=== PATIENT | male | born 1975 | race African-American/Black ===

== ENCOUNTER 2016-09-04 10:36 | Emergency (ER) | payer SELFPAY ==
[~2016-09-04] VITALS: Ht 182.9 cm; Wt 84.0 kg
[2016-09-04 10:42] VITALS: Ht 182.9 cm; Wt 84.0 kg
[2016-09-04] MEDS ORDERED: IBUPROFEN 800 MG TAB PO ONE (11:00)
--- NOTE | 2016-09-04 11:11 | RADRPT ---
PROCEDURE: XR Chest AP portable CLINICAL INDICATION: Chest pain TECHNIQUE: An AP portable radiograph of the chest was submitted. COMPARISON: None. FINDINGS: Support Hardware: None Cardiovascular: The cardiovascular silhouette appears unremarkable. Lung Carranza: The lung carranza appear clear with no nodule, alveolar infiltrate, or interstitial promi nence evident. Pleural Spaces: No pneumothorax or pleural effusion is identified. Osseous Structures: The osseous structures appear intact. Soft Tissues: The soft tissues appear unremarkable. IMPRESSION: Unremarkable portable chest. Physician Keith Date Time Electronically viewed and signed by Alvarez Fernandez Physician on 09/04/2016 11:11 /
[2016-09-04] MEDS ORDERED: IBUP-1542 PO (11:23)
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
[2016-09-04 12:23] VITALS: BP 126/86; PULSE 80; RESP 18
== END 2016-09-04 12:30 | disposition home or self-care (01) ==
LOC: E/R 10:36
DX: R07.9 Chest pain, unspecified (principal); F17.210 Nicotine dependence, cigarettes, uncomplicated
CPT/HCPCS: 71010; 93005

== ENCOUNTER 2016-10-04 10:58 | Inpatient (IN) | payer MEDICAID ==
[~2016-10-04] VITALS: Ht 182.9 cm; Wt 88.5 kg
[~2016-10-04 10:58] MED LIST: IBUP-1542 PO
[2016-10-04] MEDS ORDERED: morphine 4 MG/ML VIAL IV STA ×3 (12:22→18:42)
[2016-10-04] MEDS ORDERED: ONDANSETRON 4 MG INJ IV STA (12:22)
[2016-10-04 13:01] LABS: ADD SCAN DIFF NO
[2016-10-04 13:05] LABS: BASOPHILS % 0.2 % (0.0-2.0); EOSINOPHILS # 0.3 10^3/ul (0.0-0.5); EOSINOPHILS % 4.5 % (0.0-7.0); HEMOGLOBIN 13.6 g/dl (14.0-18.0); LYMPHOCYTES # 1.2 10^3/ul (0.8-2.9); LYMPHOCYTES % 18.5 % (15.0-51.0); MEAN CORPUSCULAR HEMOGLOBIN 27.9 pg (29.0-33.0); MEAN CORPUSCULAR VOLUME 82.1 fl (82.0-101.0); MEAN PLATELET VOLUME 9.8 fl (7.4-10.4); MONOCYTE # 0.6 10^3/ul (0.3-0.9); MONOCYTES % 9.5 % (0.0-11.0); NEUTROPHIL # 4.1 10^3/ul (1.6-7.5); NEUTROPHILS % 66.8 % (39.0-77.0); PLATELET COUNT 196 10^3/UL (140-415); RED BLOOD COUNT 4.87 10^6/ul (4.70-6.10); RED CELL DISTRIBUTION WIDTH 12.9 % (11.5-14.5); WHITE BLOOD COUNT 6.2 10^3/ul (4.8-10.8)
--- NOTE | 2016-10-04 13:12 | RADRPT ---
PROCEDURE: Chest Radiograph. CLINICAL INDICATION: Chest pain. Back pain. TECHNIQUE: Single frontal chest radiograph. COMPARISON: Chest radiograph 09/04/2016 FINDINGS: The cardiomediastinal silhouette is within normal limits. No infiltrate or effusion is seen. Th e bones are intact. IMPRESSION: 1. Unremarkable chest radiograph. RPTAT: KK .Maulik Joseph MD, MD Date Time Electronically viewed and signed by .Maulik Joseph MD, on 10/04/2016 13:12 .B/
[2016-10-04 13:20] LABS: CHLORIDE 101 mmol/L (97-110)
[2016-10-04 13:21] LABS: POTASSIUM 3.7 mmol/L (3.5-5.1); SODIUM 137 mmol/L (135-144)
[2016-10-04 13:22] LABS: INR 0.94; PROTIME 12.6 Sec (12.2-14.2)
[2016-10-04 13:23] LABS: CREATININE 0.91 mg/dl (0.61-1.24); PARTIAL THROMBOPLASTIN TIME 21.6 Sec (25.0-35.0)
[2016-10-04 13:24] LABS: ANION GAP 11 (8-16); BLOOD UREA NITROGEN 11 mg/dl (7-20); CALCIUM 8.5 mg/dl (8.4-10.2); CARBON DIOXIDE 29 mmol/L (21-31); GLUCOSE 107 mg/dl (70-220)
[2016-10-04 13:25] LABS: D-DIMER 3778.32 ng/ml (<460)
[2016-10-04 13:36] LABS: TROPONIN-I < 0.012 ng/ml (0.00-0.12)
[2016-10-04] MEDS ORDERED: SOD CHLORIDE 0.9% 100 ML ONE (13:57)
[2016-10-04] MEDS ORDERED: IOHEXOL 100 ML ONE (13:57)
--- NOTE | 2016-10-04 14:00 | RADRPT ---
PROCEDURE: US DVT. CLINICAL INDICATION: Left calf pain. History of deep venous thrombosis TECHNIQUE: Multiple longitudinal and transverse images of the left lower extremity veins were obta ined with anderson scale and color Doppler imaging. 2D grayscale measurements with compression, color D oppler flow, and augmentation was performed. The calf veins were interrogated as well. COMPARISON: No prior studies are available for comparison. FINDINGS: The left common femoral, superficial femoral and popliteal veins are normally compressible throughou t. Color flow demonstrates normal filling of the vessel. Normal waveforms are visualized and there is normal response to augmentation. However the posterior tibial and peroneal veins demonstrate some echogenic material and are not comp ressible. IMPRESSION: 1. Thrombus seen in the left posterior tibial and peroneal veins. The common femoral, femoral vein and popliteal veins are unremarkable however. Note: A call report was made to Irina Myrick on 10/04/2016 1:58:07 PM. RPTAT: [facility] Physician Gretel Date Time Electronically viewed and signed by Physician Gretel on 10/04/2016 13:59 /
--- NOTE | 2016-10-04 14:41 | RADRPT ---
PROCEDURE: CT ANGIOGRAPHY CHEST CLINICAL INDICATION: Shortness of breath TECHNIQUE: Volumetrically acquired images of the thorax obtained with intravenous contrast were re formatted in the axial, coronal, and sagittal planes. CTDI = 13.3 mGy; DLP = 524 mGy-cm. 100 cc of Omnipaque 350 was administered. 3D MIP multiplanar reconstructions were performed and evaluated on the workstation. One or more of the following dose reduction technique were used: Automatic exposure control, adjustment of the mA and/or kV according to patient size, and use of iterative reconstruct ion technique. COMPARISON: 10/04/2016. FINDINGS: LOWER NECK AND CHEST WALL: Normal. AIRWAYS: The trachea and large airways are normal. Minimal bronchial wall thickening is seen. LUNGS: Clear. No suspicious nodules, masses, or consolidation. PLEURA: Unremarkable. No pleural thickening or effusions. LYMPH NODES: No significant axillary, hilar, or mediastinal lymphadenopathy by CT size criteria. CARDIAC: The heart size is normal. No pericardial effusion. VASCULAR: There is segmental filling defects seen in the right lower lobe pulmonary arteries as well as the left lobe are and segmental pulmonary arteries. The aorta and main pulmonary artery are nor mal in caliber. Aortic and coronary atherosclerotic calcifications are present. OSSEOUS: No suspicious osseous lesions. Scattered degenerative changes of the thoracic spine is vis ualized. Limited evaluation of the upper abdomen is unremarkable. IMPRESSION: 1. Acute pulmonary emboli seen in the left lower lobar and segmental arteries as well as the right lower lobe segmental arteries. These findings were discussed with Dr. Carcamo at 10/04/2016 2:40:22 PM . 2. Minimal bronchial wall thickening may be sequela of bronchitis, asthma, or other nonspecific air way inflammation. RPTAT:PP .Donavan Garcia MD, MD Date Time Electronically viewed and signed by .Donavan Garcia MD, MD on 10/04/2016 14:40 .V/
[2016-10-04] MEDS ORDERED: NACL 0.9% 3 ML SYG IV SCH (16:00)
[2016-10-04] MEDS ORDERED: morphine 2 MG INJ IV PRN (16:00)
--- NOTE | 2016-10-04 16:07 | ERA ---
ER Documentation Chief Complaint Date/Time DATE: 10/04/16 TIME: 15:47 Chief Complaint lt side lower back pain after plasma donation yesterday , left calf pain HPI 41-year-old male complaining of left mid back pain since yesterday. The pain is sharp and constant, onset gradually last night. Patient stated that he had pulmonary embolism 3 years ago, this pain feels exactly like the previous PE. He currently has shortness of breath. He gave plasma donation yesterday. Patient also complaining of left calf pain since yesterday. He reports subjective fever last night, but did not check his temperature. Patient stated that he was on anticoagulant for 6 month after his previous PE. Denies smoking cigarettes, smoke marijuana and drink alcohol on occasion. Denies illicit drug use. Denies any other medical history. ROS All systems reviewed and are negative except as per history of present illness. Medications Home Meds Active Scripts Ibuprofen* (Motrin*) 600 Mg Tab, 600 MG PO Q6H Y for PAIN AND OR ELEVATED TEMP, #30 TAB Prov:JOHN CAUSEY MD 09/04/16 Allergies Allergies: Coded Allergies: No Known Allergy (Unverified , 10/04/16) PMhx/Soc Medical and Surgical Hx: pt denies Surgical Hx History of Surgery: No Anesthesia Reaction: No Hx Neurological Disorder: No Hx Respiratory Disorders: No Hx Cardiac Disorders: No Hx Psychiatric Problems: No Hx Miscellaneous Medical Probl: Yes (blood clots ( lung)) Hx Alcohol Use: Yes Hx Substance Use: Yes (marijuana) Hx Tobacco Use: Yes Smoking Status: Current every day smoker Physical Exam Vitals Vital Signs Date Time Temp Pulse Resp B/P Pulse Ox O2 Delivery O2 Flow Rate FiO2 10/04/16 15:22 102 20 118/68 100 Nasal Cannula 2.0 10/04/16 11:00 99.2 92 18 134/82 100 Physical Exam General: Well-developed, well-nourished, conscious and coherent, appears to be pain Skin: Warm and dry without rash, good texture and turgor Head: Normocephalic without evidence of trauma Eyes: Sclera and conjunctivae normal; pupils equal, round, and reactive to light; extraocular movements are intact Neck: Supple without meningismus or adenopathy. Carotids are equal. Trachea midline. No bruits or JVD Chest: Normal AP diameter, good expansion without retractions. Nontender. Lungs are clear to auscultate bilaterally with good tidal volume Heart: Regular rate and rhythm. No murmur, rub, or gallop heard Abdomen: Soft and nontender without masses, guarding, or rebound. Bowel sounds are active. No hepatosplenomegaly Back: Without spinal or CVA tenderness. No tenderness to palpation in the posterior chest wall. Extremities: Full range of motion. Good strength bilaterally. No clubbing, cyanosis, or edema. Peripheral pulses are intact. Sensation intact. No erythema, warmness, or swelling noted in the left calf, mildly tender Neuro: Alert and oriented. Mental status normal, speech clear. Cranial nerves grossly intact Result Diagram: 10/04/16 1250 10/04/16 1250 Results 24 hrs Laboratory Tests Test 10/04/16 12:50 White Blood Count 6.210^3/ul Red Blood Count 4.8710^6/ul Hemoglobin 13.6g/dl Hematocrit 40.0% Mean Corpuscular Volume 82.1fl Mean Corpuscular Hemoglobin 27.9pg Mean Corpuscular Hemoglobin Concent 34.0g/dl Red Cell Distribution Width 12.9% Platelet Count 89519^3/UL Mean Platelet Volume 9.8fl Neutrophils % 66.8% Lymphocytes % 18.5% Monocytes % 9.5% Eosinophils % 4.5% Basophils % 0.2% Nucleated Red Blood Cells % 0.0/100WBC Neutrophils # 4.110^3/ul Lymphocytes # 1.210^3/ul Monocytes # 0.610^3/ul Eosinophils # 0.310^3/ul Basophils # 0.010^3/ul Nucleated Red Blood Cells # 0.010^3/ul Prothrombin Time 12.6Sec Prothrombin Time Ratio 1.0 INR International Normalized Ratio 0.94 Activated Partial Thromboplast Time 21.6Sec D-Dimer 3778.32ng/ml D-Dimer Comment Sodium Level 137mmol/L Potassium Level 3.7mmol/L Chloride Level 101mmol/L Carbon Dioxide Level 29mmol/L Anion Gap 11 Blood Urea Nitrogen 11mg/dl Creatinine 0.91mg/dl Glucose Level 107mg/dl Calcium Level 8.5mg/dl Troponin I < 0.012ng/ml Current Medications Medications (Trade) Dose Ordered Sig/Eleazar Route PRN Reason Start Time Stop Time Status Last Admin Dose Admin Morphine Sulfate (morphine) 4 mg ONCE STAT IV 10/04/16 12:22 10/04/16 12:26 DC 10/04/16 12:58 Ondansetron HCl (Zofran Inj) 4 mg ONCE STAT IV 10/04/16 12:22 10/04/16 12:26 DC 10/04/16 12:58 IV Flush 10 ml 10 ml STK-MED ONCE .ROUTE 10/04/16 13:57 10/04/16 13:58 DC Sodium Chloride 100 ml @ ud STK-MED ONCE .ROUTE 10/04/16 13:57 10/04/16 13:58 DC 10/04/16 14:14 Iohexol (Omnipaque) 100 ml @ ud STK-MED ONCE .ROUTE 10/04/16 13:57 10/04/16 13:58 DC 10/04/16 14:15 Morphine Sulfate (morphine) 4 mg ONCE STAT IV 10/04/16 15:24 10/04/16 15:27 DC 10/04/16 15:31 Enoxaparin Sodium (Lovenox) 85 mg Q12 SC 10/04/16 17:30 PROCEDURE: Chest Radiograph. CLINICAL INDICATION: Chest pain. Back pain. TECHNIQUE: Single frontal chest radiograph. COMPARISON: Chest radiograph 09/04/2016 FINDINGS: The cardiomediastinal silhouette is within normal limits. No infiltrate or effusion is seen. The bones are intact. IMPRESSION: 1. Unremarkable chest radiograph. RPTAT: KK .Maulik Joseph MD, Date Time Electronically viewed and signed by .Maulik Joseph MD, MD on 2016 13:12 .B/ CC: MARIO ALBERTO RUIZ NP PROCEDURE: US DVT. CLINICAL INDICATION: Left calf pain. History of deep venous thrombosis TECHNIQUE: Multiple longitudinal and transverse images of the left lower extremity veins were obtained with anderson scale and color Doppler imaging. 2D grayscale measurements with compression, color Doppler flow, and augmentation was performed. The calf veins were interrogated as well. COMPARISON: No prior studies are available for comparison. FINDINGS: The left common femoral, superficial femoral and popliteal veins are normally compressible throughout. Color flow demonstrates normal filling of the vessel. Normal waveforms are visualized and there is normal response to augmentation. However the posterior tibial and peroneal veins demonstrate some echogenic material and are not compressible. IMPRESSION: 1. Thrombus seen in the left posterior tibial and peroneal veins. The common femoral, femoral vein and popliteal veins are unremarkable however. Note: A call report was made to [facility]. Mario Alberto Ruiz on 10/04/2016 1:58:07 PM. RPTAT: [facility] Physician Gretel Date Time Electronically viewed and signed by Physician Gretel on 10/04/2016 13: 59 JH/ CC: MARIO ALBERTO RUIZ NP PROCEDURE: CT ANGIOGRAPHY CHEST CLINICAL INDICATION: Shortness of breath TECHNIQUE: Volumetrically acquired images of the thorax obtained with intravenous contrast were reformatted in the axial, coronal, and sagittal planes. CTDI = 13.3 mGy; DLP = 524 mGy-cm. 100 cc of Omnipaque 350 was administered. 3D MIP multiplanar reconstructions were performed and evaluated on the workstation. One or more of the following dose reduction technique were used: Automatic exposure control, adjustment of the mA and/or kV according to patient size, and use of iterative reconstruction technique. COMPARISON: 10/04/2016. FINDINGS: LOWER NECK AND CHEST WALL: Normal. AIRWAYS: The trachea and large airways are normal. Minimal bronchial wall thickening is seen. LUNGS: Clear. No suspicious nodules, masses, or consolidation. PLEURA: Unremarkable. No pleural thickening or effusions. LYMPH NODES: No significant axillary, hilar, or mediastinal lymphadenopathy by CT size criteria. CARDIAC: The heart size is normal. No pericardial effusion. VASCULAR: There is segmental filling defects seen in the right lower lobe pulmonary arteries as well as the left lobe are and segmental pulmonary arteries. The aorta and main pulmonary artery are normal in caliber. Aortic and coronary atherosclerotic calcifications are present. OSSEOUS: No suspicious osseous lesions. Scattered degenerative changes of the thoracic spine is visualized. Limited evaluation of the upper abdomen is unremarkable. IMPRESSION: 1. Acute pulmonary emboli seen in the left lower lobar and segmental arteries as well as the right lower lobe segmental arteries. These findings were discussed with Dr. Carcamo at 10/04/2016 2:40:22 PM. 2. Minimal bronchial wall thickening may be sequela of bronchitis, asthma, or other nonspecific airway inflammation. RPTAT:PP .Donavan Garcia MD, MD Date Time Electronically viewed and signed by .Donavan Garcia MD, on 10/04/2016 14:40 .V/ CC: MARIO ALBERTO RUIZ. [facility] Procedures/MDM Well-appearing 41-year-old male with history of PE presented to ED with left mid back pain, left calf pain, and shortness of breath. EKG: Normal sinus rhythm rate 96 bpm, normal axis. No ST segment elevation or depression. No ectopic beats. No QT prolongation. No other EKG abnormalities. EKG read by Dr. Singer. Checks x-ray is negative for acute cardiopulmonary processes. CBC, CMP, PT/PTT are all unremarkable. Troponin is negative. D-dimer is 3778. CT angiography of the chest is obtained, acute pulmonary emboli were seen in the left lower lobar and segmental arteries as well as the right lower lobe segmental arteries. Patient is oxygen saturation remains at 100% throughout the ED course, hemodynamically stable. Morphine 4 mg was given to the patient initially for pain. Patient appeared to be comfortable after morphine, but still complaining of pain. Additional 4 mg morphine given to the patient. I spoke to the hospitalist, Dr. Beard. Dr. Hirsch agrees to admit the patient to [facility] floor. The case was reviewed and discussed with Dr. Jordan, who agrees with the plan of care including labs, treatment, and advanced imaging as appropriate. Departure Diagnosis: Primary Impression: Pulmonary embolism Qualified Code: I26.99 - Other acute pulmonary embolism without acute cor pulmonale Additional Impression: DVT (deep venous thrombosis) Qualified Code: I82.432 - Deep vein thrombosis (DVT) of popliteal vein of left lower extremity, unspecified chronicity Condition: Stable MARIO ALBERTO RUIZ NP October 04, 2016 15:57
--- NOTE | 2016-10-04 16:50 | HP ---
DATE OF ADMISSION: 10/04/2016 REASON FOR ADMISSION: Left calf pain and left-sided chest wall pain. Procurement Representative: 1. Keturah Sue MD, Hematology. HISTORY OF PRESENT ILLNESS: This is a 41-year-old -Serbian male with past medical history of pulmonary embolism approximately 3 years ago that was treated with 6 months of Coumadin, who came to the emergency room with chief complaint of sudden onset of left calf pain followed by left-sided chest pain that started on 10/03/2016. He frequently gives donation of his plasma. He had his plasma donated on 10/03/2016, during which he felt left calf pain that became progressively worse towards the evening and late night. This was also associated with left chest wall pain that was worsened with deep inspiration. The patient denied any diaphoresis, nausea, or vomiting. The patient denied any headache. He denied any shortness of breath. He denied any fevers or chills. In the emergency room, the patient was noticed to have an elevated D-dimer. The patient underwent a CT angiogram of the chest that showed acute pulmonary emboli seen in the left lower lobar and segmental arteries as well as right lower lobe segmental arteries. The patient also underwent a bilateral lower extremity venous Doppler study that showed thrombosis in the left posterior tibial and peroneal veins. PAST MEDICAL HISTORY: Pulmonary embolism. PAST SURGICAL HISTORY: Denies. HOME MEDICATIONS: None. ALLERGIES: NO KNOWN DRUG ALLERGIES. 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 Occasional alcohol drinker and occasional tobacco smoker. Also smokes marijuana in between. FAMILY HISTORY: Negative for any hypercoagulability. REVIEW OF SYSTEMS: A 12-point review of systems was made and the review of systems is negative other that what is mentioned in the history of present illness. PHYSICAL EXAMINATION: VITAL SIGNS: Temperature 99.2, pulse rate 102, respiratory rate 20, blood pressure 118/62, oxygen saturation 100% on low-flow O2. GENERAL: This is well-built, well-nourished -Serbian male lying in bed in no apparent distress. HEENT: Head normocephalic and atraumatic. Eyes: Anicteric sclerae. Conjunctivae clear. ENT: Nasal septum is midline. Oral mucosa is moist. NECK: Supple. No JVD noticed. RESPIRATORY: Bilaterally diminished breath sounds. No adventitious breath sounds heard. No use of accessory muscles of respiration. CARDIAC: Regular rate and rhythm. Sinus tachycardia. ABDOMEN: Soft, nontender and nondistended. Bowel sounds positive in all 4 quadrants. GENITOURINARY: Deferred. EXTREMITIES: No cyanosis, no clubbing, no edema. Calf tenderness of the left leg. Peripheral pulses palpable. NEUROLOGIC: The patient is awake, alert and oriented. Cranial nerves are grossly intact. LABORATORY AND DIAGNOSTIC DATA: 1. WBC 6.3, hemoglobin 13.6, hematocrit 40.0, platelet count 196. Sodium 137, potassium 3.7, chloride 101, carbon dioxide 29, anion gap 11, BUN 11, creatinine 0.91, glucose 107, calcium 8.5. Troponin I less than 0.012. PT 12.6 , INR 0.94. D-dimer 3778. 2. Chest x-ray. Unremarkable chest radiograph. 3. Left lower extremity venous Doppler study. Thrombus seen in the left posterior tibial and peroneal veins. 4. CT angiogram of the chest. Acute pulmonary embolus in the left lower lobar and segmental arteries as well as right lower lobe segmental arteries. Minimal bronchial wall thickening, may be saccular bronchitis, asthma or other nonspecific airway inflammation. IMPRESSION: This is a 41-year-old -Serbian male with prior history of pulmonary embolism, who came to the emergency room with chief complaint of left calf pain as well as chest pain, who was found to have evidence of left lower extremity deep venous thrombosis as well as bilateral pulmonary emboli, who will be admitted here for further treatment and evaluation. ASSESSMENT AND PLAN: 1. Bilateral pulmonary emboli. The patient will be started on therapeutic Lovenox. The patient denied any risks factors including any long flight, prolonged immobility or family history. The patient will be worked up for hypercoagulable disorder including protein C, protein S, antithrombin III, factor V Leiden mutation, prothrombin gene mutation and lupus anticoagulant. A hematology consult will be obtained. 2. Left lower extremity deep venous thrombosis. Plan of care as per #1. Plan. The patient will be admitted to inpatient setting. The patient will be started on a regular diet. The patient will be started on gastrointestinal prophylaxis. The patient will be started on therapeutic anticoagulation for his underlying DVT and PE. Activities will be bed rest until the morning. The patient will remain a FULL CODE. The rest of the patient's management will be based on the clinical course, the results of diagnostic studies, and inputs from consultants. Based on the patient's clinical presentation, he most probably requires at least 1 midnight's stay for further management and evaluation of his clinical presentation. The case and management of this patient was fully discussed with Dr. Bustillo. NING BUSTILLO MD, AM/PEDRO Conf#: [id number] DID#: [id number] MTDD
[2016-10-04] MEDS: ENOXAPARIN 80 MG/0.8 ML SYG SC SCH (16:51)
[2016-10-04 17:40] LABS: BARBITURATES NEGATIVE (NEGATIVE); BENZODIAZEPINES NEGATIVE (NEGATIVE); CANNABINOIDS NEGATIVE (NEGATIVE); COCAINE NEGATIVE (NEGATIVE); OPIATES POSITIVE (NEGATIVE)
[2016-10-04 17:46] LABS: INR 0.95; PARTIAL THROMBOPLASTIN TIME 24.6 Sec (25.0-35.0); PROTIME 12.7 Sec (12.2-14.2)
[2016-10-04 18:24] VITALS: TEMP 99.4
[2016-10-04] MEDS ORDERED: ONDANSETRON 4 MG INJ IV PRN (18:30)
[2016-10-04] MEDS ORDERED: ACETAMINOPHEN 325 MG TAB PO PRN (18:30)
[2016-10-04] MEDS: HYDROmorphONE 1 MG/ML SYG IV PRN (20:43)
[2016-10-04] MEDS: FAMOTIDINE 20 MG TAB PO SCH (21:54)
[2016-10-04 22:21] VITALS: Ht 182.9 cm; Wt 88.5 kg
[2016-10-04 22:29] VITALS: BP 128/60; PULSE 95; RESP 18
[2016-10-05] MEDS: ACETAMINOPHEN 325 MG TAB PO PRN (00:46)
[2016-10-05 05:40] LABS: ADD SCAN DIFF NO
[2016-10-05 05:45] LABS: BASOPHILS % 0.4 % (0.0-2.0); EOSINOPHILS # 0.2 10^3/ul (0.0-0.5); EOSINOPHILS % 4.1 % (0.0-7.0); HEMATOCRIT 35.2 % (42.0-52.0); HEMOGLOBIN 11.9 g/dl (14.0-18.0); LYMPHOCYTES # 1.2 10^3/ul (0.8-2.9); LYMPHOCYTES % 20.8 % (15.0-51.0); MEAN CORPUSCULAR HEMOGLOBIN 27.9 pg (29.0-33.0); MEAN CORPUSCULAR HGB CONC 33.8 g/dl (32.0-37.0); MEAN CORPUSCULAR VOLUME 82.4 fl (82.0-101.0); MEAN PLATELET VOLUME 10.1 fl (7.4-10.4); MONOCYTE # 0.8 10^3/ul (0.3-0.9); MONOCYTES % 14.9 % (0.0-11.0); NEUTROPHIL # 3.3 10^3/ul (1.6-7.5); NEUTROPHILS % 59.6 % (39.0-77.0); PLATELET COUNT 155 10^3/UL (140-415); RED BLOOD COUNT 4.27 10^6/ul (4.70-6.10); RED CELL DISTRIBUTION WIDTH 12.6 % (11.5-14.5); WHITE BLOOD COUNT 5.6 10^3/ul (4.8-10.8)
[2016-10-05 06:05] LABS: ALBUMIN 2.8 g/dl (3.3-4.9)
[2016-10-05 06:06] LABS: POTASSIUM 3.6 mmol/L (3.5-5.1)
[2016-10-05 06:08] LABS: ALBUMIN/GLOBULIN RATIO 1.03; BILIRUBIN,INDIRECT 0.8 mg/dl (0-1.1); BILIRUBIN,TOTAL 0.8 mg/dl (0.2-1.3); CREATININE 0.89 mg/dl (0.61-1.24); TOTAL PROTEIN 5.5 g/dl (6.1-8.1)
[2016-10-05 06:09] LABS: CALCIUM 7.9 mg/dl (8.4-10.2)
[2016-10-05 07:47] LABS: CHOL/HDL RATIO 3.4 RATIO; MAGNESIUM 1.8 mg/dl (1.7-2.5); PHOSPHORUS 3.8 mg/dl (2.5-4.9)
[2016-10-05 08:14] LABS: THYROID STIMULATING HORMONE 0.481 MIU/L (0.465-4.680)
[2016-10-05 08:32] VITALS: BP 111/59; RESP 18
[2016-10-05] MEDS: HYDROmorphONE 1 MG/ML SYG IV PRN ×4 (09:24→20:01)
[2016-10-05] MEDS: FAMOTIDINE 20 MG TAB PO SCH ×2 (09:24→21:12)
[2016-10-05] MEDS: ENOXAPARIN 80 MG/0.8 ML SYG SC SCH ×2 (09:34→21:10)
--- NOTE | 2016-10-05 15:56 | CONS ---
Date/Time of Note Date/Time of Note DATE: 10/05/16 TIME: 15:48 Assessment/Plan Assessment/Plan Chief Complaint/Hosp Course The patient is a 41 year old male with: 1. Bilateral pulmonary emboli. The patient will be started on therapeutic Lovenox. Given recurrent PE, he may warrant lifelong anticoagulation. The patient denied other risks factors including any long flight, prolonged immobility or family history. The patient will be worked up for hypercoagulable disorder including protein C, protein S, antithrombin III, factor V Leiden mutation, prothrombin gene mutation and lupus anticoagulant; will also add beta2 glycoprotein IgM and IgG and anticardiolipin IgM and IGG. 2. Left lower extremity deep venous thrombosis. Plan of care as per #1. - Patient on therapeutic lovenox and started on coumadin. Will need to overlap coumadin and lovenox at least 5 days and until INR > 2 for 2 days. If patient found to be negative for antiphospholipid antibody syndrome, could switch to one of the new oral anticoaulgants such as eliquis or xarelto. - Smoking cessation discussed as contributes to hypercoagulable state - patient states that he will stop entirely - Continue to monitor for worsening of hemoptysis while on anticoagulation - so far stable. Patient on 2 L NC. - Patient should follow up with me or Dr. Braxton upon discharge Problems: Consultation Date/Type/Reason Admit Date/Time October 04, 2016 at 18:31 Date of Consultation: October 05, 2016 Type of Consultation: Hematology Reason for Consultation Recurrent PE Hx of Present Illness This is a 41-year-old -Italian male with past medical history of idiopathic pulmonary embolism approximately 3 years ago that was treated with 6 months of Coumadin, who came to the emergency room with chief complaint of sudden onset of left calf pain followed by left-sided chest pain that started on 10/03/2016. He frequently gives donation of his plasma. He had his plasma donated on , during which he felt the left calf pain that became progressively worse towards the evening and late night. This was also associated with left chest wall pain that was worsened with deep inspiration. The patient currently complains of bilateral pleuritic chest pain with SOB and mild left leg pain. He also complains of dime-sized hemoptysis. He denies any recent surgery, trauma, immobility, long plane or car rides. He has 1-2 cigarettes a couple of times per month, last a couple of weeks ago. In the emergency room, the patient was noticed to have an elevated D-dimer at 3778. The patient underwent a CT angiogram of the chest that showed acute pulmonary emboli seen in the left lower lobar and segmental arteries as well as right lower lobe segmental arteries. The patient also underwent a bilateral lower extremity venous Doppler study that showed thrombosis in the left posterior tibial and peroneal veins. Past Medical History Pulmonary embolism 3 years ago without precipitating factors, treated with coumadin for 6 months. HTN. 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 Occasional alcohol drinker and occasional tobacco smoker (1-2 cigarettes a couple of times per month). Also smokes marijuana in between. Smoking Status: Current every day smoker Exam/Review of Systems Vital Signs Vitals Vital Signs Date Time Temp Pulse Resp B/P Pulse Ox O2 Delivery O2 Flow Rate FiO2 10/05/16 10:00 Nasal Cannula 2.0 10/05/16 08:32 98.2 84 18 111/59 99 Intake and Output 10/04/16 10/04/16 10/05/16 15:00 23:00 07:00 Intake Total 200 ml 320 ml Output Total 900 ml Balance 200 ml -580 ml Exam Constitutional: alert, distress (mild respiratory distress. on 2L NC), oriented Head: normocephalic Eyes: nl conjunctiva Neck: supple Respiratory: clear to auscultation Cardiovascular: regular rate and rhythm Gastrointestinal: non-tender, soft Musculoskeletal: nl extremities to inspection (left calf TTP, no edema) Neurological: NEUROCRITICAL CARE PHYSICIAN II-XII intact Results Result Diagram: 10/05/16 0502 10/05/16 0502 Results 24 hrs Laboratory Tests Test 10/04/16 17:03 10/04/16 17:20 10/05/16 05:02 Urine Opiates Screen POSITIVE Urine Barbiturates NEGATIVE Urine Amphetamines Screen NEGATIVE Urine Benzodiazepines Screen NEGATIVE Urine Cocaine Screen NEGATIVE Urine Cannabinoids NEGATIVE Prothrombin Time 12.7 Prothrombin Time Ratio 1.0 INR International Normalized Ratio 0.95 Activated Partial Thromboplast Time 24.6 L White Blood Count 5.6 Red Blood Count 4.27 L Hemoglobin 11.9 L Hematocrit 35.2 L Mean Corpuscular Volume 82.4 Mean Corpuscular Hemoglobin 27.9 L Mean Corpuscular Hemoglobin Concent 33.8 Red Cell Distribution Width 12.6 Platelet Count 155 # Mean Platelet Volume 10.1 Neutrophils % 59.6 Lymphocytes % 20.8 Monocytes % 14.9 H Eosinophils % 4.1 Basophils % 0.4 Nucleated Red Blood Cells % 0.0 Neutrophils # 3.3 Lymphocytes # 1.2 Monocytes # 0.8 Eosinophils # 0.2 Basophils # 0.0 Nucleated Red Blood Cells # 0.0 Sodium Level 137 Potassium Level 3.6 Chloride Level 98 Carbon Dioxide Level 30 Anion Gap 13 Blood Urea Nitrogen 7 Creatinine 0.89 Glucose Level 107 Hemoglobin A1c 4.9 Calcium Level 7.9 L Phosphorus Level 3.8 Magnesium Level 1.8 Total Bilirubin 0.8 Direct Bilirubin 0.00 Indirect Bilirubin 0.8 Aspartate Amino Transf (AST/SGOT) 37 Alanine Aminotransferase (ALT/SGPT) 59 Alkaline Phosphatase 37 L Total Protein 5.5 L Albumin 2.8 L Globulin 2.70 Albumin/Globulin Ratio 1.03 Triglycerides Level 70 Cholesterol Level 122 LDL Cholesterol, Calculated 73 HDL Cholesterol 35 Cholesterol/HDL Ratio 3.4 Thyroid Stimulating Hormone (TSH) 0.481 Free Thyroxine 0.74 Medications Medications Current Medications Enoxaparin Sodium (Lovenox) 80 mg Q12 SC Last administered on 10/05/16 09:34; Admin Dose 80 MG; Start 10/04/16 at 16:35 Ondansetron HCl (Zofran Inj) 4 mg Q6H PRN IV NAUSEA AND/OR VOMITING; Start 10/04 at 16:00 Morphine Sulfate (morphine) 4 mg Q4H PRN IV SEVERE PAIN LEVEL 7-10; Start at 16:00 Magnesium Hydroxide (Milk Of Mag) 30 ml DAILY PRN PO CONSTIPATION; Start at 16:00 Famotidine (Pepcid) 20 mg Q12 PO Last administered on 10/05/16 09:24; Admin Dose 20 MG; Start 10/04/16 at 21:00 Acetaminophen (Tylenol Tab) 650 mg Q6H PRN PO PAIN AND OR ELEVATED TEMP Last administered on 10/05/16 00:46; Admin Dose 650 MG; Start 10/05/16 at 00:30 Warfarin Sodium (Coumadin) 5 mg DAILY@17 PO ; Start 10/05/16 at 17:00 Hydromorphone HCl (Dilaudid) 1 mg Q4H PRN IV PAIN; Start 10/05/16 at 13:30 CARRIE BALLARD MD October 05, 2016 15:56
[2016-10-05] MEDS: WARFARIN 5 MG TAB PO SCH (16:31)
[2016-10-05] MEDS: ONDANSETRON 4 MG INJ IV PRN (16:31)
[2016-10-05] MEDS: MAGNESIUM HYDROXIDE 30ML CUP PO PRN (17:10)
--- NOTE | 2016-10-05 17:50 | PN ---
Date/Time of Note Date/Time of Note DATE: 10/05/16 TIME: 17:49 Assessment/Plan VTE Prophylaxis VTE Prophylaxis Intervention: LMWH Lines/Catheters IV [facility]from [facility] Urinary Cath still in place: No Assessment/Plan Assessment/Plan 1. Bilateral pulmonary emboli. The patient will be started on therapeutic Lovenox. the etiology of the patient's some hypercoagulable state. The patient denied other risks factors including any long flight, prolonged immobility or family history. The patient will be worked up for hypercoagulable disorder including protein C, protein S, antithrombin III, factor V Leiden mutation, prothrombin gene mutation and lupus anticoagulant. A hematology consult will be obtained. 2. Left lower extremity deep venous thrombosis. Plan of care as per #1. Subjective 24 Hr Interval Summary Free Text/Dictation c/o leg pain, Bp stable Exam/Review of Systems Vital Signs Vitals Vital Signs Date Time Temp Pulse Resp B/P Pulse Ox O2 Delivery O2 Flow Rate FiO2 10/05/16 10:00 Nasal Cannula 2.0 10/05/16 08:32 98.2 84 18 111/59 99 Intake and Output 10/04/16 10/04/16 10/05/16 15:00 23:00 07:00 Intake Total 200 ml 320 ml Output Total 900 ml Balance 200 ml -580 ml Exam GENERAL: This is well-built, well-nourished -Ind[place]ian male lying in bed in no apparent distress. HEENT: Head normocephalic and atraumatic. Eyes: Anicteric sclerae. Conjunctivae clear. ENT: Nasal septum is midline. Oral mucosa is moist. NECK: Supple. No JVD noticed. RESPIRATORY: Bilaterally diminished breath sounds. No adventitious breath sounds heard. No use of accessory muscles of respiration. CARDIAC: Regular rate and rhythm. Sinus tachycardia. ABDOMEN: Soft, nontender and nondistended. Bowel sounds positive in all 4 quadrants. GENITOURINARY: Deferred. EXTREMITIES: No cyanosis, no clubbing, no edema. Calf tenderness of the left leg. Peripheral pulses palpable. NEUROLOGIC: The patient is awake, alert and oriented. Cranial nerves are grossly intact. Results Result Diagram: 10/05/16 0502 10/05/16 0502 Results 24 hrs Laboratory Tests Test 10/05/16 05:02 White Blood Count 5.6 Red Blood Count 4.27 L Hemoglobin 11.9 L Hematocrit 35.2 L Mean Corpuscular Volume 82.4 Mean Corpuscular Hemoglobin 27.9 L Mean Corpuscular Hemoglobin Concent 33.8 Red Cell Distribution Width 12.6 Platelet Count 155 # Mean Platelet Volume 10.1 Neutrophils % 59.6 Lymphocytes % 20.8 Monocytes % 14.9 H Eosinophils % 4.1 Basophils % 0.4 Nucleated Red Blood Cells % 0.0 Neutrophils # 3.3 Lymphocytes # 1.2 Monocytes # 0.8 Eosinophils # 0.2 Basophils # 0.0 Nucleated Red Blood Cells # 0.0 Sodium Level 137 Potassium Level 3.6 Chloride Level 98 Carbon Dioxide Level 30 Anion Gap 13 Blood Urea Nitrogen 7 Creatinine 0.89 Glucose Level 107 Hemoglobin A1c 4.9 Calcium Level 7.9 L Phosphorus Level 3.8 Magnesium Level 1.8 Total Bilirubin 0.8 Direct Bilirubin 0.00 Indirect Bilirubin 0.8 Aspartate Amino Transf (AST/SGOT) 37 Alanine Aminotransferase (ALT/SGPT) 59 Alkaline Phosphatase 37 L Total Protein 5.5 L Albumin 2.8 L Globulin 2.70 Albumin/Globulin Ratio 1.03 Triglycerides Level 70 Cholesterol Level 122 LDL Cholesterol, Calculated 73 HDL Cholesterol 35 Cholesterol/HDL Ratio 3.4 Thyroid Stimulating Hormone (TSH) 0.481 Free Thyroxine 0.74 Medications Medications Current Medications Enoxaparin Sodium (Lovenox) 80 mg Q12 SC Last administered on 10/05/16 09:34; Admin Dose 80 MG; Start 10/04/16 at 16:35 Ondansetron HCl (Zofran Inj) 4 mg Q6H PRN IV NAUSEA AND/OR VOMITING Last administered on 10/05/16 16:31; Admin Dose 4 MG; Start 10/04/16 at 16:00 Morphine Sulfate (morphine) 4 mg Q4H PRN IV SEVERE PAIN LEVEL 7-10; Start at 16:00 Magnesium Hydroxide (Milk Of Mag) 30 ml DAILY PRN PO CONSTIPATION Last administered on 10/05/16 17:10; Admin Dose 30 ML; Start 10/04/16 at 16:00 Famotidine (Pepcid) 20 mg Q12 PO Last administered on 10/05/16 09:24; Admin Dose 20 MG; Start 10/04/16 at 21:00 Acetaminophen (Tylenol Tab) 650 mg Q6H PRN PO PAIN AND OR ELEVATED TEMP Last administered on 10/05/16 00:46; Admin Dose 650 MG; Start 10/05/16 at 00:30 Warfarin Sodium (Coumadin) 5 mg DAILY@17 PO Last administered on 10/05/16 16:31 ; Admin Dose 5 MG; Start 10/05/16 at 17:00 Hydromorphone HCl (Dilaudid) 1 mg Q4H PRN IV PAIN Last administered on 15:54; Admin Dose 1 MG; Start 10/05/16 at 13:30 CHYNA SOOD MD October 05, 2016 17:50
[2016-10-05 19:25] VITALS: BP 121/60; RESP 18
[2016-10-06] MEDS: ACETAMINOPHEN 325 MG TAB PO PRN ×3 (01:00→20:28)
[2016-10-06 05:38] LABS: ADD SCAN DIFF NO
[2016-10-06 05:56] LABS: BASOPHILS % 0.3 % (0.0-2.0); EOSINOPHILS # 0.1 10^3/ul (0.0-0.5); EOSINOPHILS % 1.8 % (0.0-7.0); HEMATOCRIT 35.1 % (42.0-52.0); HEMOGLOBIN 12.1 g/dl (14.0-18.0); LYMPHOCYTES # 0.9 10^3/ul (0.8-2.9); LYMPHOCYTES % 12.5 % (15.0-51.0); MEAN CORPUSCULAR HEMOGLOBIN 27.9 pg (29.0-33.0); MEAN CORPUSCULAR HGB CONC 34.5 g/dl (32.0-37.0); MEAN CORPUSCULAR VOLUME 81.1 fl (82.0-101.0); MEAN PLATELET VOLUME 10.3 fl (7.4-10.4); MONOCYTE # 1.3 10^3/ul (0.3-0.9); MONOCYTES % 17.8 % (0.0-11.0); NEUTROPHIL # 4.8 10^3/ul (1.6-7.5); NEUTROPHILS % 67.3 % (39.0-77.0); PLATELET COUNT 163 10^3/UL (140-415); RED BLOOD COUNT 4.33 10^6/ul (4.70-6.10); RED CELL DISTRIBUTION WIDTH 11.9 % (11.5-14.5); WHITE BLOOD COUNT 7.1 10^3/ul (4.8-10.8)
[2016-10-06 06:06] LABS: INR 1.02; PROTIME 13.4 Sec (12.2-14.2)
[2016-10-06 06:07] LABS: PARTIAL THROMBOPLASTIN TIME 33.2 Sec (25.0-35.0)
[2016-10-06 06:09] LABS: CALCIUM 8.4 mg/dl (8.4-10.2); CREATININE 0.8 mg/dl (0.61-1.24); POTASSIUM 3.9 mmol/L (3.5-5.1)
[2016-10-06] MEDS: HYDROmorphONE 1 MG/ML SYG IV PRN ×3 (06:20→10:06)
[2016-10-06 08:11] VITALS: BP 114/62; RESP 18
[2016-10-06] MEDS: FAMOTIDINE 20 MG TAB PO SCH ×2 (10:06→21:17)
[2016-10-06] MEDS: ENOXAPARIN 80 MG/0.8 ML SYG SC SCH ×2 (10:12→21:19)
[2016-10-06] MEDS: HYDROmorphONE 2 MG/ML SYG IV PRN ×2 (14:15→19:14)
[2016-10-06 14:20] VITALS: BP 115/58; PULSE 66; RESP 20
[2016-10-06] MEDS: ONDANSETRON 4 MG INJ IV PRN ×2 (15:14)
[2016-10-06] MEDS: WARFARIN 5 MG TAB PO SCH (16:40)
--- NOTE | 2016-10-06 17:19 | PN ---
Date/Time of Note Date/Time of Note DATE: 10/06/16 TIME: 17:16 Assessment/Plan VTE Prophylaxis VTE Prophylaxis Intervention: LMWH, other (coumadin ) Lines/Catheters IV Catheter Type (from Nrs): [facility] Urinary Cath still in place: No Assessment/Plan Assessment/Plan 1. Bilateral pulmonary emboli. Recurrent, S/p CT chest angiogram, on Lovenox bridge with coumadin, 2. Left lower extremity deep venous thrombosis. on lovenox + coumadin 3. acute on chronic pain Plan: Continue coumadin and lovenox bridge once INR therapeutic pain- then will plan for d/c pt has no insurance, [place] [facility] follow up on discharge Increase dialudid to 2 mg IV Q 4 hr prn severe pain Subjective 24 Hr Interval Summary Free Text/Dictation c/o pain in left upper chest, Dialudid 1 mg not working, Bp stable, Exam/Review of Systems Vital Signs Vitals Vital Signs Date Time Temp Pulse Resp B/P Pulse Ox O2 Delivery O2 Flow Rate FiO2 10/06/16 14:20 99.2 66 20 115/58 100 Room Air 10/06/16 09:00 2.0 Intake and Output 10/05/16 10/05/16 10/06/16 15:00 23:00 07:00 Intake Total 1440 ml 660 ml Output Total 850 ml 1050 ml Balance 590 ml -390 ml Exam Constitutional: alert, oriented, well developed Psych: no complaints Head: normocephalic Eyes: nl conjunctiva ENMT: nl external ears & nose Respiratory: clear to auscultation Cardiovascular: nl pulses, regular rate and rhythm Gastrointestinal: bowel sounds, non-tender, soft Extremities: normal pulses Results Result Diagram: 10/06/16 0430 10/06/16 0430 Results 24 hrs Laboratory Tests Test 10/06/16 04:30 White Blood Count 7.1 # Red Blood Count 4.33 L Hemoglobin 12.1 L Hematocrit 35.1 L Mean Corpuscular Volume 81.1 L Mean Corpuscular Hemoglobin 27.9 L Mean Corpuscular Hemoglobin Concent 34.5 Red Cell Distribution Width 11.9 Platelet Count 163 Mean Platelet Volume 10.3 Neutrophils % 67.3 Lymphocytes % 12.5 L Monocytes % 17.8 H Eosinophils % 1.8 Basophils % 0.3 Nucleated Red Blood Cells % 0.0 Neutrophils # 4.8 Lymphocytes # 0.9 Monocytes # 1.3 H Eosinophils # 0.1 Basophils # 0.0 Nucleated Red Blood Cells # 0.0 Prothrombin Time 13.4 Prothrombin Time Ratio 1.0 INR International Normalized Ratio 1.02 Activated Partial Thromboplast Time 33.2 Sodium Level 132 L Potassium Level 3.9 Chloride Level 96 L Carbon Dioxide Level 32 H Anion Gap 8 Blood Urea Nitrogen 8 Creatinine 0.80 Glucose Level 111 Calcium Level 8.4 Medications Medications Current Medications Enoxaparin Sodium (Lovenox) 80 mg Q12 SC Last administered on 10/06/16 10:12; Admin Dose 80 MG; Start 10/04/16 at 16:35 Ondansetron HCl (Zofran Inj) 4 mg Q6H PRN IV NAUSEA AND/OR VOMITING Last administered on 10/06/16 15:14; Admin Dose 4 MG; Start 10/04/16 at 16:00 Morphine Sulfate (morphine) 4 mg Q4H PRN IV SEVERE PAIN LEVEL 7-10 Last administered on 10/06/16 02:27; Admin Dose 4 MG; Start 10/04/16 at 16:00 Magnesium Hydroxide (Milk Of Mag) 30 ml DAILY PRN PO CONSTIPATION Last administered on 10/05/16 17:10; Admin Dose 30 ML; Start 10/04/16 at 16:00 Famotidine (Pepcid) 20 mg Q12 PO Last administered on 10/06/16 10:06; Admin Dose 20 MG; Start 10/04/16 at 21:00 Acetaminophen (Tylenol Tab) 650 mg Q6H PRN PO PAIN AND OR ELEVATED TEMP Last administered on 10/06/16 11:07; Admin Dose 650 MG; Start 10/05/16 at 00:30 Warfarin Sodium (Coumadin) 5 mg DAILY@17 PO Last administered on 10/06/16 16:40 ; Admin Dose 5 MG; Start 10/05/16 at 17:00 Hydromorphone HCl (Dilaudid) 2 mg Q4H PRN IV PAIN Last administered on 14:15; Admin Dose 2 MG; Start 10/06/16 at 12:00 CHYNA SOOD MD October 06, 2016 17:19
--- NOTE | 2016-10-06 18:01 | CONS ---
Date/Time of Note Date/Time of Note DATE: 10/06/16 TIME: 17:59 Assessment/Plan Assessment/Plan Chief Complaint/Hosp Course pt has no insurance, [facility] follow up on dischargeThe patient is a 41 year old male with: 1. Bilateral pulmonary emboli. The patient will be started on therapeutic Lovenox. Given recurrent PE, he may warrant lifelong anticoagulation. The patient denied other risks factors including any long flight, prolonged immobility or family history. The patient will be worked up for hypercoagulable disorder including protein C, protein S, antithrombin III, factor V Leiden mutation, prothrombin gene mutation and lupus anticoagulant; will also add beta2 glycoprotein IgM and IgG and anticardiolipin IgM and IGG. 2. Left lower extremity deep venous thrombosis. Plan of care as per #1. - Patient on therapeutic lovenox and started on coumadin. Will need to overlap coumadin and lovenox at least 5 days and until INR > 2 for 2 days. INR currently 1.02. If patient found to be negative for antiphospholipid antibody syndrome, could switch to one of the new oral anticoaulgants such as eliquis or xarelto. - Smoking cessation discussed as contributes to hypercoagulable state - patient states that he will stop entirely - Continue to monitor for worsening of hemoptysis while on anticoagulation - so far stable to improved. Patient on 2 L NC. - per primary team, pt has no insurance, so will need to go to [facility] for follow up on discharge Problems: Consultation Date/Type/Reason Admit Date/Time October 04, 2016 at 18:31 Initial Consult Date 10/05/16 Type of Consultation: Hematology 24 HR Interval Summary Free Text/Dictation Patient states that he had a fever overnight but overall pain improved so he can sleep. Hemoptysis not worse, slightly better. Exam/Review of Systems Vital Signs Vitals Vital Signs Date Time Temp Pulse Resp B/P Pulse Ox O2 Delivery O2 Flow Rate FiO2 10/06/16 14:20 99.2 66 20 115/58 100 Room Air 10/06/16 09:00 2.0 Intake and Output 10/05/16 10/05/16 10/06/16 15:00 23:00 07:00 Intake Total 1440 ml 660 ml Output Total 850 ml 1050 ml Balance 590 ml -390 ml Exam Constitutional: alert, distress (mild respiratory distress. on 2L NC), oriented Head: normocephalic Eyes: nl conjunctiva Neck: supple Respiratory: clear to auscultation Cardiovascular: regular rate and rhythm Gastrointestinal: non-tender, soft Musculoskeletal: nl extremities to inspection (left calf TTP, no edema) Neurological: [employer] II-XII intact Results Result Diagram: 10/06/16 0430 10/06/16 0430 Results 24 hrs Laboratory Tests Test 10/06/16 04:30 White Blood Count 7.1 # Red Blood Count 4.33 L Hemoglobin 12.1 L Hematocrit 35.1 L Mean Corpuscular Volume 81.1 L Mean Corpuscular Hemoglobin 27.9 L Mean Corpuscular Hemoglobin Concent 34.5 Red Cell Distribution Width 11.9 Platelet Count 163 Mean Platelet Volume 10.3 Neutrophils % 67.3 Lymphocytes % 12.5 L Monocytes % 17.8 H Eosinophils % 1.8 Basophils % 0.3 Nucleated Red Blood Cells % 0.0 Neutrophils # 4.8 Lymphocytes # 0.9 Monocytes # 1.3 H Eosinophils # 0.1 Basophils # 0.0 Nucleated Red Blood Cells # 0.0 Prothrombin Time 13.4 Prothrombin Time Ratio 1.0 INR International Normalized Ratio 1.02 Activated Partial Thromboplast Time 33.2 Sodium Level 132 L Potassium Level 3.9 Chloride Level 96 L Carbon Dioxide Level 32 H Anion Gap 8 Blood Urea Nitrogen 8 Creatinine 0.80 Glucose Level 111 Calcium Level 8.4 Medications Medications Current Medications Enoxaparin Sodium (Lovenox) 80 mg Q12 SC Last administered on 10/06/16 10:12; Admin Dose 80 MG; Start 10/04/16 at 16:35 Ondansetron HCl (Zofran Inj) 4 mg Q6H PRN IV NAUSEA AND/OR VOMITING Last administered on 10/06/16 15:14; Admin Dose 4 MG; Start 10/04/16 at 16:00 Morphine Sulfate (morphine) 4 mg Q4H PRN IV SEVERE PAIN LEVEL 7-10 Last administered on 10/06/16 02:27; Admin Dose 4 MG; Start 10/04/16 at 16:00 Magnesium Hydroxide (Milk Of Mag) 30 ml DAILY PRN PO CONSTIPATION Last administered on 10/05/16 17:10; Admin Dose 30 ML; Start 10/04/16 at 16:00 Famotidine (Pepcid) 20 mg Q12 PO Last administered on 10/06/16 10:06; Admin Dose 20 MG; Start 10/04/16 at 21:00 Acetaminophen (Tylenol Tab) 650 mg Q6H PRN PO PAIN AND OR ELEVATED TEMP Last administered on 10/06/16 11:07; Admin Dose 650 MG; Start 10/05/16 at 00:30 Warfarin Sodium (Coumadin) 5 mg DAILY@17 PO Last administered on 10/06/16 16:40 ; Admin Dose 5 MG; Start 10/05/16 at 17:00 Hydromorphone HCl (Dilaudid) 2 mg Q4H PRN IV PAIN Last administered on 14:15; Admin Dose 2 MG; Start 10/06/16 at 12:00 TOCARRIE MD October 06, 2016 18:01
[2016-10-06 19:00] VITALS: BP 118/59; RESP 18
[2016-10-06] MEDS ORDERED: METOCLOPRAMIDE 10 MG INJ IV PRN (19:30)
[2016-10-06 20:32] VITALS: BP 129/62; PULSE 104; RESP 20
[2016-10-06 20:54] LABS: ADD UMIC NO; URINE BILIRUBIN (Dip) NEGATIVE (NEGATIVE); URINE BLOOD (Dip) NEGATIVE (NEGATIVE); URINE COLOR LT. YELLOW (YELLOW); URINE GLUCOSE (Dip) NEGATIVE (NEGATIVE); URINE KETONES (Dip) NEGATIVE (NEGATIVE); URINE LEUKOCYTE ESTERASE (Dip) NEGATIVE (NEGATIVE); URINE NITRITE (Dip) NEGATIVE (NEGATIVE); URINE TOTAL PROTEIN (Dip) NEGATIVE (NEGATIVE); URINE UROBILINOGEN (Dip) 4.0 E.U./dL (0.1-1.0)
[2016-10-07 00:03] VITALS: BP 116/58; PULSE 93; RESP 18
[2016-10-07] MEDS: HYDROmorphONE 2 MG/ML SYG IV PRN ×6 (00:49→22:10)
[2016-10-07 04:45] VITALS: BP 117/62; PULSE 97; RESP 18
[2016-10-07] MEDS: ACETAMINOPHEN 325 MG TAB PO PRN ×3 (04:51→20:12)
[2016-10-07 05:35] LABS: INR 1.06; PROTIME 13.8 Sec (12.2-14.2); PT RATIO 1.1
[2016-10-07 08:01] VITALS: BP 124/71; PULSE 92; RESP 22
[2016-10-07] MEDS: FAMOTIDINE 20 MG TAB PO SCH ×2 (09:14→20:12)
[2016-10-07] MEDS: ENOXAPARIN 80 MG/0.8 ML SYG SC SCH ×2 (09:16→20:16)
--- NOTE | 2016-10-07 11:50 | RADRPT ---
PROCEDURE: XR Chest. CLINICAL INDICATION: Fever and shortness of breath. Pulmonary embolism. TECHNIQUE: Two views. Frontal and lateral. COMPARISON: Chest x-ray dated 10/04/2016. CT pulmonary angiogram dated 10/04/2016 which demonstrat ed bilateral pulmonary emboli in the lower lobes with left worse than right. FINDINGS: There is mild air space disease at both lung bases with left worse than right. The lungs are otherw ise clear. The heart size is normal. There is no pleural effusion. There is no pneumothorax. IMPRESSION: 1. Mild air space disease at the lung bases with left worse than right. 2. Otherwise normal chest radiograph. RPTAT: QQ .Ravin Rodriguez MD, MD Date Time Electronically viewed and signed by .Ravin Rodriguez MD, on 10/07/2016 11:49 .R/
[2016-10-07] MEDS: LEVOFLOXACIN 500 MG TAB PO SCH (12:50)
--- NOTE | 2016-10-07 13:29 | HKNOTE ---
DATE OF SERVICE: 10/07/2016 SUBJECTIVE: Mr. Tyler, who is 41, has bilateral pulmonary embolisms and DVT. The patient is on Lo venox and Coumadin. His pro time INR is still 1.0. We need to continue it. The patient has some c ough. PHYSICAL EXAMINATION: GENERAL: Shows a moderately built male in mild respiratory distress. ENT: Normal. LUNGS: Normal except for a few rhonchi in the lungs. HEART: Normal. ABDOMEN: There is no hepatosplenomegaly or lymphadenopathy. LABORATORY DATA: His CBC and CMP are okay except for hemoglobin 12.1 with MCV 81. IMPRESSION: 1. Bilateral pulmonary embolisms, patient on anticoagulation. 2. Cough. Rule out bronchitis or pneumonia, but could be secondary to pulmonary embolism. PLAN: We will monitor him. We should continue his anticoagulation. The patient had a fever and th e chest x-ray shows questionable pneumonia. We may have to consider giving him antibiotics. Dictated By: EMMANUEL OLVERA/PEDRO Conf#: [id number] DID#: [id number]
[2016-10-07] MEDS ORDERED: PROMETHAZINE/CODEINE 5ML CUP PO ONE (13:30)
--- NOTE | 2016-10-07 13:30 | PN ---
Date/Time of Note Date/Time of Note DATE: 10/07/16 TIME: 13:27 Assessment/Plan VTE Prophylaxis VTE Prophylaxis Intervention: LMWH (coumadin ), other Lines/Catheters IV Catheter Type (from Nrs): Saline Lock Urinary Cath still in place: No Assessment/Plan Assessment/Plan 1. Bilateral pulmonary emboli. Recurrent, S/p CT chest angiogram, on Lovenox bridge with coumadin, 2. Left lower extremity deep venous thrombosis. on lovenox + coumadin 3. acute on chronic pain Plan: Continue coumadin and lovenox bridge- pt will need coumadin on discharge, he is Uninsured and follow up at [facility] once INR therapeutic pain- then will plan for d/c pt has no insurance, [facility] follow up on discharge decreased dialudid to 1.5 mg IV Q 4 hr prn severe pain promethazine/codeine cough syrup prn cough Subjective 24 Hr Interval Summary Free Text/Dictation c/o cough, Pain controlled, Dilaudid changed to 1.5 mg Exam/Review of Systems Vital Signs Vitals Vital Signs Date Time Temp Pulse Resp B/P Pulse Ox O2 Delivery O2 Flow Rate FiO2 10/07/16 12:30 100.8 10/07/16 08:01 92 22 124/71 98 Room Air 10/07/16 04:45 2.0 Intake and Output 10/06/16 10/06/16 10/07/16 15:00 23:00 07:00 Intake Total 1200 ml 1300 ml Output Total 600 ml 1800 ml Balance 600 ml -500 ml Exam Constitutional: alert, oriented, well developed Psych: no complaints Head: normocephalic Eyes: nl conjunctiva ENMT: nl external ears & nose Respiratory: clear to auscultation Cardiovascular: nl pulses, regular rate and rhythm Gastrointestinal: bowel sounds, non-tender, soft Extremities: normal pulses Results Result Diagram: 10/06/16 0430 10/06/16 0430 Results 24 hrs Laboratory Tests Test 10/06/16 20:30 10/07/16 04:31 Urine Color LT. YELLOW Urine Clarity CLEAR Urine pH 8.0 Urine Specific [place] 1.010 Urine Ketones NEGATIVE Urine Nitrite NEGATIVE Urine Bilirubin NEGATIVE Urine Urobilinogen 4.0 E.U./dL H Urine Leukocyte Esterase NEGATIVE Urine Hemoglobin NEGATIVE Urine Glucose NEGATIVE Urine Total Protein NEGATIVE Prothrombin Time 13.8 Prothrombin Time Ratio 1.1 INR International Normalized Ratio 1.06 CHYNA SOOD MD October 07, 2016 13:30
[2016-10-07] MEDS: MAGNESIUM HYDROXIDE 30ML CUP PO PRN (14:32)
[2016-10-07] MEDS: WARFARIN 5 MG TAB PO SCH (16:39)
[2016-10-07 20:19] VITALS: BP 133/69; RESP 19
[2016-10-07] MEDS: PROMETHAZINE/CODEINE 5ML CUP PO PRN (20:21)
[2016-10-08] MEDS: ACETAMINOPHEN 325 MG TAB PO PRN ×3 (02:40→18:21)
[2016-10-08] MEDS: HYDROmorphONE 2 MG/ML SYG IV PRN ×5 (02:40→22:21)
[2016-10-08 03:12] VITALS: BP 10/60; RESP 19
[2016-10-08 05:13] LABS: INR 1.11; PARTIAL THROMBOPLASTIN TIME 32.4 Sec (25.0-35.0); PROTIME 14.3 Sec (12.2-14.2); PT RATIO 1.1
[2016-10-08] MEDS: LEVOFLOXACIN 500 MG TAB PO SCH (06:12)
[2016-10-08 08:32] VITALS: BP 120/69; RESP 18
[2016-10-08] MEDS: PROMETHAZINE/CODEINE 5ML CUP PO PRN ×2 (09:43→22:28)
[2016-10-08] MEDS: ENOXAPARIN 80 MG/0.8 ML SYG SC SCH ×2 (09:43→20:28)
[2016-10-08] MEDS: FAMOTIDINE 20 MG TAB PO SCH ×2 (09:43→20:25)
[2016-10-08 11:00] VITALS: PULSE 100
--- NOTE | 2016-10-08 13:24 | PN ---
Date/Time of Note Date/Time of Note DATE: 10/08/16 TIME: 13:21 Assessment/Plan VTE Prophylaxis VTE Prophylaxis Intervention: LMWH, other (lovenox + coumadin ) Lines/Catheters IV C[facility]ter Type (from [facility]): [facility] Urinary Cath still in place: No Assessment/Plan Assessment/Plan 1. Bilateral pulmonary emboli. Recurrent, S/p CT chest angiogram, on Lovenox bridge with coumadin, 2. Left lower extremity deep venous thrombosis. on lovenox + coumadin 3. acute on chronic pain 4. Concerned about basilar atelectasis/early PNA- started on PO levaquin Plan: Continue coumadin and lovenox bridge- pt will need coumadin on discharge, he is Uninsured and follow up at [facility] once INR therapeutic pain- then will plan for d/c pt has no insurance, [facility] follow up on discharge decreased dialudid to 1.5 mg IV Q 4 hr prn severe pain promethazine/codeine cough syrup prn cough on PO levaquin Subjective 24 Hr Interval Summary Free Text/Dictation INR still 1.1, Pain controlled with dialudid IV Exam/Review of Systems Vital Signs Vitals Vital Signs Date Time Temp Pulse Resp B/P Pulse Ox O2 Delivery O2 Flow Rate FiO2 10/08/16 08:32 100.6 95 18 120/69 98 10/07/16 20:00 Nasal Cannula 2.0 Intake and Output 10/07/16 10/07/16 10/08/16 15:00 23:00 07:00 Intake Total 2330 ml 2500 ml Output Total 1100 ml 4000 ml Balance 1230 ml -1500 ml Exam Constitutional: alert, oriented, well developed Psych: no complaints Head: normocephalic Eyes: nl conjunctiva ENMT: nl external ears & nose Respiratory: clear to auscultation Cardiovascular: nl pulses, regular rate and rhythm Gastrointestinal: bowel sounds, non-tender, soft Extremities: normal pulses Results Result Diagram: 10/06/1642910/06/16 043 Results 24 hrs Laboratory Tests Test 10/08/16 04:40 Prothrombin Time 14.3 H Prothrombin Time Ratio 1.1 INR International Normalized Ratio 1.11 Activated Partial Thromboplast Time 32.4 Medications Medications Current Medications Enoxaparin Sodium (Lovenox) 80 mg Q12 SC Last administered on 10/08/16t 09:43; Admin Dose 80 MG; Start 10/04/16 at 16:35 Ondansetron HCl (Zofran Inj) 4 mg Q6H PRN IV NAUSEA AND/OR VOMITING Last administered on 10/06/16 15:14; Admin Dose 4 MG; Start 10/04/16 at 16:00 Morphine Sulfate (morphine) 4 mg Q4H PRN IV SEVERE PAIN LEVEL 7-10 Last administered on 10/06/16 02:27; Admin Dose 4 MG; Start 10/04/16 at 16:00 Magnesium Hydroxide (Milk Of Mag) 30 ml DAILY PRN PO CONSTIPATION Last administered on 10/07/16 14:32; Admin Dose 30 ML; Start 10/04/16 at 16:00 Famotidine (Pepcid) 20 mg Q12 PO Last administered on 10/08/16 09:43; Admin Dose 20 MG; Start 10/04/16 at 21:00 Acetaminophen (Tylenol Tab) 650 mg Q6H PRN PO PAIN AND OR ELEVATED TEMP Last administered on 10/08/16 09:43; Admin Dose 650 MG; Start 10/05/16 at 00:30 Warfarin Sodium (Coumadin) 5 mg DAILY@17 PO Last administered on 10/07/16 16:39 ; Admin Dose 5 MG; Start 10/05/16 at 17:00 Metoclopramide HCl (Reglan) 10 mg Q6H PRN IV Nausea Last administered on 19:39; Admin Dose 10 MG; Start 10/06/16 at 19:30 Hydromorphone HCl (Dilaudid) 1.5 mg Q4H PRN IV PAIN Last administered on 07:41; Admin Dose 1.5 MG; Start 10/07/16 at 05:00 Levofloxacin (Levaquin) 500 mg DAILY@06 PO Last administered on 10/08/16 06:12 ; Admin Dose 500 MG; Start 10/07/16 at 13:00 Promethazine HCl/ Codeine (Phenergan/ Codeine) 5 ml Q4H PRN PO COUGH Last administered on 10/08/16 09:43; Admin Dose 5 ML; Start 10/07/16 at 13:30 CHYNA SOOD MD October 08, 2016 13:24
[2016-10-08 18:20] VITALS: PULSE 98
[2016-10-08] MEDS: WARFARIN 7.5 MG TAB PO SCH (18:21)
[2016-10-08 19:10] VITALS: BP 127/69; RESP 16
[2016-10-09] MEDS: ACETAMINOPHEN 325 MG TAB PO PRN ×4 (01:54→23:42)
[2016-10-09] MEDS: HYDROmorphONE 2 MG/ML SYG IV PRN ×5 (02:30→22:06)
[2016-10-09 05:17] LABS: ADD SCAN DIFF NO
[2016-10-09 05:38] LABS: INR 1.11; PROTIME 14.3 Sec (12.2-14.2); PT RATIO 1.1
[2016-10-09 05:39] LABS: PARTIAL THROMBOPLASTIN TIME 36.7 Sec (25.0-35.0)
[2016-10-09 05:42] LABS: BASOPHILS % 0.1 % (0.0-2.0); EOSINOPHILS # 0.2 10^3/ul (0.0-0.5); EOSINOPHILS % 2.4 % (0.0-7.0); HEMATOCRIT 32.7 % (42.0-52.0); HEMOGLOBIN 10.8 g/dl (14.0-18.0); LYMPHOCYTES % 13.3 % (15.0-51.0); MEAN CORPUSCULAR HEMOGLOBIN 26.7 pg (29.0-33.0); MEAN CORPUSCULAR VOLUME 80.7 fl (82.0-101.0); MEAN PLATELET VOLUME 10.1 fl (7.4-10.4); MONOCYTE # 1.5 10^3/ul (0.3-0.9); MONOCYTES % 19.9 % (0.0-11.0); NEUTROPHIL # 4.8 10^3/ul (1.6-7.5); NEUTROPHILS % 63.9 % (39.0-77.0); PLATELET COUNT 256 10^3/UL (140-415); RED BLOOD COUNT 4.05 10^6/ul (4.70-6.10); RED CELL DISTRIBUTION WIDTH 12.7 % (11.5-14.5); WHITE BLOOD COUNT 7.5 10^3/ul (4.8-10.8)
[2016-10-09 05:45] LABS: ALBUMIN 3.1 g/dl (3.3-4.9); ALBUMIN/GLOBULIN RATIO 0.93; BILIRUBIN,INDIRECT 0.4 mg/dl (0-1.1); BILIRUBIN,TOTAL 0.4 mg/dl (0.2-1.3); CALCIUM 8.4 mg/dl (8.4-10.2); CREATININE 0.83 mg/dl (0.61-1.24); TOTAL PROTEIN 6.4 g/dl (6.1-8.1)
[2016-10-09] MEDS: LEVOFLOXACIN 500 MG TAB PO SCH (06:24)
[2016-10-09 07:54] VITALS: BP 125/69; RESP 18
[2016-10-09] MEDS: ENOXAPARIN 80 MG/0.8 ML SYG SC SCH ×2 (09:01→21:24)
[2016-10-09] MEDS: FAMOTIDINE 20 MG TAB PO SCH ×2 (09:02→21:18)
[2016-10-09 09:45] VITALS: BP 124/58; PULSE 93; RESP 20
[2016-10-09] MEDS ORDERED: IOHEXOL 350MG/ML 50 ML BTL ONE (09:50)
[2016-10-09] MEDS ORDERED: IOHEXOL 100 ML ONE (09:50)
[2016-10-09] MEDS ORDERED: SOD CHLORIDE 0.9% 100 ML ONE (09:50)
--- NOTE | 2016-10-09 10:28 | RADRPT ---
PROCEDURE: CTA Chest and pulmonary angiogram. CLINICAL INDICATION: Hemoptysis. Follow-up on and pulmonary emboli. TECHNIQUE: CT scan of the chest and CT pulmonary angiogram was performed on a multidetector high-r esolution CT scanner. High-resolution thin slice coronal and sagittal imaging was obtained from the axial source images. 3-D volumetric rendered post processing was performed as well. The patient w as examined following the uncomplicated intravenous administration of 115 cc of Omnipaque-350. The i mages were reviewed on a PACS workstation. The total exam CTDI equals 28.17, and 15.35 and the total exam DLP equals 613.96 mGy-cm. One or more of the following dose reduction techniques were used: Automated exposure control. Adjustment of the mA and/or kV according to patient size. Use of iterative reconstruction technique. COMPARISON: CT pulmonary angio 10/04/2016 FINDINGS: CT chest: There is large area of consolidation in the left lower lobe which could represent pulmonary infarct given the extent of the pulmonary emboli in the left lower lobe pulmonary artery branches. There is new small left pleural effusion. There is mild right basilar atelectasis. The mediastinum is unremarkable without evidence for mass or lymphadenopathy. The vascular structur es of the mediastinum are normal in course and caliber. The heart size is normal without pericardia l thickening or effusion. The axillary, subpectoral, and supraclavicular regions are unremarkable. Imaging obtained through the upper abdomen is equally unremarkable. The adrenal glands are symmetri yeimi normal. The surrounding chest wall is unremarkable. The osseous structures are remarkable fo r degenerative spondylosis of the spine. CT pulmonary angiogram: There has been significant interval improvement of pulmonary emboli in the right lower lobe segmenta l branches. There has been minimal improvement of left lower lobe pulmonary emboli are evident in t he medial and posterior basal segmental branches. There remains significant clot in the lower lobe pulmonary artery. There is no evidence of right heart strain. There is no evidence for pulmonary a rterial hypertension. IMPRESSION: 1. Significant interval improvement of clot burden in the right lower lobe segmental branches. 2. Minimal improvement of the clot burden in the medial and posterior basal segmental branches of t he left lower lobe. 3. Remaining significant clot in the left lower lobe pulmonary artery. 4. New large area of consolidation with surrounding ground-glass density involving the majority of the left lower lobe which could represent evolving pulmonary infarct given the extent of the pulmona ry emboli. Superimposed infection cannot be excluded. 5. New small left pleural effusion. RPTAT: BB .Avel Sheehan MD, MD Date Time Electronically viewed and signed by .Avel Sheehan MD, on 10/09/2016 10:28 .O/
[2016-10-09] MEDS: PROMETHAZINE/CODEINE 5ML CUP PO PRN ×2 (10:52→23:42)
--- NOTE | 2016-10-09 14:04 | PN ---
Date/Time of Note Date/Time of Note DATE: 10/09/16 TIME: 13:59 Assessment/Plan VTE Prophylaxis VTE Prophylaxis Intervention: LMWH Lines/Catheters IV [facility]from [facility] Urinary Cath still in place: No Assessment/Plan Chief Complaint/Hosp Course 1. Bilateral pulmonary emboli. Recurrent, S/p CT chest angiogram, on Lovenox bridge with coumadin -Continue coumadin and lovenox bridge- pt will need coumadin on discharge, he is Uninsured and follow up at [facility] -once INR therapeutic pain- then will plan for d/c -Repeat CT shows improvement of clot burden with possible evolving pulmonary infarct -We will consult pulmonology -Oncology following 2. Left lower extremity deep venous thrombosis. on lovenox + coumadin 3. acute on chronic pain 4. SIRS likely secondary to underlying pulmonary emboli with pulmonary infarct versus pneumonia -Continue Levaquin, pulmonology consult Prophylaxis: Lovenox Problems: Subjective 24 Hr Interval Summary Cardiovascular: chest pain Exam/Review of Systems Vital Signs Vitals Vital Signs Date Time Temp Pulse Resp B/P Pulse Ox O2 Delivery O2 Flow Rate FiO2 10/09/16 09:45 99.7 93 20 124/58 3 Nasal Cannula 10/09/16 07:30 3.0 Intake and Output 10/08/16 10/08/16 10/09/16 15:00 23:00 07:00 Intake Total 700 ml 3320 ml Output Total 1200 ml 3100 ml Balance -500 ml 220 ml Exam Constitutional: alert Respiratory: clear to auscultation Gastrointestinal: soft, No distended Musculoskeletal: nl extremities to inspection Results Result Diagram: 10/09/16 0433 10/09/16 0433 Results 24 hrs Laboratory Tests Test 10/09/16 04:33 White Blood Count 7.5 Red Blood Count 4.05 L Hemoglobin 10.8 L Hematocrit 32.7 L Mean Corpuscular Volume 80.7 L Mean Corpuscular Hemoglobin 26.7 L Mean Corpuscular Hemoglobin Concent 33.0 Red Cell Distribution Width 12.7 Platelet Count 256 # Mean Platelet Volume 10.1 Neutrophils % 63.9 Lymphocytes % 13.3 L Monocytes % 19.9 H Eosinophils % 2.4 Basophils % 0.1 Nucleated Red Blood Cells % 0.0 Neutrophils # 4.8 Lymphocytes # 1.0 Monocytes # 1.5 H Eosinophils # 0.2 Basophils # 0.0 Nucleated Red Blood Cells # 0.0 Prothrombin Time 14.3 H Prothrombin Time Ratio 1.1 INR International Normalized Ratio 1.11 Activated Partial Thromboplast Time 36.7 H Sodium Level 131 L Potassium Level 4.0 Chloride Level 95 L Carbon Dioxide Level 31 Anion Gap 9 Blood Urea Nitrogen 8 Creatinine 0.83 Glucose Level 113 Calcium Level 8.4 Total Bilirubin 0.4 Direct Bilirubin 0.00 Indirect Bilirubin 0.4 Aspartate Amino Transf (AST/SGOT) 47 H Alanine Aminotransferase (ALT/SGPT) 90 H Alkaline Phosphatase 170 H Total Protein 6.4 Albumin 3.1 L Globulin 3.30 H Albumin/Globulin Ratio 0.93 Medications Medications Current Medications Enoxaparin Sodium (Lovenox) 80 mg Q12 SC Last administered on 10/09/16 09:01; Admin Dose 80 MG; Start 10/04/16 at 16:35 Ondansetron HCl (Zofran Inj) 4 mg Q6H PRN IV NAUSEA AND/OR VOMITING Last administered on 10/06/16 15:14; Admin Dose 4 MG; Start 10/04/16 at 16:00 Morphine Sulfate (morphine) 4 mg Q4H PRN IV SEVERE PAIN LEVEL 7-10 Last administered on 10/06/16 02:27; Admin Dose 4 MG; Start 10/04/16 at 16:00 Magnesium Hydroxide (Milk Of Mag) 30 ml DAILY PRN PO CONSTIPATION Last administered on 10/07/16 14:32; Admin Dose 30 ML; Start 10/04/16 at 16:00 Famotidine (Pepcid) 20 mg Q12 PO Last administered on 10/09/16 09:02; Admin Dose 20 MG; Start 10/04/16 at 21:00 Acetaminophen (Tylenol Tab) 650 mg Q6H PRN PO PAIN AND OR ELEVATED TEMP Last administered on 10/09/16 09:06; Admin Dose 650 MG; Start 10/05/16 at 00:30 Metoclopramide HCl (Reglan) 10 mg Q6H PRN IV Nausea Last administered on 19:39; Admin Dose 10 MG; Start 10/06/16 at 19:30 Hydromorphone HCl (Dilaudid) 1.5 mg Q4H PRN IV PAIN Last administered on 10:52; Admin Dose 1.5 MG; Start 10/07/16 at 05:00 Levofloxacin (Levaquin) 500 mg DAILY@06 PO Last administered on 10/09/16 06:24 ; Admin Dose 500 MG; Start 10/07/16 at 13:00 Promethazine HCl/ Codeine (Phenergan/ Codeine) 5 ml Q4H PRN PO COUGH Last administered on 10/09/16 10:52; Admin Dose 5 ML; Start 10/07/16 at 13:30 Warfarin Sodium (Coumadin) 7.5 mg DAILY@17 PO Last administered on 10/08/16 18: 21; Admin Dose 7.5 MG; Start 10/08/16 at 17:00 LISA CHEUNG October 09, 2016 14:04
--- NOTE | 2016-10-09 15:18 | CONS ---
Date/Time of Note Date/Time of Note DATE: 10/09/16 TIME: 15:15 Assessment/Plan Assessment/Plan Additional Assessment/Plan CT of the chest was reviewed from start of this month which is showing bilateral lower lobe pulmonary emboli, CT chest also was reviewed from 6 of this month showing improvement in the clot burden. However left lower lobe consolidation is present likely indicating infarcted lung. Next Assessment recommendations; 1. Patient admitted with bilateral pulmonary embolism with left lower extremity DVT currently on full dose Lovenox. 2. Left lower lobe lung infarct, likely causing pleuritic chest pain as well as hemoptysis. Continue current treatment. Patient is a good candidate for either Xarelto or apixaban to be administered lifelong. Consultation Date/Type/Reason Admit Date/Time October 04, 2016 at 18:31 Date of Consultation: October 09, 2016 Type of Consultation: Pulmonary Hx of Present Illness Pulmonary consultations requested for evaluation of bilateral pulmonary embolism. Next History presenting any; patient is a very pleasant 41-year-old F Filipino male who came to the hospital on the third of this month with complaints of having shortness of breath as well as left-sided chest pain. Upon evaluation a CT of the chest was done which is showing bilateral lower lobe pulmonary emboli as well as left lower extremity DVT patient has been put on Lovenox with improvement in symptoms patient still complains of left-sided chest pain with deep breathing also complains of hemoptysis off and on but nothing like pain also complains of low-grade fever off and on. According to the patient he was fine until 2 days ago when the symptoms started. Past medical history; 1. Patient with history of PE in the past, 3 years ago, treated with 6 months of Coumadin. 2. Most of any DVT. 3. No other comorbidities. Medications; reviewed. Allergies; none. Social history; patient drinks socially. Most of any other drug abuse or any rectal abuse. Next Family history; patient is single, nausea of any clotting disorders in the family. 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 Review of systems; denies any headache, seizures. Any visual changes. Any dysphagia, odynophagia. Complains of sharp left-sided chest pain increased with deep breathing. Complains of cough with occasional hemoptysis. Denies any abdominal pain, nausea vomiting. Denies any lower extremity pain. Any edema. Any weight loss. Shortness of breath is improved significantly. Denies any syncopal episodes. General exam; young male, awake alert currently in no distress. Cardiovascular: chest pain Psychological: no complaints Past Surgical History Past Surgical Hx: no surgical history Social History Smoking Status: Current every day smoker Exam/Review of Systems Vital Signs Vitals Vital Signs Date Time Temp Pulse Resp B/P Pulse Ox O2 Delivery O2 Flow Rate FiO2 10/09/16 09:45 99.7 93 20 124/58 3 Nasal Cannula 10/09/16 07:30 3.0 Intake and Output 10/08/16 10/08/16 10/09/16 14:59 22:59 06:59 Intake Total 700 ml 3320 ml Output Total 1200 ml 3100 ml Balance -500 ml 220 ml Results Result Diagram: 10/09/16 0433 10/09/16 0433 Results 24 hrs Laboratory Tests Test 10/09/16 04:33 White Blood Count 7.5 Red Blood Count 4.05 L Hemoglobin 10.8 L Hematocrit 32.7 L Mean Corpuscular Volume 80.7 L Mean Corpuscular Hemoglobin 26.7 L Mean Corpuscular Hemoglobin Concent 33.0 Red Cell Distribution Width 12.7 Platelet Count 256 # Mean Platelet Volume 10.1 Neutrophils % 63.9 Lymphocytes % 13.3 L Monocytes % 19.9 H Eosinophils % 2.4 Basophils % 0.1 Nucleated Red Blood Cells % 0.0 Neutrophils # 4.8 Lymphocytes # 1.0 Monocytes # 1.5 H Eosinophils # 0.2 Basophils # 0.0 Nucleated Red Blood Cells # 0.0 Prothrombin Time 14.3 H Prothrombin Time Ratio 1.1 INR International Normalized Ratio 1.11 Activated Partial Thromboplast Time 36.7 H Sodium Level 131 L Potassium Level 4.0 Chloride Level 95 L Carbon Dioxide Level 31 Anion Gap 9 Blood Urea Nitrogen 8 Creatinine 0.83 Glucose Level 113 Calcium Level 8.4 Total Bilirubin 0.4 Direct Bilirubin 0.00 Indirect Bilirubin 0.4 Aspartate Amino Transf (AST/SGOT) 47 H Alanine Aminotransferase (ALT/SGPT) 90 H Alkaline Phosphatase 170 H Total Protein 6.4 Albumin 3.1 L Globulin 3.30 H Albumin/Globulin Ratio 0.93 Medications Medications Current Medications Enoxaparin Sodium (Lovenox) 80 mg Q12 SC Last administered on 10/09/16t 09:01; Admin Dose 80 MG; Start 10/04/16 at 16:35 Ondansetron HCl (Zofran Inj) 4 mg Q6H PRN IV NAUSEA AND/OR VOMITING Last administered on 10/06/16 15:14; Admin Dose 4 MG; Start 10/04/16 at 16:00 Morphine Sulfate (morphine) 4 mg Q4H PRN IV SEVERE PAIN LEVEL 7-10 Last administered on 10/06/16 02:27; Admin Dose 4 MG; Start 10/04/16 at 16:00 Magnesium Hydroxide (Milk Of Mag) 30 ml DAILY PRN PO CONSTIPATION Last administered on 10/07/16 14:32; Admin Dose 30 ML; Start 10/04/16 at 16:00 Famotidine (Pepcid) 20 mg Q12 PO Last administered on 10/09/16 09:02; Admin Dose 20 MG; Start 10/04/16 at 21:00 Acetaminophen (Tylenol Tab) 650 mg Q6H PRN PO PAIN AND OR ELEVATED TEMP Last administered on 10/09/16 09:06; Admin Dose 650 MG; Start 10/05/16 at 00:30 Metoclopramide HCl (Reglan) 10 mg Q6H PRN IV Nausea Last administered on 19:39; Admin Dose 10 MG; Start 10/06/16 at 19:30 Hydromorphone HCl (Dilaudid) 1.5 mg Q4H PRN IV PAIN Last administered on 10:52; Admin Dose 1.5 MG; Start 10/07/16 at 05:00 Levofloxacin (Levaquin) 500 mg DAILY@06 PO Last administered on 10/09/16 06:24 ; Admin Dose 500 MG; Start 10/07/16 at 13:00 Promethazine HCl/ Codeine (Phenergan/ Codeine) 5 ml Q4H PRN PO COUGH Last administered on 10/09/16 10:52; Admin Dose 5 ML; Start 10/07/16 at 13:30 Warfarin Sodium (Coumadin) 7.5 mg DAILY@17 PO Last administered on 10/08/16 18: 21; Admin Dose 7.5 MG; Start 10/08/16 at 17:00 MINDY FRAZIER October 09, 2016 15:18
--- NOTE | 2016-10-09 15:35 | CONS ---
Date/Time of Note Date/Time of Note DATE: 10/09/16 TIME: 15:32 Assessment/Plan Assessment/Plan Chief Complaint/Hosp Course The patient is a 41 year old male with: 1. Bilateral pulmonary emboli. The patient will be started on therapeutic Lovenox. Given recurrent PE, he may warrant lifelong anticoagulation. The patient denied other risks factors including any long flight, prolonged immobility or family history. The patient will be worked up for hypercoagulable disorder including protein C, protein S, antithrombin III, factor V Leiden mutation, prothrombin gene mutation and lupus anticoagulant; will also add beta2 glycoprotein IgM and IgG and anticardiolipin IgM and IGG. ATIII normal at 26, otherwise workup pending. 2. Left lower extremity deep venous thrombosis. Plan of care as per #1. - Patient on therapeutic lovenox and started on coumadin. Will need to overlap coumadin and lovenox at least 5 days and until INR > 2 for 2 days. INR currently 1.11, dose of coumadin was increased to 7.5 mg per primary team. If patient found to be negative for antiphospholipid antibody syndrome, could switch to one of the new oral anticoaulgants such as eliquis or xarelto. - Smoking cessation discussed as contributes to hypercoagulable state - patient states that he will stop entirely - Continue to monitor for worsening of hemoptysis while on anticoagulation - so far stable to improved. Monitor H/H. - Patient with ongoing fevers, likely related to clot burden, with CT 10/09/16 showing decreased clot burden but new large area of consolidation with ground glass density in LLL, ?pulm infarct vs. superimposed infection. Pt on oral levaquin as of 10/07/16. BCx, UCx negative. Appreciate pulm recs, likely infarcted lng, continue current treatment. - per primary team, pt has no insurance, so will need to go to [facility] for follow up on discharge Problems: Consultation Date/Type/Reason Admit Date/Time October 04, 2016 at 18:31 Initial Consult Date 10/05/16 Type of Consultation: Hematology 24 HR Interval Summary Free Text/Dictation The patient states that his breathing is better. He still has left sided chest pain. No change in hemoptysis. Exam/Review of Systems Vital Signs Vitals Vital Signs Date Time Temp Pulse Resp B/P Pulse Ox O2 Delivery O2 Flow Rate FiO2 10/09/16 09:45 99.7 93 20 124/58 3 Nasal Cannula 10/09/16 07:30 3.0 Intake and Output 10/08/16 10/08/16 10/09/16 15:00 23:00 07:00 Intake Total 700 ml 3320 ml Output Total 1200 ml 3100 ml Balance -500 ml 220 ml Exam Constitutional: alert, distress (mild respiratory distress on 3 L NC), oriented Head: normocephalic Eyes: nl conjunctiva Neck: supple Respiratory: clear to auscultation Cardiovascular: regular rate and rhythm Gastrointestinal: non-tender, soft Musculoskeletal: nl extremities to inspection (left calf TTP, no edema) 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 Results Result Diagram: 10/09/1643210/09/16432 Results 24 hrs Laboratory Tests Test 10/09/16 04:33 White Blood Count 7.5 Red Blood Count 4.05 L Hemoglobin 10.8 L Hematocrit 32.7 L Mean Corpuscular Volume 80.7 L Mean Corpuscular Hemoglobin 26.7 L Mean Corpuscular Hemoglobin Concent 33.0 Red Cell Distribution Width 12.7 Platelet Count 256 # Mean Platelet Volume 10.1 Neutrophils % 63.9 Lymphocytes % 13.3 L Monocytes % 19.9 H Eosinophils % 2.4 Basophils % 0.1 Nucleated Red Blood Cells % 0.0 Neutrophils # 4.8 Lymphocytes # 1.0 Monocytes # 1.5 H Eosinophils # 0.2 Basophils # 0.0 Nucleated Red Blood Cells # 0.0 Prothrombin Time 14.3 H Prothrombin Time Ratio 1.1 INR International Normalized Ratio 1.11 Activated Partial Thromboplast Time 36.7 H Sodium Level 131 L Potassium Level 4.0 Chloride Level 95 L Carbon Dioxide Level 31 Anion Gap 9 Blood Urea Nitrogen 8 Creatinine 0.83 Glucose Level 113 Calcium Level 8.4 Total Bilirubin 0.4 Direct Bilirubin 0.00 Indirect Bilirubin 0.4 Aspartate Amino Transf (AST/SGOT) 47 H Alanine Aminotransferase (ALT/SGPT) 90 H Alkaline Phosphatase 170 H Total Protein 6.4 Albumin 3.1 L Globulin 3.30 H Albumin/Globulin Ratio 0.93 Medications Medications Current Medications Enoxaparin Sodium (Lovenox) 80 mg Q12 SC Last administered on 10/09/16t 09:01; Admin Dose 80 MG; Start 10/04/16 at 16:35 Ondansetron HCl (Zofran Inj) 4 mg Q6H PRN IV NAUSEA AND/OR VOMITING Last administered on 10/06/16 15:14; Admin Dose 4 MG; Start 10/04/16 at 16:00 Morphine Sulfate (morphine) 4 mg Q4H PRN IV SEVERE PAIN LEVEL 7-10 Last administered on 10/06/16 02:27; Admin Dose 4 MG; Start 10/04/16 at 16:00 Magnesium Hydroxide (Milk Of Mag) 30 ml DAILY PRN PO CONSTIPATION Last administered on 10/07/16 14:32; Admin Dose 30 ML; Start 10/04/16 at 16:00 Famotidine (Pepcid) 20 mg Q12 PO Last administered on 10/09/16 09:02; Admin Dose 20 MG; Start 10/04/16 at 21:00 Acetaminophen (Tylenol Tab) 650 mg Q6H PRN PO PAIN AND OR ELEVATED TEMP Last administered on 10/09/16 09:06; Admin Dose 650 MG; Start 10/05/16 at 00:30 Metoclopramide HCl (Reglan) 10 mg Q6H PRN IV Nausea Last administered on 19:39; Admin Dose 10 MG; Start 10/06/16 at 19:30 Hydromorphone HCl (Dilaudid) 1.5 mg Q4H PRN IV PAIN Last administered on 10:52; Admin Dose 1.5 MG; Start 10/07/16 at 05:00 Levofloxacin (Levaquin) 500 mg DAILY@06 PO Last administered on 10/09/16 06:24 ; Admin Dose 500 MG; Start 10/07/16 at 13:00 Promethazine HCl/ Codeine (Phenergan/ Codeine) 5 ml Q4H PRN PO COUGH Last administered on 10/09/16 10:52; Admin Dose 5 ML; Start 10/07/16 at 13:30 Warfarin Sodium (Coumadin) 7.5 mg DAILY@17 PO Last administered on 10/08/16 18: 21; Admin Dose 7.5 MG; Start 10/08/16 at 17:00 CARRIE BALLARD MD October 09, 2016 15:35
[2016-10-09 17:45] VITALS: PULSE 105
[2016-10-09] MEDS: WARFARIN 7.5 MG TAB PO SCH (17:51)
[2016-10-10 05:23] LABS: ADD SCAN DIFF NO
[2016-10-10 05:31] LABS: BASOPHILS % 0.1 % (0.0-2.0); EOSINOPHILS # 0.2 10^3/ul (0.0-0.5); EOSINOPHILS % 2.6 % (0.0-7.0); HEMATOCRIT 33.5 % (42.0-52.0); HEMOGLOBIN 11.4 g/dl (14.0-18.0); LYMPHOCYTES # 1.2 10^3/ul (0.8-2.9); MEAN CORPUSCULAR HEMOGLOBIN 27.3 pg (29.0-33.0); MEAN CORPUSCULAR VOLUME 80.3 fl (82.0-101.0); MEAN PLATELET VOLUME 9.4 fl (7.4-10.4); MONOCYTE # 1.4 10^3/ul (0.3-0.9); MONOCYTES % 19.4 % (0.0-11.0); NEUTROPHIL # 4.4 10^3/ul (1.6-7.5); NEUTROPHILS % 61.3 % (39.0-77.0); PLATELET COUNT 331 10^3/UL (140-415); RED BLOOD COUNT 4.17 10^6/ul (4.70-6.10); WHITE BLOOD COUNT 7.2 10^3/ul (4.8-10.8)
[2016-10-10] MEDS: LEVOFLOXACIN 500 MG TAB PO SCH (05:52)
[2016-10-10] MEDS: ACETAMINOPHEN 325 MG TAB PO PRN ×3 (05:52→20:52)
[2016-10-10] MEDS: HYDROmorphONE 2 MG/ML SYG IV PRN ×4 (05:58→19:31)
[2016-10-10 06:10] LABS: CALCIUM 8.7 mg/dl (8.4-10.2); CREATININE 0.85 mg/dl (0.61-1.24); POTASSIUM 4.5 mmol/L (3.5-5.1)
[2016-10-10 06:18] LABS: INR 1.3; PROTIME 16.3 Sec (12.2-14.2); PT RATIO 1.3
[2016-10-10 07:47] VITALS: BP 126/76; RESP 20
[2016-10-10] MEDS: FAMOTIDINE 20 MG TAB PO SCH ×2 (09:15→20:10)
[2016-10-10] MEDS: ENOXAPARIN 80 MG/0.8 ML SYG SC SCH ×2 (09:32→20:12)
--- NOTE | 2016-10-10 11:33 | CONS ---
Date/Time of Note Date/Time of Note DATE: 10/10/16 TIME: 11:30 Assessment/Plan Assessment/Plan Chief Complaint/Hosp Course The patient is a 41 year old male with: 1. Bilateral pulmonary emboli. The patient will be started on therapeutic Lovenox. Given recurrent PE, he may warrant lifelong anticoagulation. The patient denied other risks factors including any long flight, prolonged immobility or family history. The patient will be worked up for hypercoagulable disorder including protein C, protein S, antithrombin III, factor V Leiden mutation, prothrombin gene mutation and lupus anticoagulant; will also add beta2 glycoprotein IgM and IgG and anticardiolipin IgM and IGG. ATIII normal at 26, protein C WNL, protein S low at 65 though may be due to recent thrombosis, PT gene mutation, FV Leiden gene mutations and lupus anticoagulation not detected. Pending beta2 glycoprotein and anticardiolipin.. 2. Left lower extremity deep venous thrombosis. Plan of care as per #1. - Patient on therapeutic lovenox and started on coumadin. Will need to overlap coumadin and lovenox at least 5 days and until INR > 2 for 2 days. INR currently 1.3, dose of coumadin was increased to 7.5 mg per primary team. If patient found to be negative for antiphospholipid antibody syndrome, could switch to one of the new oral anticoaulgants such as eliquis or xarelto. - Smoking cessation discussed as contributes to hypercoagulable state - patient states that he will stop entirely - Continue to monitor for worsening of hemoptysis while on anticoagulation - so far stable to improved. Monitor H/H. - Patient with ongoing fevers, likely related to clot burden, with CT 10/09/16 showing decreased clot burden but new large area of consolidation with ground glass density in LLL, ?pulm infarct vs. superimposed infection. Pt on oral levaquin as of 10/07/16. BCx, UCx negative. Appreciate pulm recs, likely infarcted lung, continue current treatment. - per primary team, pt has no insurance, so will need to go to [facility] for follow up on discharge Problems: Consultation Date/Type/Reason Admit Date/Time October 04, 2016 at 18:31 Initial Consult Date 10/05/16 Type of Consultation: Hematology 24 HR Interval Summary Free Text/Dictation Patient states that he has left chest pain, and hemoptysis, but overall his pain and breathing is much improved since admission. Exam/Review of Systems Vital Signs Vitals Vital Signs Date Time Temp Pulse Resp B/P Pulse Ox O2 Delivery O2 Flow Rate FiO2 10/10/16 07:47 98.4 86 20 126/76 98 10/09/16 20:00 Nasal Cannula 2.0 Intake and Output 10/09/16 10/09/16 10/10/16 15:00 23:00 07:00 Intake Total 1400 ml 3200 ml Output Total 2000 ml 2400 ml Balance -600 ml 800 ml Exam Constitutional: alert, distress (mild respiratory distress on 3 L NC), oriented Head: normocephalic Eyes: nl conjunctiva Neck: supple Respiratory: clear to auscultation Cardiovascular: regular rate and rhythm Gastrointestinal: non-tender, soft Musculoskeletal: nl extremities to inspection (left calf TTP, no edema) 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 Results Result Diagram: 10/10/16 0420 10/10/16 0440 Results 24 hrs Laboratory Tests Test 10/10/16 04:20 10/10/16 04:40 10/10/16 04:45 10/10/16 07:44 White Blood Count 7.2 Red Blood Count 4.17 L Hemoglobin 11.4 L Hematocrit 33.5 L Mean Corpuscular Volume 80.3 L Mean Corpuscular Hemoglobin 27.3 L Mean Corpuscular Hemoglobin Concent 34.0 Red Cell Distribution Width 13.0 Platelet Count 331 # Mean Platelet Volume 9.4 Neutrophils % 61.3 Lymphocytes % 16.0 Monocytes % 19.4 H Eosinophils % 2.6 Basophils % 0.1 Nucleated Red Blood Cells % 0.0 Neutrophils # 4.4 Lymphocytes # 1.2 Monocytes # 1.4 H Eosinophils # 0.2 Basophils # 0.0 Nucleated Red Blood Cells # 0.0 Sodium Level 136 Potassium Level 4.5 Chloride Level 96 L Carbon Dioxide Level 33 H Anion Gap 12 Blood Urea Nitrogen 9 Creatinine 0.85 Glucose Level 115 Calcium Level 8.7 Prothrombin Time 16.3 H Prothrombin Time Ratio 1.3 INR International Normalized Ratio 1.30 Lab Scanned Report REFERENCE LAB Test 10/10/16 07:46 10/10/16 07:55 Lab Scanned Report REFERENCE LAB REFERENCE LAB Medications Medications Current Medications Enoxaparin Sodium (Lovenox) 80 mg Q12 SC Last administered on 10/10/16 09:32; Admin Dose 80 MG; Start 10/04/16 at 16:35 Ondansetron HCl (Zofran Inj) 4 mg Q6H PRN IV NAUSEA AND/OR VOMITING Last administered on 10/06/16 15:14; Admin Dose 4 MG; Start 10/04/16 at 16:00 Morphine Sulfate (morphine) 4 mg Q4H PRN IV SEVERE PAIN LEVEL 7-10 Last administered on 10/06/16 02:27; Admin Dose 4 MG; Start 10/04/16 at 16:00 Magnesium Hydroxide (Milk Of Mag) 30 ml DAILY PRN PO CONSTIPATION Last administered on 10/07/16 14:32; Admin Dose 30 ML; Start 10/04/16 at 16:00 Famotidine (Pepcid) 20 mg Q12 PO Last administered on 10/10/16 09:15; Admin Dose 20 MG; Start 10/04/16 at 21:00 Acetaminophen (Tylenol Tab) 650 mg Q6H PRN PO PAIN AND OR ELEVATED TEMP Last administered on 10/10/16 05:52; Admin Dose 650 MG; Start 10/05/16 at 00:30 Metoclopramide HCl (Reglan) 10 mg Q6H PRN IV Nausea Last administered on 19:39; Admin Dose 10 MG; Start 10/06/16 at 19:30 Hydromorphone HCl (Dilaudid) 1.5 mg Q4H PRN IV PAIN Last administered on 11:18; Admin Dose 1.5 MG; Start 10/07/16 at 05:00 Levofloxacin (Levaquin) 500 mg DAILY@06 PO Last administered on 10/10/16 05:52 ; Admin Dose 500 MG; Start 10/07/16 at 13:00 Promethazine HCl/ Codeine (Phenergan/ Codeine) 5 ml Q4H PRN PO COUGH Last administered on 10/09/16 23:42; Admin Dose 5 ML; Start 10/07/16 at 13:30 Warfarin Sodium (Coumadin) 7.5 mg DAILY@17 PO Last administered on 10/09/16 17: 51; Admin Dose 7.5 MG; Start 10/08/16 at 17:00 CARRIE BALLARD MD October 10, 2016 11:32
[2016-10-10 13:38] VITALS: BP 124/64; PULSE 91; RESP 16
[2016-10-10] MEDS: PROMETHAZINE/CODEINE 5ML CUP PO PRN ×2 (13:49→20:16)
--- NOTE | 2016-10-10 13:59 | PN ---
Date/Time of Note Date/Time of Note DATE: 10/10/16 TIME: 13:56 Assessment/Plan VTE Prophylaxis VTE Prophylaxis Intervention: LMWH Lines/Catheters IV C[facility]ter Type [facility]from [facility] Saline Lock Urinary Cath still in place: No Assessment/Plan Chief Complaint/Hosp Course 1. Bilateral pulmonary emboli-Recurrent -Continue coumadin and lovenox bridge- pt will need coumadin on discharge unless he gets Medi-Diego at which point he can be started on Xarelto or Eliquis -once INR therapeutic pain- then will plan for d/c -Repeat CT shows improvement of clot burden with possible evolving pulmonary infarct, chest pain is secondary to pulmonary infarct -Neurology consultation appreciated -Hematology following 2. Left lower extremity deep venous thrombosis. on lovenox + coumadin 3. acute on chronic pain 4. SIRS likely secondary to underlying pulmonary emboli with pulmonary infarct versus pneumonia -Continue Levaquin, pulmonology consult appreciated 5. Bradycardia -check an EKG Prophylaxis: Lovenox Problems: Subjective 24 Hr Interval Summary Cardiovascular: chest pain Exam/Review of Systems Vital Signs Vitals Vital Signs Date Time Temp Pulse Resp B/P Pulse Ox O2 Delivery O2 Flow Rate FiO2 10/10/16 13:38 91 16 124/64 Nasal Cannula 2.0 10/10/16 07:47 98.4 98 Intake and Output 10/09/16 10/09/16 10/10/16 15:00 23:00 07:00 Intake Total 1400 ml 3200 ml Output Total 2000 ml 2400 ml Balance -600 ml 800 ml Exam Constitutional: alert, oriented Respiratory: clear to auscultation Cardiovascular: regular rate and rhythm Gastrointestinal: soft, No distended Musculoskeletal: nl extremities to inspection Results Result Diagram: 10/10/16 0420 10/10/16 0440 Results 24 hrs Laboratory Tests Test 10/10/16 04:20 10/10/16 04:40 10/10/16 04:45 10/10/16 07:44 White Blood Count 7.2 Red Blood Count 4.17 L Hemoglobin 11.4 L Hematocrit 33.5 L Mean Corpuscular Volume 80.3 L Mean Corpuscular Hemoglobin 27.3 L Mean Corpuscular Hemoglobin Concent 34.0 Red Cell Distribution Width 13.0 Platelet Count 331 # Mean Platelet Volume 9.4 Neutrophils % 61.3 Lymphocytes % 16.0 Monocytes % 19.4 H Eosinophils % 2.6 Basophils % 0.1 Nucleated Red Blood Cells % 0.0 Neutrophils # 4.4 Lymphocytes # 1.2 Monocytes # 1.4 H Eosinophils # 0.2 Basophils # 0.0 Nucleated Red Blood Cells # 0.0 Sodium Level 136 Potassium Level 4.5 Chloride Level 96 L Carbon Dioxide Level 33 H Anion Gap 12 Blood Urea Nitrogen 9 Creatinine 0.85 Glucose Level 115 Calcium Level 8.7 Prothrombin Time 16.3 H Prothrombin Time Ratio 1.3 INR International Normalized Ratio 1.30 Lab Scanned Report REFERENCE LAB Test 10/10/16 07:46 10/10/16 07:55 Lab Scanned Report REFERENCE LAB REFERENCE LAB Medications Medications Current Medications Enoxaparin Sodium (Lovenox) 80 mg Q12 SC Last administered on 10/10/16 09:32; Admin Dose 80 MG; Start 10/04/16 at 16:35 Ondansetron HCl (Zofran Inj) 4 mg Q6H PRN IV NAUSEA AND/OR VOMITING Last administered on 10/06/16 15:14; Admin Dose 4 MG; Start 10/04/16 at 16:00 Morphine Sulfate (morphine) 4 mg Q4H PRN IV SEVERE PAIN LEVEL 7-10 Last administered on 10/06/16 02:27; Admin Dose 4 MG; Start 10/04/16 at 16:00 Magnesium Hydroxide (Milk Of Mag) 30 ml DAILY PRN PO CONSTIPATION Last administered on 10/07/16 14:32; Admin Dose 30 ML; Start 10/04/16 at 16:00 Famotidine (Pepcid) 20 mg Q12 PO Last administered on 10/10/16 09:15; Admin Dose 20 MG; Start 10/04/16 at 21:00 Acetaminophen (Tylenol Tab) 650 mg Q6H PRN PO PAIN AND OR ELEVATED TEMP Last administered on 10/10/16 12:56; Admin Dose 650 MG; Start 10/05/16 at 00:30 Metoclopramide HCl (Reglan) 10 mg Q6H PRN IV Nausea Last administered on 19:39; Admin Dose 10 MG; Start 10/06/16 at 19:30 Hydromorphone HCl (Dilaudid) 1.5 mg Q4H PRN IV PAIN Last administered on 11:18; Admin Dose 1.5 MG; Start 10/07/16 at 05:00 Levofloxacin (Levaquin) 500 mg DAILY@06 PO Last administered on 10/10/16 05:52 ; Admin Dose 500 MG; Start 10/07/16 at 13:00 Promethazine HCl/ Codeine (Phenergan/ Codeine) 5 ml Q4H PRN PO COUGH Last administered on 10/10/16 13:49; Admin Dose 5 ML; Start 10/07/16 at 13:30 Warfarin Sodium (Coumadin) 7.5 mg DAILY@17 PO Last administered on 10/09/16 17: 51; Admin Dose 7.5 MG; Start 10/08/16 at 17:00 LISA CHEUNG October 10, 2016 13:59
[2016-10-10] MEDS: WARFARIN 7.5 MG TAB PO SCH (17:23)
[2016-10-10 19:10] VITALS: BP 119/67; RESP 20
[2016-10-11] MEDS: HYDROmorphONE 2 MG/ML SYG IV PRN ×3 (03:13→14:17)
[2016-10-11] MEDS: ACETAMINOPHEN 325 MG TAB PO PRN ×3 (03:20→20:03)
[2016-10-11] MEDS: PROMETHAZINE/CODEINE 5ML CUP PO PRN ×4 (03:20→18:16)
[2016-10-11 05:13] LABS: ADD SCAN DIFF NO
[2016-10-11 05:18] LABS: BASOPHILS % 0.1 % (0.0-2.0); EOSINOPHILS # 0.2 10^3/ul (0.0-0.5); EOSINOPHILS % 2.3 % (0.0-7.0); HEMATOCRIT 32.5 % (42.0-52.0); HEMOGLOBIN 11.1 g/dl (14.0-18.0); LYMPHOCYTES # 0.9 10^3/ul (0.8-2.9); MEAN CORPUSCULAR HEMOGLOBIN 27.3 pg (29.0-33.0); MEAN CORPUSCULAR HGB CONC 34.2 g/dl (32.0-37.0); MEAN PLATELET VOLUME 9.3 fl (7.4-10.4); MONOCYTE # 1.5 10^3/ul (0.3-0.9); MONOCYTES % 18.7 % (0.0-11.0); NEUTROPHIL # 5.3 10^3/ul (1.6-7.5); PLATELET COUNT 365 10^3/UL (140-415); RED BLOOD COUNT 4.06 10^6/ul (4.70-6.10); RED CELL DISTRIBUTION WIDTH 12.9 % (11.5-14.5); WHITE BLOOD COUNT 7.9 10^3/ul (4.8-10.8)
[2016-10-11 05:32] LABS: INR 1.48; PT RATIO 1.4
[2016-10-11 05:37] LABS: POTASSIUM 4.2 mmol/L (3.5-5.1)
[2016-10-11 05:40] LABS: CALCIUM 8.5 mg/dl (8.4-10.2); CREATININE 0.82 mg/dl (0.61-1.24)
[2016-10-11] MEDS: LEVOFLOXACIN 500 MG TAB PO SCH (05:56)
[2016-10-11 08:24] VITALS: BP 117/69; RESP 17
[2016-10-11] MEDS: ENOXAPARIN 80 MG/0.8 ML SYG SC SCH ×2 (09:53→20:06)
[2016-10-11] MEDS: FAMOTIDINE 20 MG TAB PO SCH ×2 (09:53→20:03)
--- NOTE | 2016-10-11 10:14 | RADRPT ---
Vent Rate: 85 bpm RR Interval: 0 msec AL Interval: 148 msec QRS Duration: 86 msec QT Interval: 322 msec QTC Interval: 383 msec P-R-T [place]: 61 - 47 - 54 degrees Normal sinus rhythm Minimal voltage criteria for LVH, may be normal variant Borderline ECG Electronically Signed By: Jordin Moreira [id number]
--- NOTE | 2016-10-11 13:07 | CONS ---
Date/Time of Note Date/Time of Note DATE: 10/11/16 TIME: 13:05 Assessment/Plan Assessment/Plan Chief Complaint/Hosp Course pThe patient is a 41 year old male with: 1. Bilateral pulmonary emboli. The patient will be started on therapeutic Lovenox. Given recurrent PE, he may warrant lifelong anticoagulation. The patient denied other risks factors including any long flight, prolonged immobility or family history. The patient will be worked up for hypercoagulable disorder including protein C, protein S, antithrombin III, factor V Leiden mutation, prothrombin gene mutation and lupus anticoagulant; will also add beta2 glycoprotein IgM and IgG and anticardiolipin IgM and IGG. ATIII normal at 26, protein C WNL, protein S lopw at 65 though may be due to recent thrombosis, PT gene mutation, FV Leiden gene mutations and lupus anticoagulation not detected. Pending beta2 glycoprotein and anticardiolipin.. 2. Left lower extremity deep venous thrombosis. Plan of care as per #1. - Patient on therapeutic lovenox and started on coumadin. Will need to overlap coumadin and lovenox at least 5 days and until INR > 2 for 2 days. INR currently 1.3, dose of coumadin was increased to 7.5 mg per primary team. If patient found to be negative for antiphospholipid antibody syndrome, could switch to one of the new oral anticoaulgants such as eliquis or xarelto. - Smoking cessation discussed as contributes to hypercoagulable state - patient states that he will stop entirely - Continue to monitor for worsening of hemoptysis while on anticoagulation - so far stable to improved. Monitor H/H. - Patient with ongoing fevers, likely related to clot burden, with CT 10/09/16 showing decreased clot burden but new large area of consolidation with ground glass density in LLL, ?pulm infarct vs. superimposed infection. Pt on oral levaquin as of 10/07/16. BCx, UCx negative. Appreciate pulm recs, likely infarcted lung, continue current treatment. - per primary team, pt has no insurance, so will need to go to [facility] for follow up on discharge Problems: Consultation Date/Type/Reason Admit Date/Time October 04, 2016 at 18:31 Initial Consult Date 10/05/16 Type of Consultation: Hematology 24 HR Interval Summary Free Text/Dictation Patient stable, no significant changes in breathing or hemoptysis. Exam/Review of Systems Vital Signs Vitals Vital Signs Date Time Temp Pulse Resp B/P Pulse Ox O2 Delivery O2 Flow Rate FiO2 10/11/16 08:24 98.9 80 17 117/69 99 10/11/16 07:30 Nasal Cannula 2.0 Intake and Output 10/10/16 10/10/16 10/11/16 15:00 23:00 07:00 Intake Total 2080 ml 1500 ml Output Total 1650 ml 2900 ml Balance 430 ml -1400 ml Exam Constitutional: alert, oriented Head: normocephalic ENMT: nl external ears & nose Neck: supple Respiratory: clear to auscultation Cardiovascular: regular rate and rhythm Gastrointestinal: ascites, non-tender, soft Musculoskeletal: nl extremities to inspection Results Result Diagram: 10/11/16 0455 10/11/16 0455 Results 24 hrs Laboratory Tests Test 10/11/16 04:55 White Blood Count 7.9 Red Blood Count 4.06 L Hemoglobin 11.1 L Hematocrit 32.5 L Mean Corpuscular Volume 80.0 L Mean Corpuscular Hemoglobin 27.3 L Mean Corpuscular Hemoglobin Concent 34.2 Red Cell Distribution Width 12.9 Platelet Count 365 Mean Platelet Volume 9.3 Neutrophils % 67.0 Lymphocytes % 11.0 L Monocytes % 18.7 H Eosinophils % 2.3 Basophils % 0.1 Nucleated Red Blood Cells % 0.0 Neutrophils # 5.3 Lymphocytes # 0.9 Monocytes # 1.5 H Eosinophils # 0.2 Basophils # 0.0 Nucleated Red Blood Cells # 0.0 Prothrombin Time 18.0 H Prothrombin Time Ratio 1.4 INR International Normalized Ratio 1.48 Sodium Level 135 Potassium Level 4.2 Chloride Level 94 L Carbon Dioxide Level 33 H Anion Gap 12 Blood Urea Nitrogen 8 Creatinine 0.82 Glucose Level 125 Calcium Level 8.5 Medications Medications Current Medications Enoxaparin Sodium (Lovenox) 80 mg Q12 SC Last administered on 10/11/16 09:53; Admin Dose 80 MG; Start 10/04/16 at 16:35 Ondansetron HCl (Zofran Inj) 4 mg Q6H PRN IV NAUSEA AND/OR VOMITING Last administered on 10/06/16 15:14; Admin Dose 4 MG; Start 10/04/16 at 16:00 Morphine Sulfate (morphine) 4 mg Q4H PRN IV SEVERE PAIN LEVEL 7-10 Last administered on 10/06/16 02:27; Admin Dose 4 MG; Start 10/04/16 at 16:00 Magnesium Hydroxide (Milk Of Mag) 30 ml DAILY PRN PO CONSTIPATION Last administered on 10/07/16 14:32; Admin Dose 30 ML; Start 10/04/16 at 16:00 Famotidine (Pepcid) 20 mg Q12 PO Last administered on 10/11/16 09:53; Admin Dose 20 MG; Start 10/04/16 at 21:00 Acetaminophen (Tylenol Tab) 650 mg Q6H PRN PO PAIN AND OR ELEVATED TEMP Last administered on 10/11/16 03:20; Admin Dose 650 MG; Start 10/05/16 at 00:30 Metoclopramide HCl (Reglan) 10 mg Q6H PRN IV Nausea Last administered on 19:39; Admin Dose 10 MG; Start 10/06/16 at 19:30 Hydromorphone HCl (Dilaudid) 1.5 mg Q4H PRN IV PAIN Last administered on 09:51; Admin Dose 1.5 MG; Start 10/07/16 at 05:00 Levofloxacin (Levaquin) 500 mg DAILY@06 PO Last administered on 10/11/16 05:56 ; Admin Dose 500 MG; Start 10/07/16 at 13:00 Promethazine HCl/ Codeine (Phenergan/ Codeine) 5 ml Q4H PRN PO COUGH Last administered on 10/11/16 09:55; Admin Dose 5 ML; Start 10/07/16 at 13:30 Warfarin Sodium (Coumadin) 7.5 mg DAILY@17 PO Last administered on 10/10/16 17: 23; Admin Dose 7.5 MG; Start 10/08/16 at 17:00 CARRIE BALLARD MD October 11, 2016 13:07
[2016-10-11 14:00] VITALS: PULSE 101
--- NOTE | 2016-10-11 15:55 | PN ---
Date/Time of Note Date/Time of Note DATE: 10/11/16 TIME: 15:54 Assessment/Plan VTE Prophylaxis VTE Prophylaxis Intervention: LMWH Lines/Catheters IV [facility] Saline Lock Urinary Cath still in place: No Assessment/Plan Chief Complaint/Hosp Course 1. Bilateral pulmonary emboli-Recurrent -Continue coumadin and lovenox bridge- pt will need coumadin on discharge unless he gets Medi-Diego at which point he can be started on Xarelto or Eliquis -once INR therapeutic pain- then will plan for d/c -Repeat CT shows improvement of clot burden with possible evolving pulmonary infarct, chest pain is secondary to pulmonary infarct -Neurology consultation appreciated -Hematology following 2. Left lower extremity deep venous thrombosis. on lovenox + coumadin 3. acute on chronic pain 4. SIRS likely secondary to underlying pulmonary emboli with pulmonary infarct versus pneumonia -Continue Levaquin, pulmonology consult appreciated 5. Bradycardia -check an EKG Prophylaxis: Lovenox Problems: Subjective 24 Hr Interval Summary Cardiovascular: chest pain Exam/Review of Systems Vital Signs Vitals Vital Signs Date Time Temp Pulse Resp B/P Pulse Ox O2 Delivery O2 Flow Rate FiO2 10/11/16 14:00 99.8 101 10/11/16 08:24 17 117/69 99 10/11/16 07:30 Nasal Cannula 2.0 Intake and Output 10/10/16 10/10/16 10/11/16 15:00 23:00 07:00 Intake Total 2080 ml 1500 ml Output Total 1650 ml 2900 ml Balance 430 ml -1400 ml Exam Constitutional: alert, oriented Respiratory: clear to auscultation Cardiovascular: regular rate and rhythm Gastrointestinal: soft, No distended Musculoskeletal: nl extremities to inspection Results Result Diagram: 10/11/16 0455 10/11/16 0455 Results 24 hrs Laboratory Tests Test 10/11/16 04:55 White Blood Count 7.9 Red Blood Count 4.06 L Hemoglobin 11.1 L Hematocrit 32.5 L Mean Corpuscular Volume 80.0 L Mean Corpuscular Hemoglobin 27.3 L Mean Corpuscular Hemoglobin Concent 34.2 Red Cell Distribution Width 12.9 Platelet Count 365 Mean Platelet Volume 9.3 Neutrophils % 67.0 Lymphocytes % 11.0 L Monocytes % 18.7 H Eosinophils % 2.3 Basophils % 0.1 Nucleated Red Blood Cells % 0.0 Neutrophils # 5.3 Lymphocytes # 0.9 Monocytes # 1.5 H Eosinophils # 0.2 Basophils # 0.0 Nucleated Red Blood Cells # 0.0 Prothrombin Time 18.0 H Prothrombin Time Ratio 1.4 INR International Normalized Ratio 1.48 Sodium Level 135 Potassium Level 4.2 Chloride Level 94 L Carbon Dioxide Level 33 H Anion Gap 12 Blood Urea Nitrogen 8 Creatinine 0.82 Glucose Level 125 Calcium Level 8.5 Medications Medications Current Medications Enoxaparin Sodium (Lovenox) 80 mg Q12 SC Last administered on 10/11/16 09:53; Admin Dose 80 MG; Start 10/04/16 at 16:35 Ondansetron HCl (Zofran Inj) 4 mg Q6H PRN IV NAUSEA AND/OR VOMITING Last administered on 10/06/16 15:14; Admin Dose 4 MG; Start 10/04/16 at 16:00 Morphine Sulfate (morphine) 4 mg Q4H PRN IV SEVERE PAIN LEVEL 7-10 Last administered on 10/06/16 02:27; Admin Dose 4 MG; Start 10/04/16 at 16:00 Magnesium Hydroxide (Milk Of Mag) 30 ml DAILY PRN PO CONSTIPATION Last administered on 10/07/16 14:32; Admin Dose 30 ML; Start 10/04/16 at 16:00 Famotidine (Pepcid) 20 mg Q12 PO Last administered on 10/11/16 09:53; Admin Dose 20 MG; Start 10/04/16 at 21:00 Acetaminophen (Tylenol Tab) 650 mg Q6H PRN PO PAIN AND OR ELEVATED TEMP Last administered on 10/11/16 14:17; Admin Dose 650 MG; Start 10/05/16 at 00:30 Metoclopramide HCl (Reglan) 10 mg Q6H PRN IV Nausea Last administered on 19:39; Admin Dose 10 MG; Start 10/06/16 at 19:30 Hydromorphone HCl (Dilaudid) 1.5 mg Q4H PRN IV PAIN Last administered on 14:17; Admin Dose 1.5 MG; Start 10/07/16 at 05:00 Levofloxacin (Levaquin) 500 mg DAILY@06 PO Last administered on 10/11/16 05:56 ; Admin Dose 500 MG; Start 10/07/16 at 13:00 Promethazine HCl/ Codeine (Phenergan/ Codeine) 5 ml Q4H PRN PO COUGH Last administered on 10/11/16 14:17; Admin Dose 5 ML; Start 10/07/16 at 13:30 Warfarin Sodium (Coumadin) 7.5 mg DAILY@17 PO Last administered on 10/10/16 17: 23; Admin Dose 7.5 MG; Start 10/08/16 at 17:00 LISA CHEUNG October 11, 2016 15:55
[2016-10-11] MEDS ORDERED: HYDROCODONE/APAP (5/325) TAB PO PRN (17:00)
[2016-10-11] MEDS: HYDROCODONE/APAP (10/325) TAB PO PRN (18:16)
[2016-10-11] MEDS: WARFARIN 7.5 MG TAB PO SCH (18:16)
[2016-10-11 19:52] VITALS: BP 124/65; PULSE 90; RESP 18
[2016-10-12] MEDS: HYDROmorphONE 2 MG/ML SYG IV PRN ×5 (00:09→21:50)
[2016-10-12] MEDS: PROMETHAZINE/CODEINE 5ML CUP PO PRN (00:13)
[2016-10-12 05:23] LABS: ADD SCAN DIFF NO
[2016-10-12 05:32] LABS: BASOPHILS % 0.2 % (0.0-2.0); EOSINOPHILS # 0.2 10^3/ul (0.0-0.5); EOSINOPHILS % 3.4 % (0.0-7.0); HEMATOCRIT 35.1 % (42.0-52.0); HEMOGLOBIN 11.4 g/dl (14.0-18.0); LYMPHOCYTES % 15.9 % (15.0-51.0); MEAN CORPUSCULAR HEMOGLOBIN 26.7 pg (29.0-33.0); MEAN CORPUSCULAR HGB CONC 32.5 g/dl (32.0-37.0); MEAN CORPUSCULAR VOLUME 82.2 fl (82.0-101.0); MEAN PLATELET VOLUME 9.1 fl (7.4-10.4); MONOCYTES % 16.8 % (0.0-11.0); NEUTROPHIL # 3.7 10^3/ul (1.6-7.5); NEUTROPHILS % 62.2 % (39.0-77.0); PLATELET COUNT 451 10^3/UL (140-415); RED BLOOD COUNT 4.27 10^6/ul (4.70-6.10); RED CELL DISTRIBUTION WIDTH 13.4 % (11.5-14.5)
[2016-10-12 05:44] LABS: INR 1.59; PROTIME 19.1 Sec (12.2-14.2); PT RATIO 1.5
[2016-10-12] MEDS: LEVOFLOXACIN 500 MG TAB PO SCH (05:53)
[2016-10-12 05:54] LABS: CALCIUM 8.7 mg/dl (8.4-10.2); CREATININE 0.83 mg/dl (0.61-1.24); POTASSIUM 4.4 mmol/L (3.5-5.1)
[2016-10-12 07:40] VITALS: BP 112/55; RESP 19
[2016-10-12] MEDS: FAMOTIDINE 20 MG TAB PO SCH ×2 (09:08→20:19)
[2016-10-12] MEDS: ENOXAPARIN 80 MG/0.8 ML SYG SC SCH ×2 (09:11→20:19)
--- NOTE | 2016-10-12 13:15 | CONS ---
Date/Time of Note Date/Time of Note DATE: 10/12/16 TIME: 13:13 Assessment/Plan Assessment/Plan Chief Complaint/Hosp Course The patient is a 41 year old male with: 1. Bilateral pulmonary emboli. The patient will be started on therapeutic Lovenox. Given recurrent PE, he may warrant lifelong anticoagulation. The patient denied other risks factors including any long flight, prolonged immobility or family history. The patient will be worked up for hypercoagulable disorder including protein C, protein S, antithrombin III, factor V Leiden mutation, prothrombin gene mutation and lupus anticoagulant; will also add beta2 glycoprotein IgM and IgG and anticardiolipin IgM and IGG. ATIII normal at 26, protein C WNL, protein S lopw at 65 though may be due to recent thrombosis, PT gene mutation, FV Leiden gene mutations and lupus anticoagulation not detected. Anticardiolipin negative. Pending beta2 glycoprotein. 2. Left lower extremity deep venous thrombosis. Plan of care as per #1. - Patient on therapeutic lovenox and started on coumadin. Will need to overlap coumadin and lovenox at least 5 days and until INR > 2 for 2 days. INR currently 1.59, dose of coumadin was increased to 7.5 mg per primary team. If patient found to be negative for antiphospholipid antibody syndrome, could switch to one of the new oral anticoaulgants such as eliquis or xarelto. - Smoking cessation discussed as contributes to hypercoagulable state - patient states that he will stop entirely - Continue to monitor for worsening of hemoptysis while on anticoagulation - so far stable to improved. Monitor H/H. - Patient with ongoing fevers, likely related to clot burden, with CT 10/09/16 showing decreased clot burden but new large area of consolidation with ground glass density in LLL, ?pulm infarct vs. superimposed infection. Pt on oral levaquin as of 10/07/16. BCx, UCx negative. Appreciate pulm recs, likely infarcted lung, continue current treatment. - per primary team, pt has no insurance, so will need to go to [facility] for follow up on discharge Problems: Consultation Date/Type/Reason Admit Date/Time October 04, 2016 at 18:31 Initial Consult Date 10/05/16 Type of Consultation: Hematology 24 HR Interval Summary Free Text/Dictation Patient states that he feels better today and has decreased pain. Still has difficulty taking deep breaths. Exam/Review of Systems Vital Signs Vitals Vital Signs Date Time Temp Pulse Resp B/P Pulse Ox O2 Delivery O2 Flow Rate FiO2 10/12/16 09:30 Nasal Cannula 2.0 10/12/16 07:40 98.0 92 19 112/55 100 Intake and Output 10/11/16 10/11/16 10/12/16 15:00 23:00 07:00 Intake Total 2800 ml 2500 ml Output Total 3000 ml 2300 ml Balance -200 ml 200 ml Exam Constitutional: alert, oriented Head: normocephalic ENMT: nl external ears & nose Neck: supple Respiratory: clear to auscultation Cardiovascular: regular rate and rhythm Gastrointestinal: ascites, non-tender, soft Musculoskeletal: nl extremities to inspection Results Result Diagram: 10/12/16 0448 10/12/16 0448 Results 24 hrs Laboratory Tests Test 10/12/16 04:48 White Blood Count 6.0 # Red Blood Count 4.27 L Hemoglobin 11.4 L Hematocrit 35.1 L Mean Corpuscular Volume 82.2 Mean Corpuscular Hemoglobin 26.7 L Mean Corpuscular Hemoglobin Concent 32.5 Red Cell Distribution Width 13.4 Platelet Count 451 #H Mean Platelet Volume 9.1 Neutrophils % 62.2 Lymphocytes % 15.9 Monocytes % 16.8 H Eosinophils % 3.4 Basophils % 0.2 Nucleated Red Blood Cells % 0.0 Neutrophils # 3.7 Lymphocytes # 1.0 Monocytes # 1.0 H Eosinophils # 0.2 Basophils # 0.0 Nucleated Red Blood Cells # 0.0 Prothrombin Time 19.1 H Prothrombin Time Ratio 1.5 INR International Normalized Ratio 1.59 Sodium Level 134 L Potassium Level 4.4 Chloride Level 95 L Carbon Dioxide Level 32 H Anion Gap 11 Blood Urea Nitrogen 11 Creatinine 0.83 Glucose Level 109 Calcium Level 8.7 Medications Medications Current Medications Enoxaparin Sodium (Lovenox) 80 mg Q12 SC Last administered on 10/12/16 09:11; Admin Dose 80 MG; Start 10/04/16 at 16:35 Ondansetron HCl (Zofran Inj) 4 mg Q6H PRN IV NAUSEA AND/OR VOMITING Last administered on 10/06/16 15:14; Admin Dose 4 MG; Start 10/04/16 at 16:00 Morphine Sulfate (morphine) 4 mg Q4H PRN IV SEVERE PAIN LEVEL 7-10 Last administered on 10/06/16 02:27; Admin Dose 4 MG; Start 10/04/16 at 16:00 Magnesium Hydroxide (Milk Of Mag) 30 ml DAILY PRN PO CONSTIPATION Last administered on 10/07/16 14:32; Admin Dose 30 ML; Start 10/04/16 at 16:00 Famotidine (Pepcid) 20 mg Q12 PO Last administered on 10/12/16 09:08; Admin Dose 20 MG; Start 10/04/16 at 21:00 Acetaminophen (Tylenol Tab) 650 mg Q6H PRN PO PAIN AND OR ELEVATED TEMP Last administered on 10/11/16 20:03; Admin Dose 650 MG; Start 10/05/16 at 00:30 Metoclopramide HCl (Reglan) 10 mg Q6H PRN IV Nausea Last administered on 19:39; Admin Dose 10 MG; Start 10/06/16 at 19:30 Hydromorphone HCl (Dilaudid) 1.5 mg Q4H PRN IV PAIN Last administered on 07:44; Admin Dose 1.5 MG; Start 10/07/16 at 05:00 Levofloxacin (Levaquin) 500 mg DAILY@06 PO Last administered on 10/12/16 05:53 ; Admin Dose 500 MG; Start 10/07/16 at 13:00 Promethazine HCl/ Codeine (Phenergan/ Codeine) 5 ml Q4H PRN PO COUGH Last administered on 10/12/16 00:13; Admin Dose 5 ML; Start 10/07/16 at 13:30 Warfarin Sodium (Coumadin) 7.5 mg DAILY@17 PO Last administered on 10/11/16 18 :16; Admin Dose 7.5 MG; Start 10/08/16 at 17:00 Acetaminophen/ Hydrocodone Bitart ([place] (5/325)) 1 tab Q4H PRN PO PAIN; Start 10/11/16 at 17:00 Acetaminophen/ Hydrocodone Bitart ([place] (10/325)) 1 tab Q4H PRN PO SEVERE PAIN LEVEL 7-10 Last administered on 10/11/16 18:16; Admin Dose 1 TAB; Start at 17:00 TO,CARRIE Dueñas MD October 12, 2016 13:15
--- NOTE | 2016-10-12 14:35 | PN ---
Date/Time of Note Date/Time of Note DATE: 10/12/16 TIME: 14:34 Assessment/Plan VTE Prophylaxis VTE Prophylaxis Intervention: LMWH Lines/Catheters IV [facility]ter Type (from [facility]): Saline Lock Urinary Cath still in place: No Assessment/Plan Chief Complaint/Hosp Course 1. Bilateral pulmonary emboli-Recurrent -Continue coumadin and lovenox bridge- pt will need coumadin on discharge unless he gets Medi-Diego at which point he can be started on Xarelto or Eliquis -once INR therapeutic pain- then will plan for d/c -Repeat CT shows improvement of clot burden with possible evolving pulmonary infarct, chest pain is secondary to pulmonary infarct -Neurology consultation appreciated -Hematology following 2. Left lower extremity deep venous thrombosis. on lovenox + coumadin 3. acute on chronic pain 4. SIRS likely secondary to underlying pulmonary emboli with pulmonary infarct versus pneumonia -Continue Levaquin, pulmonology consult appreciated 5. Bradycardia -check an EKG Prophylaxis: Lovenox Problems: Subjective 24 Hr Interval Summary Constitutional: no complaints Exam/Review of Systems Vital Signs Vitals Vital Signs Date Time Temp Pulse Resp B/P Pulse Ox O2 Delivery O2 Flow Rate FiO2 10/12/16 09:30 Nasal Cannula 2.0 10/12/16 07:40 98.0 92 19 112/55 100 Intake and Output 10/11/16 10/11/16 10/12/16 15:00 23:00 07:00 Intake Total 2800 ml 2500 ml Output Total 3000 ml 2300 ml Balance -200 ml 200 ml Exam Constitutional: alert, oriented Respiratory: clear to auscultation Cardiovascular: regular rate and rhythm Gastrointestinal: soft, No distended Musculoskeletal: nl extremities to inspection Results Result Diagram: 10/12/16 0448 10/12/16 0448 Results 24 hrs Laboratory Tests Test 10/12/16 04:48 White Blood Count 6.0 # Red Blood Count 4.27 L Hemoglobin 11.4 L Hematocrit 35.1 L Mean Corpuscular Volume 82.2 Mean Corpuscular Hemoglobin 26.7 L Mean Corpuscular Hemoglobin Concent 32.5 Red Cell Distribution Width 13.4 Platelet Count 451 #H Mean Platelet Volume 9.1 Neutrophils % 62.2 Lymphocytes % 15.9 Monocytes % 16.8 H Eosinophils % 3.4 Basophils % 0.2 Nucleated Red Blood Cells % 0.0 Neutrophils # 3.7 Lymphocytes # 1.0 Monocytes # 1.0 H Eosinophils # 0.2 Basophils # 0.0 Nucleated Red Blood Cells # 0.0 Prothrombin Time 19.1 H Prothrombin Time Ratio 1.5 INR International Normalized Ratio 1.59 Sodium Level 134 L Potassium Level 4.4 Chloride Level 95 L Carbon Dioxide Level 32 H Anion Gap 11 Blood Urea Nitrogen 11 Creatinine 0.83 Glucose Level 109 Calcium Level 8.7 Medications Medications Current Medications Enoxaparin Sodium (Lovenox) 80 mg Q12 SC Last administered on 10/12/16 09:11; Admin Dose 80 MG; Start 10/04/16 at 16:35 Ondansetron HCl (Zofran Inj) 4 mg Q6H PRN IV NAUSEA AND/OR VOMITING Last administered on 10/06/16 15:14; Admin Dose 4 MG; Start 10/04/16 at 16:00 Morphine Sulfate (morphine) 4 mg Q4H PRN IV SEVERE PAIN LEVEL 7-10 Last administered on 10/06/16 02:27; Admin Dose 4 MG; Start 10/04/16 at 16:00 Magnesium Hydroxide (Milk Of Mag) 30 ml DAILY PRN PO CONSTIPATION Last administered on 10/07/16 14:32; Admin Dose 30 ML; Start 10/04/16 at 16:00 Famotidine (Pepcid) 20 mg Q12 PO Last administered on 10/12/16 09:08; Admin Dose 20 MG; Start 10/04/16 at 21:00 Acetaminophen (Tylenol Tab) 650 mg Q6H PRN PO PAIN AND OR ELEVATED TEMP Last administered on 10/11/16 20:03; Admin Dose 650 MG; Start 10/05/16 at 00:30 Metoclopramide HCl (Reglan) 10 mg Q6H PRN IV Nausea Last administered on 19:39; Admin Dose 10 MG; Start 10/06/16 at 19:30 Hydromorphone HCl (Dilaudid) 1.5 mg Q4H PRN IV PAIN Last administered on 13:45; Admin Dose 1.5 MG; Start 10/07/16 at 05:00 Levofloxacin (Levaquin) 500 mg DAILY@06 PO Last administered on 10/12/16 05:53 ; Admin Dose 500 MG; Start 5/6/17 at 13:00 Promethazine HCl/ Codeine (Phenergan/ Codeine) 5 ml Q4H PRN PO COUGH Last administered on 10/12/16 00:13; Admin Dose 5 ML; Start 10/07/16 at 13:30 Warfarin Sodium (Coumadin) 7.5 mg DAILY@17 PO Last administered on 10/11/16 18 :16; Admin Dose 7.5 MG; Start 10/08/16 at 17:00 Acetaminophen/ Hydrocodone Bitart ([place] (5/325)) 1 tab Q4H PRN PO PAIN; Start 10/11/16 at 17:00 Acetaminophen/ Hydrocodone Bitart ([place] (10/325)) 1 tab Q4H PRN PO SEVERE PAIN LEVEL 7-10 Last administered on 10/11/16 18:16; Admin Dose 1 TAB; Start at 17:00 LISA CHEUNG October 12, 2016 14:35
[2016-10-12] MEDS: WARFARIN 7.5 MG TAB PO SCH (17:07)
[2016-10-12 19:00] VITALS: BP 123/75; RESP 18
[2016-10-12] MEDS: HYDROCODONE/APAP (10/325) TAB PO PRN (19:25)
[2016-10-13] MEDS: HYDROmorphONE 2 MG/ML SYG IV PRN ×5 (02:58→22:09)
[2016-10-13] MEDS: PROMETHAZINE/CODEINE 5ML CUP PO PRN ×2 (05:03→10:40)
[2016-10-13] MEDS: LEVOFLOXACIN 500 MG TAB PO SCH (05:26)
[2016-10-13] MEDS: HYDROCODONE/APAP (10/325) TAB PO PRN ×2 (05:26→19:42)
[2016-10-13 05:48] LABS: ADD SCAN DIFF NO
[2016-10-13 05:57] LABS: BASOPHILS % 0.4 % (0.0-2.0); EOSINOPHILS # 0.2 10^3/ul (0.0-0.5); EOSINOPHILS % 2.6 % (0.0-7.0); HEMATOCRIT 34.4 % (42.0-52.0); HEMOGLOBIN 11.5 g/dl (14.0-18.0); LYMPHOCYTES # 0.9 10^3/ul (0.8-2.9); LYMPHOCYTES % 12.6 % (15.0-51.0); MEAN CORPUSCULAR HGB CONC 33.4 g/dl (32.0-37.0); MEAN CORPUSCULAR VOLUME 80.8 fl (82.0-101.0); MEAN PLATELET VOLUME 9.4 fl (7.4-10.4); MONOCYTES % 14.3 % (0.0-11.0); NEUTROPHIL # 4.9 10^3/ul (1.6-7.5); NEUTROPHILS % 68.2 % (39.0-77.0); PLATELET COUNT 478 10^3/UL (140-415); RED BLOOD COUNT 4.26 10^6/ul (4.70-6.10); RED CELL DISTRIBUTION WIDTH 13.2 % (11.5-14.5); WHITE BLOOD COUNT 7.2 10^3/ul (4.8-10.8)
[2016-10-13 06:03] LABS: CALCIUM 8.8 mg/dl (8.4-10.2); CREATININE 0.76 mg/dl (0.61-1.24); POTASSIUM 4.5 mmol/L (3.5-5.1)
[2016-10-13 06:13] LABS: INR 1.84; PROTIME 21.4 Sec (12.2-14.2); PT RATIO 1.7
[2016-10-13 07:29] VITALS: BP 129/58; RESP 19
[2016-10-13 07:33] VITALS: BP 145/65; RESP 19
[2016-10-13] MEDS: FAMOTIDINE 20 MG TAB PO SCH ×2 (08:53→20:17)
[2016-10-13] MEDS: ENOXAPARIN 80 MG/0.8 ML SYG SC SCH ×2 (09:05→20:20)
--- NOTE | 2016-10-13 09:11 | CONS ---
Date/Time of Note Date/Time of Note DATE: 10/13/16 TIME: 09:10 Assessment/Plan Assessment/Plan Chief Complaint/Hosp Course The patient is a 41 year old male with: 1. Bilateral pulmonary emboli. The patient will be started on therapeutic Lovenox. Given recurrent PE, he may warrant lifelong anticoagulation. The patient denied other risks factors including any long flight, prolonged immobility or family history. The patient will be worked up for hypercoagulable disorder including protein C, protein S, antithrombin III, factor V Leiden mutation, prothrombin gene mutation and lupus anticoagulant; will also add beta2 glycoprotein IgM and IgG and anticardiolipin IgM and IGG. ATIII normal at 26, protein C WNL, protein S lopw at 65 though may be due to recent thrombosis, PT gene mutation, FV Leiden gene mutations and lupus anticoagulation not detected. Anticardiolipin negative. Pending beta2 glycoprotein. 2. Left lower extremity deep venous thrombosis. Plan of care as per #1. - Patient on therapeutic lovenox and started on coumadin. Will need to overlap coumadin and lovenox at least 5 days and until INR > 2 for 2 days. INR currently 1.84, dose of coumadin was increased to 7.5 mg per primary team. If patient found to be negative for antiphospholipid antibody syndrome, could switch to one of the new oral anticoaulgants such as eliquis or xarelto. - Smoking cessation discussed as contributes to hypercoagulable state - patient states that he will stop entirely - Continue to monitor for worsening of hemoptysis while on anticoagulation - so far stable to improved. Monitor H/H. - Patient with ongoing fevers though fever curve improving (Tm 100.1) likely related to clot burden, with CT 10/09/16 showing decreased clot burden but new large area of consolidation with ground glass density in LLL, ?pulm infarct vs. superimposed infection. Pt on oral levaquin as of 10/07/16. BCx, UCx negative. Appreciate pulm recs, likely infarcted lung, continue current treatment. - per primary team, pt has no insurance, so will need to go to [facility] for follow up on discharge however pt pending medical - mild thrombocytosis noted, likely reactive. Will check ESR and CRP. Continue to monitor. Patient already on therapeutic anticoagulation. Problems: Consultation Date/Type/Reason Admit Date/Time October 04, 2016 at 18:31 Initial Consult Date 10/05/16 Type of Consultation: Hematology 24 HR Interval Summary Free Text/Dictation Patient feels well today and states that he can finally take deep breaths. Exam/Review of Systems Vital Signs Vitals Vital Signs Date Time Temp Pulse Resp B/P Pulse Ox O2 Delivery O2 Flow Rate FiO2 10/13/16 07:33 97.0 63 19 145/65 98 10/12/16 20:30 Nasal Cannula 10/12/16 09:30 2.0 Intake and Output 10/12/16 10/12/16 10/13/16 15:00 23:00 07:00 Intake Total 910 ml 850 ml Output Total 800 ml 1500 ml Balance 110 ml -650 ml Exam Constitutional: alert, oriented Head: normocephalic ENMT: nl external ears & nose Neck: supple Respiratory: clear to auscultation Cardiovascular: regular rate and rhythm Gastrointestinal: ascites, non-tender, soft Musculoskeletal: nl extremities to inspection Results Result Diagram: 10/13/16 0500 10/13/16 0500 Results 24 hrs Laboratory Tests Test 10/13/16 05:00 White Blood Count 7.2 Red Blood Count 4.26 L Hemoglobin 11.5 L Hematocrit 34.4 L Mean Corpuscular Volume 80.8 L Mean Corpuscular Hemoglobin 27.0 L Mean Corpuscular Hemoglobin Concent 33.4 Red Cell Distribution Width 13.2 Platelet Count 478 H Mean Platelet Volume 9.4 Neutrophils % 68.2 Lymphocytes % 12.6 L Monocytes % 14.3 H Eosinophils % 2.6 Basophils % 0.4 Nucleated Red Blood Cells % 0.0 Neutrophils # 4.9 Lymphocytes # 0.9 Monocytes # 1.0 H Eosinophils # 0.2 Basophils # 0.0 Nucleated Red Blood Cells # 0.0 Prothrombin Time 21.4 H Prothrombin Time Ratio 1.7 INR International Normalized Ratio 1.84 Sodium Level 132 L Potassium Level 4.5 Chloride Level 95 L Carbon Dioxide Level 29 Anion Gap 13 Blood Urea Nitrogen 9 Creatinine 0.76 Glucose Level 149 # Calcium Level 8.8 Medications Medications Current Medications Enoxaparin Sodium (Lovenox) 80 mg Q12 SC Last administered on 10/13/16t 09:05; Admin Dose 80 MG; Start 10/04/16 at 16:35 Ondansetron HCl (Zofran Inj) 4 mg Q6H PRN IV NAUSEA AND/OR VOMITING Last administered on 10/06/16 15:14; Admin Dose 4 MG; Start 10/04/16 at 16:00 Morphine Sulfate (morphine) 4 mg Q4H PRN IV SEVERE PAIN LEVEL 7-10 Last administered on 10/06/16 02:27; Admin Dose 4 MG; Start 10/04/16 at 16:00 Magnesium Hydroxide (Milk Of Mag) 30 ml DAILY PRN PO CONSTIPATION Last administered on 10/07/16 14:32; Admin Dose 30 ML; Start 10/04/16 at 16:00 Famotidine (Pepcid) 20 mg Q12 PO Last administered on 10/13/16 08:53; Admin Dose 20 MG; Start 10/04/16 at 21:00 Acetaminophen (Tylenol Tab) 650 mg Q6H PRN PO PAIN AND OR ELEVATED TEMP Last administered on 10/11/16 20:03; Admin Dose 650 MG; Start 10/05/16 at 00:30 Metoclopramide HCl (Reglan) 10 mg Q6H PRN IV Nausea Last administered on 19:39; Admin Dose 10 MG; Start 10/06/16 at 19:30 Hydromorphone HCl (Dilaudid) 1.5 mg Q4H PRN IV PAIN Last administered on 08:53; Admin Dose 1.5 MG; Start 10/07/16 at 05:00 Levofloxacin (Levaquin) 500 mg DAILY@06 PO Last administered on 10/13/16 05:26 ; Admin Dose 500 MG; Start 10/07/16 at 13:00 Promethazine HCl/ Codeine (Phenergan/ Codeine) 5 ml Q4H PRN PO COUGH Last administered on 10/13/16 05:03; Admin Dose 5 ML; Start 10/07/16 at 13:30 Warfarin Sodium (Coumadin) 7.5 mg DAILY@17 PO Last administered on 10/12/16 17 :07; Admin Dose 7.5 MG; Start 10/08/16 at 17:00 Acetaminophen/ Hydrocodone Bitart ([place] (5/325)) 1 tab Q4H PRN PO PAIN; Start 10/11/16 at 17:00 Acetaminophen/ Hydrocodone Bitart ([place] (10/325)) 1 tab Q4H PRN PO SEVERE PAIN LEVEL 7-10 Last administered on 10/13/16t 05:26; Admin Dose 1 TAB; Start at 17:00 TOCARRIE MD October 13, 2016 09:11
[2016-10-13 12:37] LABS: B2 GLYCOPROTEIN I AB (IGA) <9 SAU (< OR = 20); B2 GLYCOPROTEIN I AB (IGG) <9 SGU (< OR = 20); B2 GLYCOPROTEIN I AB (IGM) <9 SMU (< OR = 20)
--- NOTE | 2016-10-13 16:14 | PN ---
Date/Time of Note Date/Time of Note DATE: 10/13/16 TIME: 16:13 Assessment/Plan VTE Prophylaxis VTE Prophylaxis Intervention: LMWH Lines/Catheters IV [facility] Saline Lock Urinary Cath still in place: No Assessment/Plan Chief Complaint/Hosp Course 1. Bilateral pulmonary emboli-Recurrent -Continue coumadin and lovenox bridge- pt will need coumadin on discharge unless he gets Medi-Diego at which point he can be started on Xarelto or Eliquis -once INR therapeutic pain or could obtain Xarelto/Eliquis- then will plan for d /c -Repeat CT shows improvement of clot burden with possible evolving pulmonary infarct, chest pain is secondary to pulmonary infarct -Neurology consultation appreciated -Hematology following 2. Left lower extremity deep venous thrombosis. on lovenox + coumadin 3. acute on chronic pain 4. SIRS likely secondary to underlying pulmonary emboli with pulmonary infarct versus pneumonia -Continue Levaquin, pulmonology consult appreciated 5. Bradycardia -check an EKG Prophylaxis: Lovenox Problems: Subjective 24 Hr Interval Summary Constitutional: no complaints Exam/Review of Systems Vital Signs Vitals Vital Signs Date Time Temp Pulse Resp B/P Pulse Ox O2 Delivery O2 Flow Rate FiO2 10/13/16 09:48 Nasal Cannula 2.0 10/13/16 07:33 97.0 63 19 145/65 98 Intake and Output 10/12/16 10/12/16 10/13/16 15:00 23:00 07:00 Intake Total 910 ml 850 ml Output Total 800 ml 1500 ml Balance 110 ml -650 ml Exam Constitutional: alert, oriented Respiratory: clear to auscultation Cardiovascular: regular rate and rhythm Gastrointestinal: soft, No distended Musculoskeletal: nl extremities to inspection Results Result Diagram: 10/13/16 0500 10/13/16 0500 Results 24 hrs Laboratory Tests Test 10/13/16 05:00 White Blood Count 7.2 Red Blood Count 4.26 L Hemoglobin 11.5 L Hematocrit 34.4 L Mean Corpuscular Volume 80.8 L Mean Corpuscular Hemoglobin 27.0 L Mean Corpuscular Hemoglobin Concent 33.4 Red Cell Distribution Width 13.2 Platelet Count 478 H Mean Platelet Volume 9.4 Neutrophils % 68.2 Lymphocytes % 12.6 L Monocytes % 14.3 H Eosinophils % 2.6 Basophils % 0.4 Nucleated Red Blood Cells % 0.0 Neutrophils # 4.9 Lymphocytes # 0.9 Monocytes # 1.0 H Eosinophils # 0.2 Basophils # 0.0 Nucleated Red Blood Cells # 0.0 Prothrombin Time 21.4 H Prothrombin Time Ratio 1.7 INR International Normalized Ratio 1.84 Sodium Level 132 L Potassium Level 4.5 Chloride Level 95 L Carbon Dioxide Level 29 Anion Gap 13 Blood Urea Nitrogen 9 Creatinine 0.76 Glucose Level 149 # Calcium Level 8.8 Medications Medications Current Medications Enoxaparin Sodium (Lovenox) 80 mg Q12 SC Last administered on 10/13/16 09:05; Admin Dose 80 MG; Start 10/04/16 at 16:35 Ondansetron HCl (Zofran Inj) 4 mg Q6H PRN IV NAUSEA AND/OR VOMITING Last administered on 10/06/16 15:14; Admin Dose 4 MG; Start 10/04/16 at 16:00 Morphine Sulfate (morphine) 4 mg Q4H PRN IV SEVERE PAIN LEVEL 7-10 Last administered on 10/06/16 02:27; Admin Dose 4 MG; Start 10/04/16 at 16:00 Magnesium Hydroxide (Milk Of Mag) 30 ml DAILY PRN PO CONSTIPATION Last administered on 10/07/16 14:32; Admin Dose 30 ML; Start 10/04/16 at 16:00 Famotidine (Pepcid) 20 mg Q12 PO Last administered on 10/13/16 08:53; Admin Dose 20 MG; Start 10/04/16 at 21:00 Acetaminophen (Tylenol Tab) 650 mg Q6H PRN PO PAIN AND OR ELEVATED TEMP Last administered on 10/11/16 20:03; Admin Dose 650 MG; Start 10/05/16 at 00:30 Metoclopramide HCl (Reglan) 10 mg Q6H PRN IV Nausea Last administered on 19:39; Admin Dose 10 MG; Start 10/06/16 at 19:30 Hydromorphone HCl (Dilaudid) 1.5 mg Q4H PRN IV PAIN Last administered on 13:14; Admin Dose 1.5 MG; Start 10/07/16 at 05:00 Levofloxacin (Levaquin) 500 mg DAILY@06 PO Last administered on 10/13/16 05:26 ; Admin Dose 500 MG; Start 10/07/16 at 13:00 Promethazine HCl/ Codeine (Phenergan/ Codeine) 5 ml Q4H PRN PO COUGH Last administered on 10/13/16 10:40; Admin Dose 5 ML; Start 10/07/16 at 13:30 Warfarin Sodium (Coumadin) 7.5 mg DAILY@17 PO Last administered on 10/12/16 17 :07; Admin Dose 7.5 MG; Start 10/08/16 at 17:00 Acetaminophen/ Hydrocodone Bitart ([place] (5/325)) 1 tab Q4H PRN PO PAIN; Start 10/11/16 at 17:00 Acetaminophen/ Hydrocodone Bitart ([place] (10/325)) 1 tab Q4H PRN PO SEVERE PAIN LEVEL 7-10 Last administered on 10/13/16 05:26; Admin Dose 1 TAB; Start at 17:00 LISA CHEUNG October 13, 2016 16:14
[2016-10-13] MEDS: WARFARIN 7.5 MG TAB PO SCH (16:46)
[2016-10-13 19:00] VITALS: BP 122/71; RESP 18
[2016-10-14] MEDS: HYDROmorphONE 2 MG/ML SYG IV PRN ×5 (02:41→20:19)
[2016-10-14 05:38] LABS: INR 1.95; PROTIME 22.4 Sec (12.2-14.2); PT RATIO 1.8
[2016-10-14] MEDS: LEVOFLOXACIN 500 MG TAB PO SCH (05:53)
[2016-10-14] MEDS: HYDROCODONE/APAP (10/325) TAB PO PRN ×2 (05:53→18:48)
[2016-10-14 07:24] VITALS: BP 108/66; RESP 19
[2016-10-14] MEDS: FAMOTIDINE 20 MG TAB PO SCH ×2 (09:16→20:18)
[2016-10-14] MEDS: ENOXAPARIN 80 MG/0.8 ML SYG SC SCH (09:19)
--- NOTE | 2016-10-14 12:04 | CONS ---
Date/Time of Note Date/Time of Note DATE: 10/14/16 TIME: 12:01 Assessment/Plan Assessment/Plan Chief Complaint/Hosp Course The patient is a 41 year old male with: 1. Bilateral pulmonary emboli. The patient will be started on therapeutic Lovenox. Given recurrent PE, he may warrant lifelong anticoagulation. The patient denied other risks factors including any long flight, prolonged immobility or family history. The patient will be worked up for hypercoagulable disorder including protein C, protein S, antithrombin III, factor V Leiden mutation, prothrombin gene mutation and lupus anticoagulant; will also add beta2 glycoprotein IgM and IgG and anticardiolipin IgM and IGG. ATIII normal at 26, protein C WNL, protein S low at 65 though may be due to recent thrombosis, PT gene mutation, FV Leiden gene mutations and lupus anticoagulation not detected. Anticardiolipin negative. Pending beta2 glycoprotein. 2. Left lower extremity deep venous thrombosis. Plan of care as per #1. - Patient on therapeutic lovenox and started on coumadin. Will need to overlap coumadin and lovenox at least 5 days and until INR > 2 for 2 days. INR currently 1.95, dose of coumadin was increased to 7.5 mg per primary team. If patient found to be negative for antiphospholipid antibody syndrome, could switch to one of the new oral anticoagulants such as eliquis or xarelto. - Smoking cessation discussed as contributes to hypercoagulable state - patient states that he will stop entirely - Continue to monitor for worsening of hemoptysis while on anticoagulation - so far stable to improved. Monitor H/H. - Patient with ongoing fevers though fever curve improving (Tm 100.1) likely related to clot burden, with CT 10/09/16 showing decreased clot burden but new large area of consolidation with ground glass density in LLL, ?pulm infarct vs. superimposed infection. Pt on oral levaquin as of 10/07/16. BCx, UCx negative. Appreciate pulm recs, likely infarcted lung, continue current treatment. - per primary team, pt has no insurance, so will need to go to [facility] for follow up on discharge however pt pending medical - mild thrombocytosis noted, likely reactive. Will check ESR and CRP. Continue to monitor. Patient already on therapeutic anticoagulation. Problems: Consultation Date/Type/Reason Admit Date/Time October 04, 2016 at 18:31 Initial Consult Date 10/09/16 Type of Consultation: Hematology Reason for Consultation PE Referring Provider: FIDELINA BUSTILLO 24 HR Interval Summary Free Text/Dictation still with hemoptysis from pulmonary infarct Exam/Review of Systems Vital Signs Vitals Vital Signs Date Time Temp Pulse Resp B/P Pulse Ox O2 Delivery O2 Flow Rate FiO2 10/14/16 09:50 Nasal Cannula 10/14/16 07:24 98.0 88 19 108/66 98 10/13/16 20:30 2.0 Intake and Output 10/13/16 10/13/16 10/14/16 15:00 23:00 07:00 Intake Total 1920 ml 2200 ml Output Total 1600 ml 2000 ml Balance 320 ml 200 ml Exam Constitutional: alert, oriented Psych: no complaints Head: atraumatic, normocephalic Eyes: nl conjunctiva ENMT: nl external ears & nose Neck: non-tender, supple Respiratory: clear to auscultation, normal air movement Cardiovascular: regular rate and rhythm Gastrointestinal: soft Musculoskeletal: nl extremities to inspection, nl gait and stance Extremities: normal pulses Results Result Diagram: 10/13/16 0500 10/13/16 0500 Results 24 hrs Laboratory Tests Test 10/14/16 04:21 Erythrocyte Sedimentation Rate 120.0 H Prothrombin Time 22.4 H Prothrombin Time Ratio 1.8 INR International Normalized Ratio 1.95 C-Reactive Protein 26.9 H Medications Medications Current Medications Enoxaparin Sodium (Lovenox) 80 mg Q12 SC Last administered on 10/14/16 09:19; Admin Dose 80 MG; Start 10/04/16 at 16:35 Ondansetron HCl (Zofran Inj) 4 mg Q6H PRN IV NAUSEA AND/OR VOMITING Last administered on 10/06/16 15:14; Admin Dose 4 MG; Start 10/04/16 at 16:00 Morphine Sulfate (morphine) 4 mg Q4H PRN IV SEVERE PAIN LEVEL 7-10 Last administered on 10/06/16 02:27; Admin Dose 4 MG; Start 10/04/16 at 16:00 Magnesium Hydroxide (Milk Of Mag) 30 ml DAILY PRN PO CONSTIPATION Last administered on 10/07/16 14:32; Admin Dose 30 ML; Start 10/04/16 at 16:00 Famotidine (Pepcid) 20 mg Q12 PO Last administered on 10/14/16 09:16; Admin Dose 20 MG; Start 10/04/16 at 21:00 Acetaminophen (Tylenol Tab) 650 mg Q6H PRN PO PAIN AND OR ELEVATED TEMP Last administered on 10/11/16 20:03; Admin Dose 650 MG; Start 10/05/16 at 00:30 Metoclopramide HCl (Reglan) 10 mg Q6H PRN IV Nausea Last administered on 19:39; Admin Dose 10 MG; Start 10/06/16 at 19:30 Hydromorphone HCl (Dilaudid) 1.5 mg Q4H PRN IV PAIN Last administered on 11:58; Admin Dose 1.5 MG; Start 10/07/16 at 05:00 Levofloxacin (Levaquin) 500 mg DAILY@06 PO Last administered on 10/14/16 05:53 ; Admin Dose 500 MG; Start 10/07/16 at 13:00 Promethazine HCl/ Codeine (Phenergan/ Codeine) 5 ml Q4H PRN PO COUGH Last administered on 10/13/16 10:40; Admin Dose 5 ML; Start 10/07/16 at 13:30 Warfarin Sodium (Coumadin) 7.5 mg DAILY@17 PO Last administered on 10/13/16 16 :46; Admin Dose 7.5 MG; Start 10/08/16 at 17:00 Acetaminophen/ Hydrocodone Bitart ([place] (5/325)) 1 tab Q4H PRN PO PAIN; Start 10/11/16 at 17:00 Acetaminophen/ Hydrocodone Bitart ([place] (10/325)) 1 tab Q4H PRN PO SEVERE PAIN LEVEL 7-10 Last administered on 10/14/16 05:53; Admin Dose 1 TAB; Start at 17:00 JAH ALANIZ M.D. October 14, 2016 12:04
[2016-10-14] MEDS ORDERED: APIX5TAB PO (14:11)
--- NOTE | 2016-10-14 14:15 | PDOCDIS ---
Discharge Instructions CONDITION Patient Condition: Good HOME CARE INSTRUCTIONS: Diet Instructions: RegularSpecial Diet: N/A ACTIVITY: Activity Restrictions: No Restrictions FOLLOW UP/APPOINTMENTS Appointments F/U WITH A PCP IN 1-2 WEEKS, ALSO F/U WITH A CASK MAKER REFERRALS Agency Name and Phone Number: [place] [facility] [phone] LISA CHEUNG October 14, 2016 14:15
--- NOTE | 2016-10-14 14:22 | PN ---
Date/Time of Note Date/Time of Note DATE: 10/14/16 TIME: 14:16 Assessment/Plan VTE Prophylaxis VTE Prophylaxis Intervention: other Lines/Catheters [facility] Saline Lock Urinary Cath still in place: No Assessment/Plan Chief Complaint/Hosp Course 1. Bilateral pulmonary emboli-Recurrent -DC Coumadin and lovenox, will start Eliquis this evening -Patient now has Medi-Diego will DC with Eliquis, antiphospholipid syndrome workup is negative and per hematology Eliquis or Xarelto is adequate for anticoagulation -Repeat CT shows improvement of clot burden with possible evolving pulmonary infarct, chest pain is secondary to pulmonary infarct -Pulmonology consultation appreciated -Hematology following 2. Left lower extremity deep venous thrombosis. on lovenox + coumadin -DC with Eliquis 3. acute on chronic pain 4. SIRS likely secondary to underlying pulmonary emboli with pulmonary infarct versus pneumonia -DC Levaquin as he is now status post 8 days of this treatment 5. Bradycardia-resolved -EKG is stable Prophylaxis:Eliquis Discharge planning-DC tomorrow Problems: Subjective 24 Hr Interval Summary Constitutional: no complaints Exam/Review of Systems Vital Signs Vitals Vital Signs Date Time Temp Pulse Resp B/P Pulse Ox O2 Delivery O2 Flow Rate FiO2 10/14/16 09:50 Nasal Cannula 10/14/16 07:24 98.0 88 19 108/66 98 10/13/16 20:30 2.0 Intake and Output 10/13/16 10/13/16 10/14/16 15:00 23:00 07:00 Intake Total 1920 ml 2200 ml Output Total 1600 ml 2000 ml Balance 320 ml 200 ml Exam Constitutional: alert Respiratory: diminished breath sounds (L SIDE ) Cardiovascular: regular rate and rhythm Gastrointestinal: soft, No distended Musculoskeletal: nl extremities to inspection Results Result Diagram: 10/13/16 0500 10/13/16 0500 Results 24 hrs Laboratory Tests Test 10/14/16 04:21 Erythrocyte Sedimentation Rate 120.0 H Prothrombin Time 22.4 H Prothrombin Time Ratio 1.8 INR International Normalized Ratio 1.95 C-Reactive Protein 26.9 H Medications Medications Current Medications Enoxaparin Sodium (Lovenox) 80 mg Q12 SC Last administered on 10/14/16t 09:19; Admin Dose 80 MG; Start 10/04/16 at 16:35 Ondansetron HCl (Zofran Inj) 4 mg Q6H PRN IV NAUSEA AND/OR VOMITING Last administered on 10/06/16 15:14; Admin Dose 4 MG; Start 10/04/16 at 16:00 Morphine Sulfate (morphine) 4 mg Q4H PRN IV SEVERE PAIN LEVEL 7-10 Last administered on 10/06/16 02:27; Admin Dose 4 MG; Start 10/04/16 at 16:00 Magnesium Hydroxide (Milk Of Mag) 30 ml DAILY PRN PO CONSTIPATION Last administered on 10/07/16 14:32; Admin Dose 30 ML; Start 10/04/16 at 16:00 Famotidine (Pepcid) 20 mg Q12 PO Last administered on 10/14/16 09:16; Admin Dose 20 MG; Start 10/04/16 at 21:00 Acetaminophen (Tylenol Tab) 650 mg Q6H PRN PO PAIN AND OR ELEVATED TEMP Last administered on 10/11/16 20:03; Admin Dose 650 MG; Start 10/05/16 at 00:30 Metoclopramide HCl (Reglan) 10 mg Q6H PRN IV Nausea Last administered on 19:39; Admin Dose 10 MG; Start 10/06/16 at 19:30 Hydromorphone HCl (Dilaudid) 1.5 mg Q4H PRN IV PAIN Last administered on 11:58; Admin Dose 1.5 MG; Start 10/07/16 at 05:00 Levofloxacin (Levaquin) 500 mg DAILY@06 PO Last administered on 10/14/16 05:53 ; Admin Dose 500 MG; Start 10/07/16 at 13:00 Promethazine HCl/ Codeine (Phenergan/ Codeine) 5 ml Q4H PRN PO COUGH Last administered on 10/13/16 10:40; Admin Dose 5 ML; Start 10/07/16 at 13:30 Warfarin Sodium (Coumadin) 7.5 mg DAILY@17 PO Last administered on 10/13/16 16 :46; Admin Dose 7.5 MG; Start 10/08/16 at 17:00 Acetaminophen/ Hydrocodone Bitart ([place] (5/325)) 1 tab Q4H PRN PO PAIN; Start 10/11/16 at 17:00 Acetaminophen/ Hydrocodone Bitart ([place] ()) 1 tab Q4H PRN PO SEVERE PAIN LEVEL 7-10 Last administered on 10/14/16t 05:53; Admin Dose 1 TAB; Start at 17:00 LISA CHEUNG October 14, 2016 14:22
[2016-10-14] MEDS: PROMETHAZINE/CODEINE 5ML CUP PO PRN ×2 (15:39→20:18)
[2016-10-14] MEDS: RIVAROXABAN 15 MG TABLET PO SCH (18:00)
[2016-10-14] MEDS: ACETAMINOPHEN 325 MG TAB PO PRN (18:45)
[2016-10-14 19:00] VITALS: BP 117/67; RESP 20
[2016-10-14] MEDS ORDERED: APIXABAN 5 MG TABLET PO SCH (21:00)
[2016-10-15] MEDS: HYDROmorphONE 2 MG/ML SYG IV PRN ×4 (02:05→15:08)
[2016-10-15 05:29] LABS: ADD SCAN DIFF NO
[2016-10-15 05:46] LABS: BASOPHILS % 0.3 % (0.0-2.0); EOSINOPHILS # 0.2 10^3/ul (0.0-0.5); EOSINOPHILS % 3.9 % (0.0-7.0); HEMATOCRIT 34.9 % (42.0-52.0); HEMOGLOBIN 11.7 g/dl (14.0-18.0); LYMPHOCYTES # 0.9 10^3/ul (0.8-2.9); LYMPHOCYTES % 15.2 % (15.0-51.0); MEAN CORPUSCULAR HEMOGLOBIN 26.5 pg (29.0-33.0); MEAN CORPUSCULAR HGB CONC 33.5 g/dl (32.0-37.0); MEAN CORPUSCULAR VOLUME 79.1 fl (82.0-101.0); MEAN PLATELET VOLUME 9.1 fl (7.4-10.4); MONOCYTE # 0.9 10^3/ul (0.3-0.9); MONOCYTES % 14.7 % (0.0-11.0); NEUTROPHIL # 3.8 10^3/ul (1.6-7.5); NEUTROPHILS % 61.7 % (39.0-77.0); PLATELET COUNT 560 10^3/UL (140-415); RED BLOOD COUNT 4.41 10^6/ul (4.70-6.10); RED CELL DISTRIBUTION WIDTH 13.1 % (11.5-14.5); WHITE BLOOD COUNT 6.2 10^3/ul (4.8-10.8)
[2016-10-15 05:57] LABS: INR 2.48; PROTIME 27.1 Sec (12.2-14.2); PT RATIO 2.1
[2016-10-15 06:10] LABS: CALCIUM 8.9 mg/dl (8.4-10.2); CREATININE 0.76 mg/dl (0.61-1.24); MAGNESIUM 2.4 mg/dl (1.7-2.5); POTASSIUM 4.5 mmol/L (3.5-5.1)
[2016-10-15] MEDS: PROMETHAZINE/CODEINE 5ML CUP PO PRN ×2 (06:31→14:00)
[2016-10-15] MEDS: HYDROCODONE/APAP (10/325) TAB PO PRN ×2 (08:11→14:02)
[2016-10-15] MEDS: RIVAROXABAN 15 MG TABLET PO SCH (08:11)
[2016-10-15] MEDS: FAMOTIDINE 20 MG TAB PO SCH (08:11)
[2016-10-15 08:37] VITALS: BP 108/61; RESP 18
[2016-10-15] MEDS ORDERED: RIVA20TA PO (14:10)
[2016-10-15] MEDS ORDERED: RIVA15TA PO (14:10)
--- NOTE | 2016-10-15 20:01 | DS ---
DATE OF ADMISSION: 10/04/2016 DATE OF DISCHARGE: 10/15/2016 DISCHARGE DIAGNOSES: 1. Bilateral pulmonary emboli, recurrent, with left lower extremity deep venous thrombosis status p ost treatment Coumadin and Lovenox ultimately switched to Xarelto and discharged with Xarelto. Hype rcoagulable state workup was negative. 2. Chest pain secondary to pulmonary infarct. Discharged with [place]. 3. Systemic inflammatory response syndrome secondary to pulmonary infarct, possible pneumonia, stat us post antibiotics, now resolved. HOSPITAL COURSE: The patient is a 41-year-old male with a history of pulmonary embolism in the past . The patient was on 6 months of Coumadin. The patient never had any clear etiology for the pulmon kayce embolism. The patient presents at this time with bilateral pulmonary emboli as well as left low er extremity deep venous thrombosis. The patient was seen by hematology. Hypercoagulable workup wa s done. The patient had no significant finding issues. He was negative for antiphospholipid syndro me. The patient was on Lovenox and Coumadin. As patient does not have insurance, was felt that he may need to go home with Coumadin. The patient ultimately did get Medi-Diego. After discussion with hematology, it was felt it appropriate for patient to be on either Eliquis or Xarelto, as he does no t have antiphospholipid syndrome. The patient was provided with Xarelto upon discharge. Of note, aj torres was seen by pulmonology as well during hospitalization. He did have a subsequent CAT scan th at did show improvement of clot burden, but a new large area of consolidation with surrounding groun d glass density that was thought to be an evolving pulmonary infarct given the extent of the pulmona ry emboli. It was also thought to be possible infection. The patient was on antibiotics. He did h ave chest pain secondary to pulmonary infarct. He did have a fair amount of hemoptysis. This chest pain and the hemoptysis did improve significantly. The patient was ultimately felt to be stable fo r discharge. On the day of discharge, patient's vital signs and physical exam were stable. He had no acute complaints. Questions were answered. CONDITION ON DISCHARGE: Stable. DISPOSITION: To home. MEDICATIONS: The patient was given a prescription for Xarelto 15 mg p.o. b.i.d. for 21 days, then 2 0 mg p.o. daily thereafter. The patient has no reported home medications. The patient was told he needs to remain on Xarelto indefinitely. FOLLOWUP: With PCP in 1 to 2 weeks and with podiatrist. Greater than 30 minutes was spent coordinating discharge of patient. Dictated By: LISA CHEUNG MD BS/NTS Conf#: [id number] DID#: [id number] CC: FIDELINA BUSTILLO MD;*EndCC*
--- NOTE | 2016-10-16 14:18 | RADRPT ---
Vent Rate: 95 bpm RR Interval: 0 msec [place] Interval: 148 msec QRS Duration: 78 msec QT Interval: 316 msec QTC Interval: 397 msec P-R-T [place]: 63 - 41 - 44 degrees Normal sinus rhythm Voltage criteria for left ventricular hypertrophy Abnormal ECG Electronically Signed By: Jordin Moreira [id number]
== END 2016-10-15 16:55 | disposition home or self-care (01) | DRG 175 ==
LOC: FTE 10:58 → MS1 18:31 → UNDODISIN 10-07 13:15
PROVIDERS: ADMIT Family Medicine; ATTEND Family Medicine
DX: I26.99 Other pulmonary embolism without acute cor pulmonale (principal); J18.9 Pneumonia, unspecified organism; R65.10 Systemic inflammatory response syndrome (SIRS) of non-infectious origin without acute organ dysfunction; I82.442 Acute embolism and thrombosis of left tibial vein; I82.492 Acute embolism and thrombosis of other specified deep vein of left lower extremity; F17.200 Nicotine dependence, unspecified, uncomplicated; R00.1 Bradycardia, unspecified; Z86.711 Personal history of pulmonary embolism
CPT/HCPCS: 36415; 71010; 71020; 71275; 80048; 80053; 80061; 80307; 81003; 81240; 83036; 83735; 83890; 84100; 84439; 84443; 84484; 85025; 85300; 85302; 85305; 85378; 85610; 85613; 85651; 85730; 86140; 86146; 86147; 87040; 87086; 93005; 93971; 96372; 96374; 96375; 96376; J1170; J2270; J2405; J2765; Q9967

== ENCOUNTER 2016-10-17 09:27 | Inpatient (IN) | payer MEDICAID ==
[~2016-10-17] VITALS: Ht 182.9 cm; Wt 81.5 kg
[~2016-10-17 09:27] MED LIST changes: -IBUP-1542 PO; +RIVA15TA PO; +RIVA20TA PO
[2016-10-17 09:30] VITALS: Ht 182.9 cm; Wt 81.5 kg
[2016-10-17] MEDS ORDERED: HYDR-906 PO (10:18)
[2016-10-17] MEDS ORDERED: ALBUTEROL 0.083% (NEB) 2.5 MG/3 ML AMP INH STA (10:30)
[2016-10-17] MEDS ORDERED: IPRATROPIUM (NEB) 0.5 MG/2.5 ML AMP INH STA (10:30)
[2016-10-17] MEDS ORDERED: SOD CHLORIDE 0.9% 500 ML IV STA (10:30)
--- NOTE | 2016-10-17 10:59 | RADRPT ---
PROCEDURE: Chest x-ray CLINICAL INDICATION: Shortness of breath TECHNIQUE: Chest single view COMPARISON: 10/07/2016 FINDINGS: The heart is normal in size. The pulmonary vessels are normal in caliber. There is persistent bila teral lower lobe pneumonia which is not significantly changed. No new infiltrates are seen. Costop hrenic angles are sharp. IMPRESSION: 1. Persistent bilateral lower lobe pneumonia left greater than right.. 2. No new infiltrates identified RPTAT: HH .Carlos Lindo MD, Date Time Electronically viewed and signed by .Carlos Lindo MD, on 10/17/2016 10:59 .W/
[2016-10-17 11:17] LABS: ADD SCAN DIFF NO
[2016-10-17] MEDS ORDERED: IOHEXOL 350MG/ML 50 ML BTL ONE (11:19)
[2016-10-17] MEDS ORDERED: IOHEXOL 100 ML ONE (11:19)
[2016-10-17] MEDS ORDERED: SOD CHLORIDE 0.9% 100 ML ONE (11:19)
[2016-10-17 11:34] LABS: BASOPHILS % 0.2 % (0.0-2.0); EOSINOPHILS # 0.1 10^3/ul (0.0-0.5); EOSINOPHILS % 1.5 % (0.0-7.0); HEMATOCRIT 35.1 % (42.0-52.0); HEMOGLOBIN 11.4 g/dl (14.0-18.0); LYMPHOCYTES % 14.8 % (15.0-51.0); MEAN CORPUSCULAR HEMOGLOBIN 26.3 pg (29.0-33.0); MEAN CORPUSCULAR HGB CONC 32.5 g/dl (32.0-37.0); MEAN CORPUSCULAR VOLUME 80.9 fl (82.0-101.0); MEAN PLATELET VOLUME 9.1 fl (7.4-10.4); MONOCYTE # 0.7 10^3/ul (0.3-0.9); MONOCYTES % 11.2 % (0.0-11.0); NEUTROPHIL # 4.7 10^3/ul (1.6-7.5); NEUTROPHILS % 71.2 % (39.0-77.0); RED BLOOD COUNT 4.34 10^6/ul (4.70-6.10); RED CELL DISTRIBUTION WIDTH 13.3 % (11.5-14.5); WHITE BLOOD COUNT 6.5 10^3/ul (4.8-10.8)
[2016-10-17 11:38] LABS: ANION GAP 11 (8-16); BLOOD UREA NITROGEN 14 mg/dl (7-20); CARBON DIOXIDE 29 mmol/L (21-31); CHLORIDE 101 mmol/L (97-110); GLUCOSE 99 mg/dl (70-220); INR 2.36; POTASSIUM 4.2 mmol/L (3.5-5.1); PROTIME 26.1 Sec (12.2-14.2); SODIUM 137 mmol/L (135-144)
[2016-10-17 11:39] LABS: PARTIAL THROMBOPLASTIN TIME 42.2 Sec (25.0-35.0); PLATELET COUNT 678 10^3/UL (140-415)
[2016-10-17 11:49] LABS: B-TYPE NATRIURETIC PEPTIDE 31 PG/ML (0-125)
[2016-10-17 11:51] LABS: TROPONIN-I < 0.012 ng/ml (0.00-0.12)
--- NOTE | 2016-10-17 12:02 | RADRPT ---
PROCEDURE: CTA Chest. CLINICAL INDICATION: Chest pain and shortness of breath TECHNIQUE: Continues 1.25 mm axial images were obtained from lung apices to the domes of diaphragm s following intravenous injection of 115 cc of Isovue 370. Images reconstructed in coronal, sagitta l, and 3-D format using maximum intensity projection technique.. The calculated dose length product (DLP) = 507.77 mGy-cm. The CTDlvol = 13.14 mGy. One or more of the following dose reduction techniq ues were used: Automated exposure control, adjustment of the mA and or KV according to patient size, or use of iterative reconstruction technique. COMPARISON: 10/09/2016 and 10/04/2016 FINDINGS: Images through the pulmonary arteries demonstrate complete resolution of clot burden within the righ t pulmonary arteries is seen on the initial CT from 10/04/2016. There is moderate recannulation of t he clot burden noted in the left medial and posterior basal segments of the left lower lobe pulmonar y artery. No clot burden is identified in the left upper lobe pulmonary artery. No new clot are id entified. There is no evidence of right ventricular strain. Ascending and descending thoracic aort a are normal in caliber without aneurysmal dilatation or dissection. Heart chambers are normal in s ize. No pericardial effusion is seen. There are no pathologically enlarged mediastinal or axillary lymph nodes. Evaluation of the lung carranza demonstrates persistent area of consolidation in the left lower lung w hich is stable to minimally improved. This may represent an area of pulmonary infarction. Stable s mall to moderate left pleural effusion is identified. Linear opacity is noted extending through the right lower lung which which has increased slightly and likely represents atelectasis. The upper l darlyn carranza remain clear. No other areas of consolidation are noted. No suspicious or dominant lung nodules/masses are identified. No destructive bony lesions are seen. Images through the upper abdomen are grossly unremarkable. IMPRESSION: 1. Complete resolution of clot identified within the right pulmonary arteries compared to the initi al study from 10/04/2016. 2. Significant recannulation of remaining clot noted within the left medial lower lobe pulmonary ar teries compared to 10/09/2016. A small amount of clot burden remains. 3. No new clot identified within the pulmonary arteries 4. No evidence of right ventricular strain. 5. No aortic aneurysm or dissection. 6. Persistent area of dense consolidation left lower lobe with air bronchograms which is stable to minimally improved. This may represent an area of pulmonary infarction +/- superinfection 7. Stable moderate left pleural effusion. 5. Slight interval increase of linear right lower lobe atelectasis versus area of infarction RPTAT: HH .Carlos Lindo MD, Date Time Electronically viewed and signed by .Carlos Lindo MD, on 10/17/2016 12:02 .W/
--- NOTE | 2016-10-17 13:55 | ERA ---
ER Documentation Chief Complaint Date/Time DATE: 10/17/16 TIME: 13:54 Chief Complaint sob and chest pain when inhales worse since last night, hx PE HPI This is a 41-year-old male who was just discharged from this hospital 2 days ago for pulmonary embolism with pulmonary infarct/pneumonia. Patient is taking his Xarelto was told. He is returned because he is having some shortness of breath today. The patient states that over the past day and a half he is a productive cough that is colored a fluorescent green with mixed bright red blood. He says his cough is worse when he lays down he feels like mucus is "pouring out of me". He was on antibiotics while in the hospital here because he is having signs of pneumonia on CT scan as well as having fever of 102. He was not discharged on antibiotics. Is having no palpitations chest pain dizziness. ROS All systems reviewed and are negative except as per history of present illness. Medications Home Meds Active Scripts Rivaroxaban* (Xarelto*) 20 Mg Tablet, 20 MG PO WITH DINNER for 90 Days, TAB 3 Refills Prov:LISA CHEUNG 10/15/16 Rivaroxaban* (Xarelto*) 15 Mg Tablet, 15 MG PO BID for 21 Days, TAB Prov:LISA CHEUNG 10/15/16 Reported Medications Hydrocodone/Acetaminophen (Raphine 5-325 Tablet) 1 Each Tablet, 1 EACH PO BID Y for SEVERE PAIN LEVEL 7-10, TAB 10/17/16 Allergies Allergies: Coded Allergies: No Known Allergy (Unverified , 10/04/16) PMhx/Soc History of Surgery: No Anesthesia Reaction: No Hx Neurological Disorder: No Hx Respiratory Disorders: Yes (HX OF P.E.) Hx Cardiac Disorders: No Hx Psychiatric Problems: No Hx Miscellaneous Medical Probl: Yes (recent hosp due to PE 2 weeks ago) Hx Alcohol Use: Yes Hx Substance Use: Yes (MARIJUANA ) Hx Tobacco Use: Yes Smoking Status: Current some day smoker FmHx Family History: No coronary disease Physical Exam Vitals Vital Signs Date Time Temp Pulse Resp B/P Pulse Ox O2 Delivery O2 Flow Rate FiO2 10/17/16 11:59 94 22 99 21 10/17/16 10:38 Nasal Cannula 2 10/17/16 09:30 97.8 103 20 136/85 99 Physical Exam Const: Well-developed, well-nourished Head: Atraumatic, normocephalic Eyes: Normal Conjunctiva, PERRLA, EOMI, normal sclera, no nystagmus ENT: Normal External Ears, Nose and Mouth, moist mucus membranes. Neck: Full range of motion. No meningismus, no lymphadenopathy. Resp: Decreased breath sounds in both bases left more than right, diffuse end expiratory wheezing scattered throughout both lung carranza Cardio: Tachycardia, no murmurs, S1 S2 present] Abd: Soft, non tender x 4, non distended. Normal bowel sounds, no guarding or rebound, no pulsitile abdominal masses or bruits Skin: No petechiae or rashes, no ecchymosis , no maculopapular rash Back: No midline or flank tenderness Ext: No cyanosis, or edema, FROM x 4, normal inspection, neurovascularly intact x 4 Neur: Awake and alert, STR 5/5 x 4, sensation intact x 4, no focal findings, cerebellum intact Psych: Normal Mood and Affect Result Diagram: 10/17/16 1046 10/17/16 1046 Results 24 hrs Laboratory Tests Test 10/17/16 10:46 White Blood Count 6.510^3/ul Red Blood Count 4.3410^6/ul Hemoglobin 11.4g/dl Hematocrit 35.1% Mean Corpuscular Volume 80.9fl Mean Corpuscular Hemoglobin 26.3pg Mean Corpuscular Hemoglobin Concent 32.5g/dl Red Cell Distribution Width 13.3% Platelet Count 51791^3/UL Mean Platelet Volume 9.1fl Neutrophils % 71.2% Lymphocytes % 14.8% Monocytes % 11.2% Eosinophils % 1.5% Basophils % 0.2% Nucleated Red Blood Cells % 0.0/100WBC Neutrophils # 4.710^3/ul Lymphocytes # 1.010^3/ul Monocytes # 0.710^3/ul Eosinophils # 0.110^3/ul Basophils # 0.010^3/ul Nucleated Red Blood Cells # 0.010^3/ul Prothrombin Time 26.1Sec Prothrombin Time Ratio 2.0 INR International Normalized Ratio 2.36 Activated Partial Thromboplast Time 42.2Sec Sodium Level 137mmol/L Potassium Level 4.2mmol/L Chloride Level 101mmol/L Carbon Dioxide Level 29mmol/L Anion Gap 11 Blood Urea Nitrogen 14mg/dl Creatinine 0.80mg/dl Glucose Level 99mg/dl Calcium Level 9.0mg/dl Troponin I < 0.012ng/ml B-Type Natriuretic Peptide 31PG/ML Current Medications Medications (Trade) Dose Ordered Sig/Eleazar Route PRN Reason Start Time Stop Time Status Last Admin Dose Admin Sodium Chloride (NS) 500 ml @ 500 mls/hr Q1H STAT IV 10/17/16 10:30 10/17/16 11:29 DC 10/17/16 10:56 Albuterol (Proventil 0.083% (Neb)) 7.5 mg ONCE STAT INH 10/17/16 10:30 10/17/16 10:32 DC 10/17/16 11:58 Ipratropium [place] (Atrovent 0.02% (Neb)) 0.5 mg ONCE STAT INH 10/17/16 10:30 10/17/16 10:32 DC 10/17/16 11:58 IV Flush 10 ml 10 ml STK-MED ONCE .ROUTE 10/17/16 11:19 10/17/16 11:20 DC 10/17/16 11:39 Sodium Chloride 100 ml @ ud STK-MED ONCE .ROUTE 10/17/16 11:19 10/17/16 11:20 DC 10/17/16 11:39 Iohexol (Omnipaque) 100 ml @ ud STK-MED ONCE .ROUTE 10/17/16 11:19 10/17/16 11:20 DC 10/17/16 11:40 Iohexol (Omnipaque 350mg/ ml) 50 ml STK-MED ONCE .ROUTE 10/17/16 11:19 10/17/16 11:20 DC 10/17/16 11:41 Procedures/MDM PROCEDURE: Chest x-ray CLINICAL INDICATION: Shortness of breath TECHNIQUE: Chest single view COMPARISON: 10/07/2016 FINDINGS: The heart is normal in size. The pulmonary vessels are normal in caliber. There is persistent bilateral lower lobe pneumonia which is not significantly changed. No new infiltrates are seen. Costophrenic angles are sharp. IMPRESSION: 1. Persistent bilateral lower lobe pneumonia left greater than right.. 2. No new infiltrates identified RPTAT: .Carlos Lindo MD, MD Date Time Electronically viewed and signed by .Carlos Lindo MD, MD on 10/17/2016 10:59 .W/ CC: MARIA DEL CARMEN DEL REAL DO PROCEDURE: CTA Chest. CLINICAL INDICATION: Chest pain and shortness of breath TECHNIQUE: Continues 1.25 mm axial images were obtained from lung apices to the domes of diaphragms following intravenous injection of 115 cc of Isovue 370. Images reconstructed in coronal, sagittal, and 3-D format using maximum intensity projection technique.. The calculated dose length product (DLP) = 507.77 mGy-cm. The CTDlvol = 13.14 mGy. One or more of the following dose reduction techniques were used: Automated exposure control, adjustment of the mA and or KV according to patient size, or use of iterative reconstruction technique. COMPARISON: 10/09/2016 and 10/04/2016 FINDINGS: Images through the pulmonary arteries demonstrate complete resolution of clot burden within the right pulmonary arteries is seen on the initial CT from 2016. There is moderate recannulation of the clot burden noted in the left medial and posterior basal segments of the left lower lobe pulmonary artery. No clot burden is identified in the left upper lobe pulmonary artery. No new clot are identified. There is no evidence of right ventricular strain. Ascending and descending thoracic aorta are normal in caliber without aneurysmal dilatation or dissection. Heart chambers are normal in size. No pericardial effusion is seen. There are no pathologically enlarged mediastinal or axillary lymph nodes. Evaluation of the lung carranza demonstrates persistent area of consolidation in the left lower lung which is stable to minimally improved. This may represent an area of pulmonary infarction. Stable small to moderate left pleural effusion is identified. Linear opacity is noted extending through the right lower lung which which has increased slightly and likely represents atelectasis. The upper lung carranza remain clear. No other areas of consolidation are noted. No suspicious or dominant lung nodules/masses are identified. No destructive bony lesions are seen. Images through the upper abdomen are grossly unremarkable. IMPRESSION: 1. Complete resolution of clot identified within the right pulmonary arteries compared to the initial study from 10/04/2016. 2. Significant recannulation of remaining clot noted within the left medial lower lobe pulmonary arteries compared to 10/09/2016. A small amount of clot burden remains. 3. No new clot identified within the pulmonary arteries 4. No evidence of right ventricular strain. 5. No aortic aneurysm or dissection. 6. Persistent area of dense consolidation left lower lobe with air bronchograms which is stable to minimally improved. This may represent an area of pulmonary infarction +/- superinfection 7. Stable moderate left pleural effusion. 5. Slight interval increase of linear right lower lobe atelectasis versus area of infarction RPTAT: HH .Carlos Lindo MD, MD Date Time Electronically viewed and signed by .Carlos Lindo MD, MD on 10/17/2016 12:02 .W/ CC: MARIA DEL CARMEN DEL REAL DO We will give antibiotics draw blood cultures admit to the hospital for left lower lobe pneumonia EKG: Rate/Rhythm: Normal Sinus Rhythm,NL intervals QRS, ST, QT: NORMAL [place], QRS, QT] Impression: NORMAL EKG Departure Diagnosis: Primary Impression: Shortness of breath Additional Impression: Left lower lobe pneumonia Qualified Code: J18.1 - Pneumonia of left lower lobe due to infectious organism Condition: Stable MARIA DEL CARMEN DEL REAL DO October 17, 2016 13:55
[2016-10-17] MEDS ORDERED: CEFEPIME 1GM/50 ML (PMX) 50 ML IVPB STA (14:05)
[2016-10-17] MEDS ORDERED: VANCOMYCIN 1 GM (PMX) 250 ML IVPB STA (14:05)
[2016-10-17] MEDS ORDERED: ACETAMINOPHEN 325 MG TAB PO PRN ×2 (14:30→16:00)
[2016-10-17] MEDS ORDERED: ONDANSETRON 4 MG INJ IV PRN ×2 (14:30→16:00)
[2016-10-17 15:00] VITALS: BP 129/74; PULSE 99
[2016-10-17] MEDS ORDERED: ALBUTEROL 0.083% (NEB) 2.5 MG/3 ML AMP HHN PRN (16:00)
[2016-10-17] MEDS ORDERED: MAGNESIUM HYDROXIDE 30ML CUP PO PRN (16:00)
[2016-10-17] MEDS ORDERED: VANCOMYCIN 1 GM in NS 250 ML IVPB SCH (16:00)
[2016-10-17] MEDS ORDERED: BISACODYL (EC) 5 MG TAB PO PRN (16:00)
[2016-10-17] MEDS ORDERED: VANCOMYCIN IV PER PHARMACY XX SCH (16:00)
[2016-10-17] MEDS: SOD CHLORIDE 0.9% 1,000 ML IV SCH (16:20)
[2016-10-17] MEDS: HYDROmorphONE 1 MG/ML SYG IV PRN ×2 (16:20→20:20)
--- NOTE | 2016-10-17 17:11 | HP ---
DATE OF ADMISSION: 10/17/2016 TIME OF EVALUATION: 1530. REASON FOR ADMISSION: Dyspnea, chest pain with inspiration. CONSULTANTS 1.Pulmonary. HISTORY OF PRESENT ILLNESS: This is a 41-year-old -[place]ian male with past medical history of pulmonary embolism with pulmonary infarct and pneumonia who was discharged home on 10/15/2016 after treatment for pneumonia, and the patient was started on long-term anticoagulation for PE secondary to protein S deficiency. The patient was recently treated for pulmonary infarct and possible underlying pneumonia with Levaquin. The patient was not discharged home on any antibiotics. The patient verbalized that he started having a productive cough with audible wheezing since 10/16/2016. The patient was also complaining of productive cough with greenish sputum production with blood tinge in it. The patient verbalized subjective fevers. He was complaining of pleuritic chest pain. The patient verbalized that he has been compliant with his Xarelto. The patient denied any palpitations or dizziness. In the emergency room, the patient underwent a CT angiogram of the chest that showed complete resolution of clot identified within the pulmonary arteries compared to the study from 10/04/2016. The CT revealing persistent area of dense consolidation in the left lower lobe with air bronchograms, which are stable and minimally improved. The CTA also showd stable moderate left pleural effusion. CT also revealed slight interval increase of linear right lower lobe atelectasis as well as area of infarction. The patient was treated with IV cefepime and IV vancomycin in the emergency room and inhaled bronchodilators. PAST MEDICAL HISTORY: Pulmonary embolism, DVT of the left lower extremity, protein S deficiency. PAST SURGICAL HISTORY: Denies. HOME MEDICATIONS: 1. Xarelto 15 mg p.o. b.i.d. 2. [place] 5/325 one tablet p.o. t.i.d. p.r.n. pain. ALLERGIES: NO KNOWN DRUG ALLERGIES. 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 The patient is an occasional tobacco user. The patient smokes marijuana in between. Occasional drinker. REVIEW OF SYSTEMS: A 12-point review of systems was negative other than what is mentioned in history of present illness. PHYSICAL EXAMINATION: VITAL SIGNS: Temperature 97.8, pulse rate 84, respiratory rate 18, blood pressure 130/83, oxygen saturation 99% on room air. GENERAL: This is a well-built, well-nourished -[place]ian male lying in bed in no apparent distress. HEENT: Head normocephalic and atraumatic. Eyes: Anicteric sclerae. Conjunctivae clear. ENT: Nasal septum is midline. Oral mucosa is dry. NECK: Supple. No JVD noticed. RESPIRATORY: Bilateral diminished breath sounds. Bilateral expiratory wheezing. No use of accessory muscles of respiration. CARDIAC: Regular rate and rhythm. GASTROINTESTINAL: S1, S2 heard. ABDOMEN: Soft, nontender and nondistended. Bowel sounds positive in all 4 quadrants. GENITOURINARY: Deferred. EXTREMITIES: No cyanosis, no clubbing, no edema. Peripheral pulses are palpable. NEUROLOGIC: The patient is awake, alert and oriented. Cranial nerves are grossly intact. LABORATORY AND DIAGNOSTIC DATA: WBC 6.5, hemoglobin 11.4, hematocrit 35.1, platelet count 678. Sodium 137, potassium 4.2, chloride 101, carbon dioxide 20 , anion gap 11, BUN 14, creatinine 0.80, glucose 99, calcium 9.0. Troponin I less than 0.012. BNP 31. PT 26.1, INR 2.368, PTT 42.2. CT ANGIOGRAM OF THE CHEST IMPRESSION: 1. Complete resolution of clot identified within the right pulmonary arteries compared to the initial study from 10/04/2016. 2. Significant recannulation of remaining clot noted within the left medial lower lobe pulmonary arteries compared to 10/09/2016. A small amount of clot burden remains. 3. No new clot identified within the pulmonary arteries 4. No evidence of right ventricular strain. 5. No aortic aneurysm or dissection. 6. Persistent area of dense consolidation left lower lobe with air bronchograms which is stable to minimally improved. This may represent an area of pulmonary infarction +/- superinfection 7. Stable moderate left pleural effusion. 8. Slight interval increase of linear right lower lobe atelectasis versus area of infarction. IMPRESSION: This is a 41-year-old male with a known history of pulmonary embolism and positive protein S deficiency, who came to the emergency room with a febrile illness, a productive cough and pleuritic chest pain, who was found to have evidence of left lower lobe consolidation. We will be admitted here for further treatment and evaluation. ASSESSMENT AND PLAN: 1. Left lower lobe consolidation. Healthcare associated pneumonia. The patient will be started on IV cefepime and IV vancomycin. Hawk cultures will be ordered. Influenza A and B screen will be ordered. 2. Sepsis secondary to underlying pneumonia. No evidence of any septic shock. The patient will be adequately hydrated. Lactic acid levels will be trended. 3. Recurrent bilateral pulmonary embolism. Anticoagulated on factor Xa inhibitors. Current CT angiogram showing improved clot burden and resolution of previous pulmonary embolism. 4. Microcytic, hypochromic anemia. We will monitor H and H closely. Will do an iron panel on this patient. PLAN. The patient will be admitted to inpatient medical/surgical floor. The patient will be started on a regular diet. The patient will be started on gastrointestinal prophylaxis. The patient will also be started on inhaled bronchodilators since the patient has evidence of active bronchospasm. The patient will be therapeutically anticoagulated using factor Xa inhibitors. Activities will be as tolerated. The rest of the patient's management will be based on the clinical course and the results of diagnostic studies. Based on patient's clinical presentation, he most probably requires at least 2 midnights' stay for further management and evaluation of his clinical presentation. The case and management of this patient was fully discussed with Dr. Bustillo. NING BUSTILLO MD, AM/PEDRO Conf#: [id number] DID#: [id number] YOSELIN
[2016-10-17] MEDS: RIVAROXABAN 15 MG TABLET PO SCH (17:54)
[2016-10-17 18:55] LABS: ADD UMIC NO; URINE BILIRUBIN (Dip) NEGATIVE (NEGATIVE); URINE BLOOD (Dip) NEGATIVE (NEGATIVE); URINE COLOR LT. YELLOW (YELLOW); URINE GLUCOSE (Dip) NEGATIVE (NEGATIVE); URINE KETONES (Dip) NEGATIVE (NEGATIVE); URINE LEUKOCYTE ESTERASE (Dip) NEGATIVE (NEGATIVE); URINE NITRITE (Dip) NEGATIVE (NEGATIVE); URINE TOTAL PROTEIN (Dip) NEGATIVE (NEGATIVE); URINE UROBILINOGEN (Dip) 0.2 E.U./dL (0.1-1.0)
[2016-10-17 19:14] LABS: BARBITURATES NEGATIVE (NEGATIVE); BENZODIAZEPINES NEGATIVE (NEGATIVE); CANNABINOIDS NEGATIVE (NEGATIVE); COCAINE NEGATIVE (NEGATIVE); OPIATES POSITIVE (NEGATIVE)
[2016-10-17 19:49] LABS: IRON 31 ug/dl (35-150)
[2016-10-17 19:59] LABS: TOTAL IRON BINDING CAPACITY 258 ug/dl (241-421)
[2016-10-17 20:02] VITALS: BP 118/65; RESP 18
[2016-10-17] MEDS: VANCOMYCIN 1 GM in NS 250 ML IVPB SCH (20:20)
[2016-10-17] MEDS: FAMOTIDINE 20 MG TAB PO SCH (20:21)
[2016-10-17] MEDS: ALBUTEROL 0.083% (NEB) 2.5 MG/3 ML AMP HHN SCH (20:29)
[2016-10-17] MEDS: GUAIFENESIN/DM 5ML CUP PO PRN (21:21)
[2016-10-17] MEDS: CEFEPIME 2GM/50 ML (PMX) 50 ML IVPB SCH (22:49)
[2016-10-18] MEDS: HYDROmorphONE 1 MG/ML SYG IV PRN ×5 (01:48→21:31)
[2016-10-18] MEDS: GUAIFENESIN/DM 5ML CUP PO PRN ×3 (01:57→19:49)
[2016-10-18] MEDS: SOD CHLORIDE 0.9% 1,000 ML IV SCH ×3 (04:43→22:00)
[2016-10-18] MEDS: VANCOMYCIN 1 GM in NS 250 ML IVPB SCH ×2 (04:46→11:24)
[2016-10-18 05:52] LABS: ADD SCAN DIFF NO
[2016-10-18 06:05] LABS: BASOPHILS % 0.2 % (0.0-2.0); EOSINOPHILS # 0.2 10^3/ul (0.0-0.5); HEMATOCRIT 30.8 % (42.0-52.0); HEMOGLOBIN 10.1 g/dl (14.0-18.0); LYMPHOCYTES % 19.4 % (15.0-51.0); MEAN CORPUSCULAR HEMOGLOBIN 26.6 pg (29.0-33.0); MEAN CORPUSCULAR HGB CONC 32.8 g/dl (32.0-37.0); MEAN CORPUSCULAR VOLUME 81.1 fl (82.0-101.0); MEAN PLATELET VOLUME 8.7 fl (7.4-10.4); MONOCYTE # 0.7 10^3/ul (0.3-0.9); MONOCYTES % 12.3 % (0.0-11.0); NEUTROPHIL # 3.5 10^3/ul (1.6-7.5); NEUTROPHILS % 64.4 % (39.0-77.0); PLATELET COUNT 538 10^3/UL (140-415); RED CELL DISTRIBUTION WIDTH 13.4 % (11.5-14.5); WHITE BLOOD COUNT 5.4 10^3/ul (4.8-10.8)
[2016-10-18 06:15] LABS: INR 1.5; PROTIME 18.2 Sec (12.2-14.2); PT RATIO 1.4
[2016-10-18 06:16] LABS: PARTIAL THROMBOPLASTIN TIME 32.1 Sec (25.0-35.0); POTASSIUM 4.3 mmol/L (3.5-5.1)
[2016-10-18 06:18] LABS: CREATININE 0.78 mg/dl (0.61-1.24)
[2016-10-18 06:19] LABS: CALCIUM 8.3 mg/dl (8.4-10.2)
[2016-10-18 06:51] LABS: MAGNESIUM 2.2 mg/dl (1.7-2.5); PHOSPHORUS 3.9 mg/dl (2.5-4.9)
[2016-10-18] MEDS: ALBUTEROL 0.083% (NEB) 2.5 MG/3 ML AMP HHN SCH ×3 (07:41→19:42)
[2016-10-18 07:55] VITALS: BP 115/64; RESP 16
[2016-10-18] MEDS: FAMOTIDINE 20 MG TAB PO SCH ×2 (08:24→21:02)
[2016-10-18] MEDS: RIVAROXABAN 15 MG TABLET PO SCH ×2 (08:24→17:16)
[2016-10-18] MEDS: CEFEPIME 2GM/50 ML (PMX) 50 ML IVPB SCH ×2 (08:24→20:46)
[2016-10-18] MEDS: HYDROCODONE/APAP (5/325) TAB PO PRN ×2 (11:24→21:28)
--- NOTE | 2016-10-18 12:34 | CONS ---
Date/Time of Note Date/Time of Note DATE: 10/18/16 TIME: 12:31 Assessment/Plan Assessment/Plan Additional Assessment/Plan Assessment recommendations; 1. Patient admitted with bilateral lower lobe pneumonia more pronounced left lower lobe, this is healthcare associated pneumonia. 2. History of PE currently on long-term anticoagulation. Continue current treatment. Add Levaquin 500 mg IV daily. Obtain follow-up chest x-ray in 48 hours. Consultation Date/Type/Reason Admit Date/Time October 17, 2016 at 14:08 Date of Consultation: October 18, 2016 Type of Consultation: Pulmonary Reason for Consultation Pulmonary consultations obtained for evaluation of bilateral pneumonia. Patient also has history of pulmonary embolism. History presenting any; patient is a pleasant 41-year-old F Syrian male who came into the emergency room yesterday with a few days history of shortness of breath cough and chest congestion upon evaluation a chest x-ray was done which is showing left lower lobe pneumonia. Patient subsequently also had a CTA of the chest which is showing bilateral pneumonia more pronounced in the left lower lobe. Patient is feeling slightly better still complains of chest congestion shortness of breath low-grade fever off and on. Denies any hemoptysis. Next Past medical history; 1. History of recurrent PE due to protein S deficiency. 2. Recent hospital stay over here. Medications; reviewed. Allergies; none. Social history; no show any smoking alcohol or drug abuse. Family history; patient is single. 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 Review of systems; denies any headache, seizures, visual changes. Any sinus symptoms. Complains of sharp left-sided chest pain with deep breathing and coughing. Denies any hemoptysis. Complains of sputum production. Denies any abdominal pain, nausea vomiting, edema, orthopnea. Denies any weight loss. Any skin changes. General exam; young male, awake alert currently in no distress. Past Surgical History Past Surgical Hx: no surgical history Social History Smoking Status: Light tobacco smoker Exam/Review of Systems Vital Signs Vitals Vital Signs Date Time Temp Pulse Resp B/P Pulse Ox O2 Delivery O2 Flow Rate FiO2 10/18/16 07:55 98.5 75 16 115/64 100 10/18/16 07:41 Nasal Cannula 1.0 10/17/16 11:59 21 Intake and Output 10/17/16 10/17/16 10/18/16 15:00 23:00 07:00 Intake Total 1530 ml 1530 ml Output Total 500 ml 1900 ml Balance 1030 ml -370 ml Exam HEENT examined; supple neck, no JVD. No lymphadenopathy. Midline trachea. No thyromegaly. Pharynx is clear. Patient has good dentition. Chest examination VA: Bibasilar crackles more pronounced in left lower lobe. Upper lobes are clear. S1-S2 audible, no murmurs. Regular rhythm. Abdomen examination; soft, nontender. No organomegaly. Bowel sounds audible. Extremity examination; no peripheral edema. BUSINESS ADMINISTRATION PROGRAM CHAIR examination; no focal deficit. Results Result Diagram: 10/18/1643 10/18/16 0543 Results 24 hrs Laboratory Tests Test 10/17/16 17:00 10/17/16 18:16 10/18/16 05:43 Urine Color LT. YELLOW Urine Clarity CLEAR Urine pH 6.5 Urine Specific Ione <=1.005 L Urine Ketones NEGATIVE Urine Nitrite NEGATIVE Urine Bilirubin NEGATIVE Urine Urobilinogen 0.2 E.U./dL Urine Leukocyte Esterase NEGATIVE Urine Hemoglobin NEGATIVE Urine Glucose NEGATIVE Urine Total Protein NEGATIVE Urine Opiates Screen POSITIVE Urine Barbiturates NEGATIVE Urine Amphetamines Screen NEGATIVE Urine Benzodiazepines Screen NEGATIVE Urine Cocaine Screen NEGATIVE Urine Cannabinoids NEGATIVE Lactic Acid Level 1.8 0.9 Iron Level 31 L Total Iron Binding Capacity 258 Percent Iron Saturation 12 L Ferritin 1100.0 H White Blood Count 5.4 Red Blood Count 3.80 L Hemoglobin 10.1 L Hematocrit 30.8 L Mean Corpuscular Volume 81.1 L Mean Corpuscular Hemoglobin 26.6 L Mean Corpuscular Hemoglobin Concent 32.8 Red Cell Distribution Width 13.4 Platelet Count 538 #H Mean Platelet Volume 8.7 Neutrophils % 64.4 Lymphocytes % 19.4 Monocytes % 12.3 H Eosinophils % 3.0 Basophils % 0.2 Nucleated Red Blood Cells % 0.0 Neutrophils # 3.5 Lymphocytes # 1.0 Monocytes # 0.7 Eosinophils # 0.2 Basophils # 0.0 Nucleated Red Blood Cells # 0.0 Prothrombin Time 18.2 #H Prothrombin Time Ratio 1.4 INR International Normalized Ratio 1.50 Activated Partial Thromboplast Time 32.1 Sodium Level 138 Potassium Level 4.3 Chloride Level 103 Carbon Dioxide Level 27 Anion Gap 12 Blood Urea Nitrogen 11 Creatinine 0.78 Glucose Level 103 Calcium Level 8.3 L Phosphorus Level 3.9 Magnesium Level 2.2 Medications Medications Current Medications Ondansetron HCl (Zofran Inj) 4 mg Q6H PRN IV NAUSEA AND/OR VOMITING; Start at 16:00 Acetaminophen (Tylenol Tab) 650 mg Q6H PRN PO PAIN LEVEL 1-3 OR FEVER; Start at 16:00 Acetaminophen/ Hydrocodone Bitart ([place] (5/325)) 1 tab Q6H PRN PO MODERATE PAIN LEVEL 4-6 Last administered on 10/18/16 11:24; Admin Dose 1 TAB; Start at 16:00 Hydromorphone HCl (Dilaudid) 0.5 mg Q4H PRN IV SEVERE PAIN LEVEL 7-10 Last administered on 10/18/16 06:46; Admin Dose 0.5 MG; Start 10/17/16 at 16:00 Magnesium Hydroxide (Milk Of Mag) 30 ml DAILY PRN PO CONSTIPATION; Start at 16:00 Bisacodyl (Dulcolax) 5 mg DAILY PRN PO CONSTIPATION; Start 10/17/16 at 16:00 Famotidine 20 mg 20 mg Q12 PO Last administered on 10/18/16 08:24; Admin Dose 20 MG; Start 10/17/16 at 21:00 Cefepime HCl 50 ml @ 100 mls/hr Q12 IVPB Last administered on 10/18/16 08:24 ; Admin Dose 100 MLS/HR; Start 10/17/16 at 21:00 Vancomycin HCl 250 ml @ 125 mls/hr Q8H IVPB Last administered on 10/18/16 11: 24; Admin Dose 125 MLS/HR; Start 10/17/16 at 20:00 Sodium Chloride (NS) 1,000 ml @ 100 mls/hr Q10H IV Last administered on 04:43; Admin Dose 100 MLS/HR; Start 10/17/16 at 16:00 Miscellaneous Information (*Rx Drug Level Order Reminder*) VANCOMYCIN TROUGH LEVEL... ONCE ONCE XX ; Start 10/18/16 at 19:00; Stop 10/18/16 at 19:01 Guaifenesin/ Dextromethorphan (Robitussin Dm Liquid Cup) 5 ml Q4H PRN PO COUGH Last administered on 10/18/16t 06:46; Admin Dose 5 ML; Start 10/17/16 at 21:00 MINDY FRAZIER October 18, 2016 12:34
[2016-10-18] MEDS: LEVOFLOXACIN 500MG/D5W (PMX) 100 ML IVPB SCH (13:49)
--- NOTE | 2016-10-18 15:06 | PN ---
Date/Time of Note Date/Time of Note DATE: 10/18/16 TIME: 14:58 Assessment/Plan VTE Prophylaxis VTE Prophylaxis Intervention: other Lines/Catheters IV Catheter Type (from [facility]): Peripheral IV Urinary Cath still in place: No Assessment/Plan Assessment/Plan 1. Bilateral pneumonia, consider healthcare acquired, on vanco, cefepime and levaquin. 2. Sepsis secondary to underlying pneumonia. No evidence of any septic shock. The patient will be adequately hydrated 3. Recent bilateral pulmonary embolism, on xarelto 4. Microcytic hypochromic anemia. Subjective 24 Hr Interval Summary Free Text/Dictation still cough with pleuritic chest pain on cough and deep breath Exam/Review of Systems Vital Signs Vitals Vital Signs Date Time Temp Pulse Resp B/P Pulse Ox O2 Delivery O2 Flow Rate FiO2 10/18/16 07:55 98.5 75 16 115/64 100 10/18/16 07:41 Nasal Cannula 1.0 10/17/16 11:59 21 Intake and Output 10/17/16 10/17/16 10/18/16 15:00 23:00 07:00 Intake Total 1530 ml 1530 ml Output Total 500 ml 1900 ml Balance 1030 ml -370 ml Exam Constitutional: alert, oriented, well developed Psych: nl mood/affect, no complaints Head: atraumatic, normocephalic Eyes: EOMI, PERRL, nl conjunctiva, nl lids ENMT: mucosa pink and moist, nl external ears & nose, nl lips & teeth, nl nasal mucosa & septum Neck: non-tender, supple Respiratory: clear to auscultation, normal air movement, No congested cough, No crackles/rales, No diminished breath sounds, No intercostal retraction, No labored breathing, No other, No respirations, No tactile fremitus, No wheezing Cardiovascular: nl pulses, regular rate and rhythm, No S3, No S4, No bruits, No diastolic murmur, No edema, No gallop, No irregular rhythm, No jugular venous distention (JVD), No murmurs/extra sounds, No other, No rub, No systolic murmur Gastrointestinal: nl liver, spleen, non-tender, No ascites, No bowel sounds, No distended, No firm, No hepatomegaly, No mass , No other, No rebound or guarding, No soft, No splenomegaly, No surgical scars , No tender Musculoskeletal: nl extremities to inspection Extremities: normal pulses, No calf tenderness, No clubbing, No cyanosis, No edema, No other, No palpable cord, No pitting pedal edema, No tenderness Neurological: 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 YELLOW Urine Clarity CLEAR Urine pH 6.5 Urine Specific [place] <=1.005 L Urine Ketones NEGATIVE Urine Nitrite NEGATIVE Urine Bilirubin NEGATIVE Urine Urobilinogen 0.2 E.U./dL Urine Leukocyte Esterase NEGATIVE Urine Hemoglobin NEGATIVE Urine Glucose NEGATIVE Urine Total Protein NEGATIVE Urine Opiates Screen POSITIVE Urine Barbiturates NEGATIVE Urine Amphetamines Screen NEGATIVE Urine Benzodiazepines Screen NEGATIVE Urine Cocaine Screen NEGATIVE Urine Cannabinoids NEGATIVE Lactic Acid Level 1.8 0.9 Iron Level 31 L Total Iron Binding Capacity 258 Percent Iron Saturation 12 L Ferritin 1100.0 H White Blood Count 5.4 Red Blood Count 3.80 L Hemoglobin 10.1 L Hematocrit 30.8 L Mean Corpuscular Volume 81.1 L Mean Corpuscular Hemoglobin 26.6 L Mean Corpuscular Hemoglobin Concent 32.8 Red Cell Distribution Width 13.4 Platelet Count 538 #H Mean Platelet Volume 8.7 Neutrophils % 64.4 Lymphocytes % 19.4 Monocytes % 12.3 H Eosinophils % 3.0 Basophils % 0.2 Nucleated Red Blood Cells % 0.0 Neutrophils # 3.5 Lymphocytes # 1.0 Monocytes # 0.7 Eosinophils # 0.2 Basophils # 0.0 Nucleated Red Blood Cells # 0.0 Prothrombin Time 18.2 #H Prothrombin Time Ratio 1.4 INR International Normalized Ratio 1.50 Activated Partial Thromboplast Time 32.1 Sodium Level 138 Potassium Level 4.3 Chloride Level 103 Carbon Dioxide Level 27 Anion Gap 12 Blood Urea Nitrogen 11 Creatinine 0.78 Glucose Level 103 Calcium Level 8.3 L Phosphorus Level 3.9 Magnesium Level 2.2 Medications Medications Current Medications Ondansetron HCl (Zofran Inj) 4 mg Q6H PRN IV NAUSEA AND/OR VOMITING; Start at 16:00 Acetaminophen (Tylenol Tab) 650 mg Q6H PRN PO PAIN LEVEL 1-3 OR FEVER; Start at 16:00 Acetaminophen/ Hydrocodone Bitart ([place] (5/325)) 1 tab Q6H PRN PO MODERATE PAIN LEVEL 4-6 Last administered on 10/18/16 11:24; Admin Dose 1 TAB; Start at 16:00 Hydromorphone HCl (Dilaudid) 0.5 mg Q4H PRN IV SEVERE PAIN LEVEL 7-10 Last administered on 10/18/16 13:54; Admin Dose 0.5 MG; Start 10/17/16 at 16:00 Magnesium Hydroxide (Milk Of Mag) 30 ml DAILY PRN PO CONSTIPATION; Start at 16:00 Bisacodyl (Dulcolax) 5 mg DAILY PRN PO CONSTIPATION; Start 10/17/16 at 16:00 Famotidine 20 mg 20 mg Q12 PO Last administered on 10/18/16 08:24; Admin Dose 20 MG; Start 10/17/16 at 21:00 Cefepime HCl 50 ml @ 100 mls/hr Q12 IVPB Last administered on 10/18/16 08:24 ; Admin Dose 100 MLS/HR; Start 10/17/16 at 21:00 Vancomycin HCl 250 ml @ 125 mls/hr Q8H IVPB Last administered on 10/18/16 11: 24; Admin Dose 125 MLS/HR; Start 10/17/16 at 20:00 Sodium Chloride (NS) 1,000 ml @ 100 mls/hr Q10H IV Last administered on 04:43; Admin Dose 100 MLS/HR; Start 10/17/16 at 16:00 Miscellaneous Information (*Rx Drug Level Order Reminder*) VANCOMYCIN TROUGH LEVEL... ONCE ONCE XX ; Start 10/18/16 at 19:00; Stop 10/18/16 at 19:01 Guaifenesin/ Dextromethorphan 5 ml 5 ml Q4H PRN PO COUGH Last administered on 06:46; Admin Dose 5 ML; Start 10/17/16 at 21:00 Levofloxacin/ Dextrose (Levaquin 500mg/ D5W 100 ml (Pmx)) 100 ml @ 100 mls/hr Q24H IVPB Last administered on 10/18/16t 13:49; Admin Dose 100 MLS/HR; Start at 12:30 TING LINO MD October 18, 2016 15:06
[2016-10-18 20:02] VITALS: BP 147/67; RESP 19
[2016-10-18] MEDS: VANCOMYCIN 1.25 GM in SOD CHLORIDE 0.9% 250 ML IVPB SCH (21:25)
[2016-10-19] MEDS: HYDROmorphONE 1 MG/ML SYG IV PRN ×6 (01:21→22:12)
[2016-10-19] MEDS: GUAIFENESIN/DM 5ML CUP PO PRN ×6 (01:21→22:12)
[2016-10-19] MEDS: SOD CHLORIDE 0.9% 1,000 ML IV SCH ×2 (03:43→17:20)
[2016-10-19] MEDS: VANCOMYCIN 1.25 GM in SOD CHLORIDE 0.9% 250 ML IVPB SCH ×3 (05:21→22:12)
[2016-10-19 08:05] VITALS: BP 110/69; RESP 19
[2016-10-19] MEDS: FAMOTIDINE 20 MG TAB PO SCH ×2 (09:00→20:13)
[2016-10-19] MEDS: RIVAROXABAN 15 MG TABLET PO SCH ×2 (09:00→17:43)
[2016-10-19] MEDS: CEFEPIME 2GM/50 ML (PMX) 50 ML IVPB SCH ×2 (09:02→20:13)
[2016-10-19] MEDS: ALBUTEROL 0.083% (NEB) 2.5 MG/3 ML AMP HHN SCH ×3 (09:53→22:09)
[2016-10-19] MEDS: HYDROCODONE/APAP (5/325) TAB PO PRN ×2 (10:34→20:14)
[2016-10-19] MEDS: LEVOFLOXACIN 500MG/D5W (PMX) 100 ML IVPB SCH (11:31)
--- NOTE | 2016-10-19 11:42 | CONS ---
Date/Time of Note Date/Time of Note DATE: 10/19/16 TIME: 11:40 Assessment/Plan Assessment/Plan Additional Assessment/Plan Assessment recommendations; 1. Patient admitted with bilateral lower lobe pneumonia currently on appropriate antibiotic regimen. 2. History of PE, most recent CTA of the chest is showing improvement in clot burden. Continue current treatment. Will obtain follow-up chest x-ray tomorrow morning. Consultation Date/Type/Reason Admit Date/Time October 17, 2016 at 14:08 Initial Consult Date 10/18/16 Type of Consultation: Pulmonary 24 HR Interval Summary Free Text/Dictation Patient's condition is slightly improved. She complains of shortness of breath and chest congestion. Denies any chest pain. General exam; young male, awake alert currently in no distress. Exam/Review of Systems Vital Signs Vitals Vital Signs Date Time Temp Pulse Resp B/P Pulse Ox O2 Delivery O2 Flow Rate FiO2 10/19/16 09:56 81 18 99 21 10/19/16 08:05 98.4 110/69 10/18/16 20:00 Nasal Cannula 2.0 Intake and Output 10/18/16 10/18/16 10/19/16 15:00 23:00 07:00 Intake Total 400 ml 1630 ml 790 ml Output Total 1500 ml 1400 ml Balance 400 ml 130 ml -610 ml Exam HEENT exam; supple neck, no JVD. No lymphadenopathy. Midline trachea. No thyromegaly. Pharynx is clear. Patient has good dentition. Bowel is audible Chest examination; bibasilar crackles, more pronounced in left lower lobe. S1- S2 audible, no murmurs. Regular rhythm. Abdomen examination; soft, nondistended no organomegaly Extremity exam; no peripheral edema. Pulses 1+ bilaterally. No clubbing. EMERGENCY ROOM SPECIALIST examination; no focal deficit. Results Result Diagram: 10/18/16 0543 10/18/16 0543 Results 24 hrs Laboratory Tests Test 10/18/16 18:50 10/19/16 08:10 Vancomycin Level Trough 9.9 L Lab Scanned Report REFERENCE LAB Medications Medications Current Medications Ondansetron HCl (Zofran Inj) 4 mg Q6H PRN IV NAUSEA AND/OR VOMITING; Start at 16:00 Acetaminophen (Tylenol Tab) 650 mg Q6H PRN PO PAIN LEVEL 1-3 OR FEVER; Start at 16:00 Acetaminophen/ Hydrocodone Bitart ([place] (5/325)) 1 tab Q6H PRN PO MODERATE PAIN LEVEL 4-6 Last administered on 10/19/16 10:34; Admin Dose 1 TAB; Start at 16:00 Hydromorphone HCl (Dilaudid) 0.5 mg Q4H PRN IV SEVERE PAIN LEVEL 7-10 Last administered on 10/19/16 09:26; Admin Dose 0.5 MG; Start 10/17/16 at 16:00 Magnesium Hydroxide (Milk Of Mag) 30 ml DAILY PRN PO CONSTIPATION; Start at 16:00 Bisacodyl (Dulcolax) 5 mg DAILY PRN PO CONSTIPATION; Start 10/17/16 at 16:00 Famotidine 20 mg 20 mg Q12 PO Last administered on 10/19/16 09:00; Admin Dose 20 MG; Start 10/17/16 at 21:00 Cefepime HCl 50 ml @ 100 mls/hr Q12 IVPB Last administered on 10/19/16 09:02 ; Admin Dose 100 MLS/HR; Start 10/17/16 at 21:00 Sodium Chloride (NS) 1,000 ml @ 100 mls/hr Q10H IV Last administered on 03:43; Admin Dose 100 MLS/HR; Start 10/17/16 at 16:00 Guaifenesin/ Dextromethorphan 5 ml 5 ml Q4H PRN PO COUGH Last administered on 09:26; Admin Dose 5 ML; Start 10/17/16 at 21:00 Levofloxacin/ Dextrose 100 ml @ 100 mls/hr Q24H IVPB Last administered on 10/19 11:31; Admin Dose 100 MLS/HR; Start 10/18/16 at 12:30 Vancomycin HCl/ Sodium Chloride (Vancocin/NS) 250 ml @ 83.333 mls/ hr Q8H IVPB Last administered on 10/19/16 05:21; Admin Dose 83.333 MLS/HR; Start at 21:00 Miscellaneous Information (*Rx Drug Level Order Reminder*) VANCOMYCIN TROUGH AT 0,400 ONCE ONCE XX ; Start 10/20/16 at 04:00; Stop 10/20/16 at 04:01 MINDY FRAZIER October 19, 2016 11:42
--- NOTE | 2016-10-19 15:45 | PN ---
Date/Time of Note Date/Time of Note DATE: 10/19/16 TIME: 15:43 Assessment/Plan VTE Prophylaxis VTE Prophylaxis Intervention: other Lines/Catheters IV C[facility]ter Type (from [facility]): Peripheral IV Urinary Cath still in place: No Assessment/Plan Assessment/Plan 1. Bilateral pneumonia, consider healthcare acquired, on vanco, cefepime and levaquin. 2. Sepsis secondary to underlying pneumonia. No evidence of any septic shock. The patient will be adequately hydrated 3. Recent bilateral pulmonary embolism, on xarelto 4. Microcytic hypochromic anemia. Subjective 24 Hr Interval Summary Free Text/Dictation still with pleuritic chest pain. afebrile Exam/Review of Systems Vital Signs Vitals Vital Signs Date Time Temp Pulse Resp B/P Pulse Ox O2 Delivery O2 Flow Rate FiO2 10/19/16 09:56 81 18 99 21 10/19/16 08:05 98.4 110/69 10/18/16 20:00 Nasal Cannula 2.0 Intake and Output 10/18/16 10/18/16 10/19/16 15:00 23:00 07:00 Intake Total 400 ml 1630 ml 790 ml Output Total 1500 ml 1400 ml Balance 400 ml 130 ml -610 ml Exam Constitutional: alert, oriented, well developed Psych: nl mood/affect, no complaints Head: atraumatic, normocephalic Eyes: EOMI, PERRL, nl conjunctiva, nl lids, nl sclera ENMT: mucosa pink and moist, nl external ears & nose, nl lips & teeth, nl nasal mucosa & septum Neck: non-tender, supple Respiratory: clear to auscultation, normal air movement, No congested cough, No crackles/rales, No diminished breath sounds, No intercostal retraction, No labored breathing, No other, No respirations, No tactile fremitus, No wheezing Cardiovascular: nl pulses, regular rate and rhythm, No S3, No S4, No bruits, No diastolic murmur, No edema, No gallop, No irregular rhythm, No jugular venous distention (JVD), No murmurs/extra sounds, No other, No rub, No systolic murmur Gastrointestinal: nl liver, spleen, non-tender, soft, No ascites, No bowel sounds, No distended, No firm, No hepatomegaly, No mass , No other, No rebound or guarding, No splenomegaly, No surgical scars, No tender Musculoskeletal: nl extremities to inspection Extremities: normal pulses, No calf tenderness, No clubbing, No cyanosis, No edema, No other, No palpable cord, No pitting pedal edema, No tenderness 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, nl mental status, nl speech, nl strength Skin: nl turgor Lymph: nl lymph nodes Results Result Diagram: 10/18/16 0543 10/18/16 0543 Results 24 hrs Laboratory Tests Test 10/18/16 18:50 10/19/16 08:10 Vancomycin Level Trough 9.9 L Lab Scanned Report REFERENCE LAB Medications Medications Current Medications Ondansetron HCl (Zofran Inj) 4 mg Q6H PRN IV NAUSEA AND/OR VOMITING; Start at 16:00 Acetaminophen (Tylenol Tab) 650 mg Q6H PRN PO PAIN LEVEL 1-3 OR FEVER; Start at 16:00 Acetaminophen/ Hydrocodone Bitart ([place] (5/325)) 1 tab Q6H PRN PO MODERATE PAIN LEVEL 4-6 Last administered on 10/19/16 10:34; Admin Dose 1 TAB; Start at 16:00 Hydromorphone HCl (Dilaudid) 0.5 mg Q4H PRN IV SEVERE PAIN LEVEL 7-10 Last administered on 10/19/16 13:55; Admin Dose 0.5 MG; Start 10/17/16 at 16:00 Magnesium Hydroxide (Milk Of Mag) 30 ml DAILY PRN PO CONSTIPATION; Start at 16:00 Bisacodyl (Dulcolax) 5 mg DAILY PRN PO CONSTIPATION; Start 10/17/16 at 16:00 Famotidine 20 mg 20 mg Q12 PO Last administered on 10/19/16 09:00; Admin Dose 20 MG; Start 10/17/16 at 21:00 Cefepime HCl 50 ml @ 100 mls/hr Q12 IVPB Last administered on 10/19/16 09:02 ; Admin Dose 100 MLS/HR; Start 10/17/16 at 21:00 Sodium Chloride (NS) 1,000 ml @ 100 mls/hr Q10H IV Last administered on 03:43; Admin Dose 100 MLS/HR; Start 10/17/16 at 16:00 Guaifenesin/ Dextromethorphan 5 ml 5 ml Q4H PRN PO COUGH Last administered on 13:55; Admin Dose 5 ML; Start 10/17/16 at 21:00 Levofloxacin/ Dextrose 100 ml @ 100 mls/hr Q24H IVPB Last administered on 10/19 11:31; Admin Dose 100 MLS/HR; Start 10/18/16 at 12:30 Vancomycin HCl/ Sodium Chloride (Vancocin/NS) 250 ml @ 83.333 mls/ hr Q8H IVPB Last administered on 10/19/16 12:56; Admin Dose 83.333 MLS/HR; Start at 21:00 Miscellaneous Information (*Rx Drug Level Order Reminder*) VANCOMYCIN TROUGH AT 0,400 ONCE ONCE XX ; Start 10/20/16 at 04:00; Stop 10/20/16 at 04:01 TING LINO MD October 19, 2016 15:45
[2016-10-19 20:17] VITALS: BP 112/57; RESP 17
[2016-10-20] MEDS: HYDROmorphONE 1 MG/ML SYG IV PRN ×5 (02:38→22:34)
[2016-10-20] MEDS: GUAIFENESIN/DM 5ML CUP PO PRN ×3 (02:38→22:33)
[2016-10-20] MEDS: SOD CHLORIDE 0.9% 1,000 ML IV SCH ×2 (03:58→05:32)
[2016-10-20] MEDS: VANCOMYCIN 1.25 GM in SOD CHLORIDE 0.9% 250 ML IVPB SCH (05:32)
[2016-10-20] MEDS: ALBUTEROL 0.083% (NEB) 2.5 MG/3 ML AMP HHN SCH ×3 (07:50→21:28)
[2016-10-20 08:04] VITALS: BP 120/75; RESP 18
[2016-10-20] MEDS: FAMOTIDINE 20 MG TAB PO SCH ×2 (08:27→20:20)
[2016-10-20] MEDS: RIVAROXABAN 15 MG TABLET PO SCH ×2 (08:27→17:52)
[2016-10-20] MEDS: CEFEPIME 2GM/50 ML (PMX) 50 ML IVPB SCH (08:27)
--- NOTE | 2016-10-20 09:28 | RADRPT ---
PROCEDURE: XR Chest 1 View. CLINICAL INDICATION: Shortness of breath. TECHNIQUE: AP view of the chest was obtained. COMPARISON: October 17, [address] October 17, 2016 FINDINGS: The cardiomediastinal silhouette is within normal limits. The lungs are hypoinflated. Patchy left l ower lobe infiltrates have decreased. Mild residual remains. Atelectasis is seen at the right lung base. Blunting of the left costophrenic angle is noted. The osseous structures appear unchanged. IMPRESSION: Interval decrease in patchy left lower lobe infiltrates. Mild residual, combined with small pleural effusion remains. Atelectasis at the right lung base. RPTAT: AA .Hero Mendes MD, Date Time Electronically viewed and signed by .Hero Mendes MD, MD on 10/20/2016 09:28 .P/
[2016-10-20] MEDS: HYDROCODONE/APAP (5/325) TAB PO PRN (11:16)
[2016-10-20] MEDS: LEVOFLOXACIN 500MG/D5W (PMX) 100 ML IVPB SCH (14:08)
--- NOTE | 2016-10-20 14:59 | CONS ---
Date/Time of Note Date/Time of Note DATE: 10/20/16 TIME: 14:58 Consult Date/Type/Reason Admit Date/Time October 17, 2016 at 14:08 Initial Consult Date 10/18/16 Type of Consultation: Pulmonary Subjective Patient feels a little better today less wheezing less shortness of breath Objective Vital Signs Date Time Temp Pulse Resp B/P Pulse Ox O2 Delivery O2 Flow Rate FiO2 10/20/16 13:48 76 18 98 21 10/20/16 08:04 99.0 120/75 10/18/16 20:00 Nasal Cannula 2.0 Intake and Output 10/19/16 10/19/16 10/20/16 14:59 22:59 06:59 Intake Total 700 ml 1960 ml 1710 ml Output Total 1100 ml 1800 ml Balance 700 ml 860 ml -90 ml Exam GENERAL: VITAL SIGNS: per chart NECK: Supple. No JVD or lymphadenopathy. CARDIAC EXAM: S1, S2. No added sounds or murmurs. CHEST: Diminished air entry bilaterally decreased left base ABDOMEN: Soft, nontender. No guarding or rebound. EXTREMITIES: No cyanosis, clubbing or edema. NEUROLOGIC: Generalized weakness. No focal deficits. Results/Medications Result Diagram: 10/18/16 0543 10/18/16 0543 Results 24 hrs Laboratory Tests Test 10/20/16 03:47 Vancomycin Level Trough 20.5 *H Medications Current Medications Ondansetron HCl (Zofran Inj) 4 mg Q6H PRN IV NAUSEA AND/OR VOMITING; Start at 16:00 Acetaminophen (Tylenol Tab) 650 mg Q6H PRN PO PAIN LEVEL 1-3 OR FEVER; Start at 16:00 Acetaminophen/ Hydrocodone Bitart ([place] (5/325)) 1 tab Q6H PRN PO MODERATE PAIN LEVEL 4-6 Last administered on 10/20/16 11:16; Admin Dose 1 TAB; Start at 16:00 Hydromorphone HCl (Dilaudid) 0.5 mg Q4H PRN IV SEVERE PAIN LEVEL 7-10 Last administered on 10/20/16 14:08; Admin Dose 0.5 MG; Start 10/17/16 at 16:00 Magnesium Hydroxide (Milk Of Mag) 30 ml DAILY PRN PO CONSTIPATION; Start at 16:00 Bisacodyl (Dulcolax) 5 mg DAILY PRN PO CONSTIPATION; Start 10/17/16 at 16:00 Famotidine 20 mg 20 mg Q12 PO Last administered on 10/20/16 08:27; Admin Dose 20 MG; Start 10/17/16 at 21:00 Cefepime HCl 50 ml @ 100 mls/hr Q12 IVPB Last administered on 10/20/16 08:27 ; Admin Dose 100 MLS/HR; Start 10/17/16 at 21:00 Sodium Chloride (NS) 1,000 ml @ 100 mls/hr Q10H IV Last administered on 05:32; Admin Dose 100 MLS/HR; Start 10/17/16 at 16:00 Guaifenesin/ Dextromethorphan 5 ml 5 ml Q4H PRN PO COUGH Last administered on 08:27; Admin Dose 5 ML; Start 10/17/16 at 21:00 Levofloxacin/ Dextrose 100 ml @ 100 mls/hr Q24H IVPB Last administered on 10/20 14:08; Admin Dose 100 MLS/HR; Start 10/18/16 at 12:30 Vancomycin HCl (Vancocin) 250 ml @ 125 mls/hr Q8H IVPB ; Start 10/20/16 at 16: 00 Miscellaneous Information (*Rx Drug Level Order Reminder*) VANCO TROUGH @ 1, 500 ON... ONCE ONCE XX ; Start 10/21/16 at 15:00; Stop 10/21/16 at 15:01 Assessment/Plan Chief Complaint/Hosp Course Assessment 1. Acute pulmonary embolus on Xarelto 2. Left lower lobe pneumonia possible pulmonary infarct 3. Significant bronchospasm Plan 1. Continue anticoagulation with Xarelto 2. Continues multiple antibiotics consider de-escalation 3. DC IV fluids 4. Encourage ambulation Problems: DARRELL MOHAN MD, [facility] October 20, 2016 14:59
[2016-10-20] MEDS ORDERED: VANCOMYCIN 1 GM in NS 250 ML IVPB SCH (16:00)
--- NOTE | 2016-10-20 16:06 | PN ---
Date/Time of Note Date/Time of Note DATE: 10/20/16 TIME: 16:04 Assessment/Plan VTE Prophylaxis VTE Prophylaxis Intervention: other Lines/Catheters [facility] Peripheral IV Urinary Cath still in place: No Assessment/Plan Assessment/Plan 1. Bilateral pneumonia, consider healthcare acquired, on vanco, cefepime and levaquin, improving both clinically and radiologically on CXR 2. Sepsis secondary to underlying pneumonia. No evidence of any septic shock. The patient will be adequately hydrated 3. Recent bilateral pulmonary embolism, on xarelto 4. Microcytic hypochromic anemia. Subjective 24 Hr Interval Summary Free Text/Dictation feels better with less cough and shortness of breath. afebrile Exam/Review of Systems Vital Signs Vitals Vital Signs Date Time Temp Pulse Resp B/P Pulse Ox O2 Delivery O2 Flow Rate FiO2 10/20/16 13:48 76 18 98 21 10/20/16 08:04 99.0 120/75 10/18/16 20:00 Nasal Cannula 2.0 Intake and Output 10/19/16 10/19/16 10/20/16 15:00 23:00 07:00 Intake Total 950 ml 1710 ml 1710 ml Output Total 1100 ml 1800 ml Balance 950 ml 610 ml -90 ml Exam Constitutional: alert, oriented, well developed Psych: nl mood/affect, no complaints Head: atraumatic, normocephalic Eyes: EOMI, PERRL, nl conjunctiva, nl lids ENMT: nl external ears & nose, nl lips & teeth, nl nasal mucosa & septum Neck: non-tender, supple Respiratory: clear to auscultation, normal air movement, No crackles/rales, No diminished breath sounds, No intercostal retraction, No labored breathing, No other, No respirations, No tactile fremitus, No wheezing Cardiovascular: nl pulses, regular rate and rhythm, No S3, No S4, No bruits, No diastolic murmur, No edema, No gallop, No irregular rhythm, No jugular venous distention (JVD), No murmurs/extra sounds, No other, No rub, No systolic murmur Gastrointestinal: nl liver, spleen, non-tender, soft, No ascites, No bowel sounds, No distended, No firm, No hepatomegaly, No mass , No other, No rebound or guarding, No splenomegaly, No surgical scars, No tender Musculoskeletal: nl extremities to inspection Extremities: normal pulses, No calf tenderness, No clubbing, No cyanosis, No edema, No other, No palpable cord, No pitting pedal edema, No tenderness Neurological: CUSTOMS IMPORT SPECIALIST II-XII intact, nl mental status, nl speech, nl strength Skin: nl turgor Lymph: nl lymph nodes Results Result Diagram: 10/18/16 0543 10/18/16 0543 Results 24 hrs Laboratory Tests Test 10/20/16 03:47 Vancomycin Level Trough 20.5 *H Medications Medications Current Medications Ondansetron HCl (Zofran Inj) 4 mg Q6H PRN IV NAUSEA AND/OR VOMITING; Start at 16:00 Acetaminophen (Tylenol Tab) 650 mg Q6H PRN PO PAIN LEVEL 1-3 OR FEVER; Start at 16:00 Acetaminophen/ Hydrocodone Bitart ([place] (5/325)) 1 tab Q6H PRN PO MODERATE PAIN LEVEL 4-6 Last administered on 10/20/16 11:16; Admin Dose 1 TAB; Start at 16:00 Hydromorphone HCl (Dilaudid) 0.5 mg Q4H PRN IV SEVERE PAIN LEVEL 7-10 Last administered on 10/20/16 14:08; Admin Dose 0.5 MG; Start 10/17/16 at 16:00 Magnesium Hydroxide (Milk Of Mag) 30 ml DAILY PRN PO CONSTIPATION; Start at 16:00 Bisacodyl (Dulcolax) 5 mg DAILY PRN PO CONSTIPATION; Start 10/17/16 at 16:00 Famotidine (Pepcid) 20 mg Q12 PO Last administered on 10/20/16 08:27; Admin Dose 20 MG; Start 10/17/16 at 21:00 Guaifenesin/ Dextromethorphan 5 ml 5 ml Q4H PRN PO COUGH Last administered on 08:27; Admin Dose 5 ML; Start 10/17/16 at 21:00 Levofloxacin/ Dextrose (Levaquin 500mg/ D5W 100 ml (Pmx)) 100 ml @ 100 mls/hr Q24H IVPB Last administered on 10/20/16 14:08; Admin Dose 100 MLS/HR; Start at 12:30 TING LINO MD October 20, 2016 16:06
[2016-10-20 21:49] VITALS: BP 116/59; RESP 19
[2016-10-21] MEDS: HYDROmorphONE 1 MG/ML SYG IV PRN ×5 (04:43→22:33)
[2016-10-21] MEDS: GUAIFENESIN/DM 5ML CUP PO PRN ×5 (04:43→22:34)
[2016-10-21 05:07] LABS: ADD SCAN DIFF NO; BASOPHILS % 0.2 % (0.0-2.0); EOSINOPHILS # 0.2 10^3/ul (0.0-0.5); EOSINOPHILS % 3.2 % (0.0-7.0); HEMATOCRIT 33.7 % (42.0-52.0); HEMOGLOBIN 11.2 g/dl (14.0-18.0); LYMPHOCYTES # 0.9 10^3/ul (0.8-2.9); LYMPHOCYTES % 16.2 % (15.0-51.0); MEAN CORPUSCULAR HEMOGLOBIN 26.1 pg (29.0-33.0); MEAN CORPUSCULAR HGB CONC 33.2 g/dl (32.0-37.0); MEAN CORPUSCULAR VOLUME 78.6 fl (82.0-101.0); MEAN PLATELET VOLUME 8.7 fl (7.4-10.4); MONOCYTE # 0.5 10^3/ul (0.3-0.9); NEUTROPHIL # 3.7 10^3/ul (1.6-7.5); NEUTROPHILS % 69.8 % (39.0-77.0); PLATELET COUNT 645 10^3/UL (140-415); RED BLOOD COUNT 4.29 10^6/ul (4.70-6.10); RED CELL DISTRIBUTION WIDTH 13.2 % (11.5-14.5); WHITE BLOOD COUNT 5.3 10^3/ul (4.8-10.8)
[2016-10-21 05:52] LABS: CALCIUM 9.1 mg/dl (8.4-10.2); CREATININE 0.79 mg/dl (0.61-1.24); PHOSPHORUS 4.7 mg/dl (2.5-4.9); POTASSIUM 4.3 mmol/L (3.5-5.1)
[2016-10-21 07:15] VITALS: BP 118/56; RESP 18
[2016-10-21] MEDS: ALBUTEROL 0.083% (NEB) 2.5 MG/3 ML AMP HHN SCH ×3 (08:00→19:10)
[2016-10-21] MEDS: FAMOTIDINE 20 MG TAB PO SCH ×2 (08:46→20:26)
[2016-10-21] MEDS: RIVAROXABAN 15 MG TABLET PO SCH ×2 (08:46→17:12)
--- NOTE | 2016-10-21 11:28 | RADRPT ---
PROCEDURE: XR Chest. CLINICAL INDICATION: Pneumonia. TECHNIQUE: AP view of the chest was obtained. COMPARISON: Multiple prior exams including most recent on 10/20/2016. FINDINGS: The cardiomediastinal silhouette is within normal limits. There is continued interval improvement of the left lower lobe airspace disease, with residual mild hazy opacification in the left lower lobe. The right lung is normally aerated. No signs of pleural fluid or pneumothorax are seen. The osseou s structures and soft tissues are unremarkable. IMPRESSION: 1. Continued interval improved left lower lobe elsewhere space disease with residual hazy opacifica tion. RPTAT: HGAS .Victor M Naqvi MD, MD Date Time Electronically viewed and signed by .Victor M Naqvi MD, on 10/21/2016 11:28 .S/
[2016-10-21] MEDS: LEVOFLOXACIN 500MG/D5W (PMX) 100 ML IVPB SCH (12:22)
[2016-10-21] MEDS: HYDROCODONE/APAP (5/325) TAB PO PRN ×2 (12:24→20:26)
--- NOTE | 2016-10-21 13:14 | CONS ---
Date/Time of Note Date/Time of Note DATE: 10/21/16 TIME: 13:12 Assessment/Plan Assessment/Plan Additional Assessment/Plan Chest x-ray was reviewed from today which is showing marked improvement in bibasilar pneumonia. Next Assessment recommendations; 1. Patient admitted for bilateral lower lobe pneumonia with marked clinical and radiological improvement. 2. History of recent DVT and PE with interval improvement as well based upon most recent CTA of the chest. Patient maintained on chronic long-term anticoagulation. Continue current treatment for now, anticipate discharge in 24 hours. Consultation Date/Type/Reason Admit Date/Time October 17, 2016 at 14:08 Initial Consult Date 10/18/16 Type of Consultation: Pulmonary/internal medicine 24 HR Interval Summary Free Text/Dictation Patient condition is stable. Denies any shortness of breath, complains of scant cough. Denies wheezing, fever chills. General exam; young male, awake alert currently in no distress. Exam/Review of Systems Vital Signs Vitals Vital Signs Date Time Temp Pulse Resp B/P Pulse Ox O2 Delivery O2 Flow Rate FiO2 10/21/16 07:15 99.0 79 18 118/56 98 10/20/16 21:28 21 10/18/16 20:00 Nasal Cannula 2.0 Intake and Output 10/20/16 10/20/16 10/21/16 15:00 23:00 07:00 Intake Total 300 ml 1640 ml 770 ml Output Total 2100 ml 2200 ml Balance 300 ml -460 ml -1430 ml Exam H EENT exam is; supple neck, no JVD. No lymphadenopathy. Midline trachea. No thyromegaly. Pharynx is clear. Patient has good dentition. Chest examination; clear to auscultation. S1-S2 audible, no murmurs. Regular rhythm. Abdomen examination; soft, non-distended. No organomegaly. Bowel sounds audible. Extremity exam is; no peripheral edema. Pulses 1+ bilaterally. CHECK SERVICES CLERK examination; no focal deficit. Results Result Diagram: 10/21/160 10/21/16439 Results 24 hrs Laboratory Tests Test 10/21/16 04:40 White Blood Count 5.3 Red Blood Count 4.29 L Hemoglobin 11.2 L Hematocrit 33.7 L Mean Corpuscular Volume 78.6 L Mean Corpuscular Hemoglobin 26.1 L Mean Corpuscular Hemoglobin Concent 33.2 Red Cell Distribution Width 13.2 Platelet Count 645 H Mean Platelet Volume 8.7 Neutrophils % 69.8 Lymphocytes % 16.2 Monocytes % 10.0 Eosinophils % 3.2 Basophils % 0.2 Nucleated Red Blood Cells % 0.0 Neutrophils # 3.7 Lymphocytes # 0.9 Monocytes # 0.5 Eosinophils # 0.2 Basophils # 0.0 Nucleated Red Blood Cells # 0.0 Sodium Level 139 Potassium Level 4.3 Chloride Level 104 Carbon Dioxide Level 27 Anion Gap 12 Blood Urea Nitrogen 10 Creatinine 0.79 Glucose Level 117 Calcium Level 9.1 Phosphorus Level 4.7 Magnesium Level 2.0 Medications Medications Current Medications Ondansetron HCl (Zofran Inj) 4 mg Q6H PRN IV NAUSEA AND/OR VOMITING; Start at 16:00 Acetaminophen (Tylenol Tab) 650 mg Q6H PRN PO PAIN LEVEL 1-3 OR FEVER; Start at 16:00 Acetaminophen/ Hydrocodone Bitart ([place] (5/325)) 1 tab Q6H PRN PO MODERATE PAIN LEVEL 4-6 Last administered on 10/21/16 12:24; Admin Dose 1 TAB; Start at 16:00 Hydromorphone HCl (Dilaudid) 0.5 mg Q4H PRN IV SEVERE PAIN LEVEL 7-10 Last administered on 10/21/16 08:52; Admin Dose 0.5 MG; Start 10/17/16 at 16:00 Magnesium Hydroxide (Milk Of Mag) 30 ml DAILY PRN PO CONSTIPATION; Start at 16:00 Bisacodyl (Dulcolax) 5 mg DAILY PRN PO CONSTIPATION; Start 10/17/16 at 16:00 Famotidine (Pepcid) 20 mg Q12 PO Last administered on 10/21/16 08:46; Admin Dose 20 MG; Start 10/17/16 at 21:00 Guaifenesin/ Dextromethorphan 5 ml 5 ml Q4H PRN PO COUGH Last administered on 08:53; Admin Dose 5 ML; Start 10/17/16 at 21:00 Levofloxacin/ Dextrose (Levaquin 500mg/ D5W 100 ml (Pmx)) 100 ml @ 100 mls/hr Q24H IVPB Last administered on 10/21/16 12:22; Admin Dose 100 MLS/HR; Start at 12:30 MINDY FRAZIER October 21, 2016 13:14
--- NOTE | 2016-10-21 14:09 | RADRPT ---
PROCEDURE: Right upper extremity venous ultrasound CLINICAL INDICATION: Right arm pain and swelling, deep venous thrombosis TECHNIQUE: Hines scale, color doppler, spectral doppler ultrasound imaging of the venous system of the right upper extremity. Augmentation maneuvers were utilized. COMPARISON: No prior studies are available for comparison. FINDINGS: RIGHT: Internal jugular vein: Patent. Subclavian vein: Patent. Axillary vein: Patent. Brachial vein: Patent. Basilic vein: Patent. Cephalic vein: Thrombus is present in the upper arm and a humeral fossa. Radial vein: Patent. Ulnar vein: Patent. IMPRESSION: Superficial venous thrombosis of the cephalic vein in the upper arm and antecubital fossa. No evidence of a deep vein thrombosis involving the right upper extremity. RPTAT: AADD .Haider Veras MD, Date Time Electronically viewed and signed by .Haider Veras MD, on 10/21/2016 14:09 .B/
[2016-10-21] MEDS: CLOTRIMAZOLE 1% 30 GM CR TOP SCH ×2 (17:12→22:33)
[2016-10-21 20:35] VITALS: BP 117/64; RESP 20
[2016-10-22] MEDS: HYDROmorphONE 1 MG/ML SYG IV PRN ×5 (02:59→22:29)
[2016-10-22 07:10] VITALS: BP 107/57; RESP 16
[2016-10-22] MEDS: ALBUTEROL 0.083% (NEB) 2.5 MG/3 ML AMP HHN SCH ×3 (08:00→19:29)
[2016-10-22] MEDS: FAMOTIDINE 20 MG TAB PO SCH ×2 (08:33→20:41)
[2016-10-22] MEDS: CLOTRIMAZOLE 1% 30 GM CR TOP SCH ×2 (08:33→20:41)
[2016-10-22] MEDS: RIVAROXABAN 15 MG TABLET PO SCH ×2 (08:33→17:39)
--- NOTE | 2016-10-22 10:43 | CONS ---
Date/Time of Note Date/Time of Note DATE: 10/22/16 TIME: 10:41 Assessment/Plan Assessment/Plan Additional Assessment/Plan Assessment recommendations; next 1. Patient admitted with left lower lobe pneumonia with marked clinical and radiological improvement. Currently on appropriate antibiotic regimen. 2. Bilateral PEs, currently on long-term anticoagulant. With the previous history of PE as well. 3. Superficial venous thrombosis involving the right arm. Continue current treatment. Continue warm compresses 4 times daily. Patient will be reevaluated in 24 hours for improvement, if he is significantly improved he likely would be discharged home. Consultation Date/Type/Reason Admit Date/Time October 17, 2016 at 14:08 Initial Consult Date 10/18/16 Type of Consultation: Pulmonary/internal medicine 24 HR Interval Summary Free Text/Dictation Patient is reporting markedly improved shortness of breath. Denies any chest pain, coughing wheezing. But complains of right arm pain due to superficial venous thrombosis at the previous intravenous site. Patient has been getting warm compresses with some interval improvement. General exam; young male, awake alert currently in no distress. Exam/Review of Systems Vital Signs Vitals Vital Signs Date Time Temp Pulse Resp B/P Pulse Ox O2 Delivery O2 Flow Rate FiO2 10/22/16 07:10 99.5 72 16 107/57 98 10/21/16 19:10 21 10/18/16 20:00 Nasal Cannula 2.0 Intake and Output 10/21/16 10/21/16 10/22/16 15:00 23:00 07:00 Intake Total 100 ml 800 ml Output Total 900 ml Balance 100 ml -100 ml Exam HEENT examined; supple neck, no JVD no lymphadenopathy midline trachea no thyromegaly pharynx is clear. Patient has fair dentition. Chest examined; clear to ulceration. S1-S2 audible, no murmur. Regular rhythm. Abdomen examination; soft, nontender. No organomegaly. Bowel sounds audible. Extremity exam; no peripheral edema. There is mild tenderness involving the right antecubital fossa. SWAGING MACHINE ADJUSTER examination; no focal deficit. Results Result Diagram: 10/21/16 0440 10/21/16439 Medications Medications Current Medications Ondansetron HCl (Zofran Inj) 4 mg Q6H PRN IV NAUSEA AND/OR VOMITING; Start at 16:00 Acetaminophen (Tylenol Tab) 650 mg Q6H PRN PO PAIN LEVEL 1-3 OR FEVER; Start at 16:00 Acetaminophen/ Hydrocodone Bitart ([place] (5/325)) 1 tab Q6H PRN PO MODERATE PAIN LEVEL 4-6 Last administered on 10/21/16 20:26; Admin Dose 1 TAB; Start at 16:00 Hydromorphone HCl (Dilaudid) 0.5 mg Q4H PRN IV SEVERE PAIN LEVEL 7-10 Last administered on 10/22/16 08:34; Admin Dose 0.5 MG; Start 10/17/16 at 16:00 Magnesium Hydroxide (Milk Of Mag) 30 ml DAILY PRN PO CONSTIPATION; Start at 16:00 Bisacodyl (Dulcolax) 5 mg DAILY PRN PO CONSTIPATION; Start 10/17/16 at 16:00 Famotidine (Pepcid) 20 mg Q12 PO Last administered on 10/22/16 08:33; Admin Dose 20 MG; Start 10/17/16 at 21:00 Guaifenesin/ Dextromethorphan 5 ml 5 ml Q4H PRN PO COUGH Last administered on 22:34; Admin Dose 5 ML; Start 10/17/16 at 21:00 Levofloxacin/ Dextrose (Levaquin 500mg/ D5W 100 ml (Pmx)) 100 ml @ 100 mls/hr Q24H IVPB Last administered on 10/21/16 12:22; Admin Dose 100 MLS/HR; Start at 12:30 Clotrimazole (Lotrimin Cr) 1 applic BID TOP Last administered on 10/22/16 08: 33; Admin Dose 1 APPLIC; Start 10/21/16 at 16:00; Stop 11/04/16 at 15:59 MINDY FRAZIER October 22, 2016 10:43
[2016-10-22] MEDS: HYDROCODONE/APAP (5/325) TAB PO PRN ×2 (10:44→20:41)
[2016-10-22] MEDS: LEVOFLOXACIN 500MG/D5W (PMX) 100 ML IVPB SCH (12:17)
[2016-10-22 21:11] VITALS: BP 131/60; RESP 20
[2016-10-22] MEDS: GUAIFENESIN/DM 5ML CUP PO PRN (22:29)
[2016-10-23] MEDS: GUAIFENESIN/DM 5ML CUP PO PRN (02:45)
[2016-10-23] MEDS: HYDROmorphONE 1 MG/ML SYG IV PRN ×4 (02:45→19:42)
[2016-10-23 07:10] VITALS: BP 117/63; RESP 16
[2016-10-23] MEDS: ALBUTEROL 0.083% (NEB) 2.5 MG/3 ML AMP HHN SCH ×3 (07:57→19:43)
[2016-10-23] MEDS: RIVAROXABAN 15 MG TABLET PO SCH ×2 (09:25→17:23)
[2016-10-23] MEDS: CLOTRIMAZOLE 1% 30 GM CR TOP SCH ×2 (09:25→20:16)
[2016-10-23] MEDS: FAMOTIDINE 20 MG TAB PO SCH ×2 (09:25→20:16)
--- NOTE | 2016-10-23 10:49 | CONS ---
Date/Time of Note Date/Time of Note DATE: 10/23/16 TIME: 10:42 Assessment/Plan Assessment/Plan Additional Assessment/Plan Assessment recommendations; 1. Patient admitted for severe left lower lobe pneumonia with marked radiological and clinical improvement. 2. Superficial vein thrombosis involving the right antecubital fossa. 3. Mild wheezing. Patient with no history of any asthma. Continue to apply warm compresses to right elbow area. Add DuoNeb 4 times daily for at least 4 doses. Anticipate discharge home in 24 hours. Consultation Date/Type/Reason Admit Date/Time October 17, 2016 at 14:08 Initial Consult Date 10/18/16 Type of Consultation: Pulmonary/internal medicine 24 HR Interval Summary Free Text/Dictation Patient condition is stable. Denies any shortness of breath, chest pain, cough and chest congestion are markedly improved. Patient also reporting decreased pain and tenderness involving the right elbow area due to superficial vein thrombosis. General exam; young male, awake alert currently in no distress. Exam/Review of Systems Vital Signs Vitals Vital Signs Date Time Temp Pulse Resp B/P Pulse Ox O2 Delivery O2 Flow Rate FiO2 10/23/16 07:10 98.8 85 16 117/63 95 10/22/16 19:33 21 Intake and Output 10/22/16 10/22/16 10/23/16 15:00 23:00 07:00 Intake Total 100 ml 950 ml 1500 ml Output Total 1700 ml 1200 ml Balance 100 ml -750 ml 300 ml Exam HEENT examination; supple neck, no JVD. No lymphadenopathy. Midline trachea. No thyromegaly. Pharynx is clear. Patient has good dentition. Chest examination; lateral expiratory wheezing. S1-S2 audible, no murmurs. No organomegaly. No crackles. Abdomen examination; soft, nontender. No organomegaly. Bowel sounds audible. Extremity exam; there is significant reduction in edema and tenderness involving the right antecubital fossa. There is no peripheral edema. OXYACETYLENE CUTTER examination; no focal deficit. Results Result Diagram: 10/21/1643910/21/16439 Medications Medications Current Medications Ondansetron HCl (Zofran Inj) 4 mg Q6H PRN IV NAUSEA AND/OR VOMITING; Start at 16:00 Acetaminophen (Tylenol Tab) 650 mg Q6H PRN PO PAIN LEVEL 1-3 OR FEVER; Start at 16:00 Acetaminophen/ Hydrocodone Bitart ([place] (5/325)) 1 tab Q6H PRN PO MODERATE PAIN LEVEL 4-6 Last administered on 10/22/16 20:41; Admin Dose 1 TAB; Start at 16:00 Hydromorphone HCl (Dilaudid) 0.5 mg Q4H PRN IV SEVERE PAIN LEVEL 7-10 Last administered on 10/23/16 02:45; Admin Dose 0.5 MG; Start 10/17/16 at 16:00 Magnesium Hydroxide (Milk Of Mag) 30 ml DAILY PRN PO CONSTIPATION; Start at 16:00 Bisacodyl (Dulcolax) 5 mg DAILY PRN PO CONSTIPATION; Start 10/17/16 at 16:00 Famotidine (Pepcid) 20 mg Q12 PO Last administered on 10/23/16 09:25; Admin Dose 20 MG; Start 10/17/16 at 21:00 Guaifenesin/ Dextromethorphan 5 ml 5 ml Q4H PRN PO COUGH Last administered on 02:45; Admin Dose 5 ML; Start 10/17/16 at 21:00 Levofloxacin/ Dextrose (Levaquin 500mg/ D5W 100 ml (Pmx)) 100 ml @ 100 mls/hr Q24H IVPB Last administered on 10/22/16 12:17; Admin Dose 100 MLS/HR; Start at 12:30 Clotrimazole (Lotrimin Cr) 1 applic BID TOP Last administered on 10/23/16 09: 25; Admin Dose 1 APPLIC; Start 10/21/16 at 16:00; Stop 11/04/16 at 15:59 MINDY FRAZIER October 23, 2016 10:49
[2016-10-23] MEDS: ALBUTEROL/IPRATROPIUM (NEB) 3 ML AMP HHN SCH ×3 (11:01→19:40)
[2016-10-23] MEDS: LEVOFLOXACIN 500MG/D5W (PMX) 100 ML IVPB SCH (12:38)
--- NOTE | 2016-10-23 16:01 | PN ---
Date/Time of Note Date/Time of Note DATE: 10/23/16 TIME: 16:00 Assessment/Plan VTE Prophylaxis VTE Prophylaxis Intervention: SCD's Lines/Catheters IV [facility]from [facility] Saline Lock Urinary Cath still in place: No Assessment/Plan Assessment/Plan 1. Bilateral pneumonia, consider healthcare acquired, on vanco, cefepime and levaquin, improving both clinically and radiologically on CXR, will continue treatment for 10 days 2. Sepsis secondary to underlying pneumonia. No evidence of any septic shock. The patient will be adequately hydrated 3. Recent bilateral pulmonary embolism, on xarelto 4. Microcytic hypochromic anemia. Subjective 24 Hr Interval Summary Free Text/Dictation better but still cough with yellowish abd bloody sputum Exam/Review of Systems Vital Signs Vitals Vital Signs Date Time Temp Pulse Resp B/P Pulse Ox O2 Delivery O2 Flow Rate FiO2 10/23/16 15:37 84 22 97 21 10/23/16 07:10 98.8 117/63 Intake and Output 10/22/16 10/22/16 10/23/16 15:00 23:00 07:00 Intake Total 100 ml 950 ml 1500 ml Output Total 1700 ml 1200 ml Balance 100 ml -750 ml 300 ml Exam Constitutional: alert, oriented, well developed Psych: nl mood/affect, no complaints Head: atraumatic, normocephalic Eyes: EOMI, PERRL, nl conjunctiva, nl lids ENMT: nl external ears & nose, nl lips & teeth Neck: non-tender, supple Respiratory: clear to auscultation, normal air movement, No congested cough, No crackles/rales, No diminished breath sounds, No intercostal retraction, No labored breathing, No other, No respirations, No tactile fremitus, No wheezing Cardiovascular: nl pulses, regular rate and rhythm, No S3, No S4, No bruits, No diastolic murmur, No edema, No gallop, No irregular rhythm, No jugular venous distention (JVD), No murmurs/extra sounds, No other, No rub, No systolic murmur Gastrointestinal: nl liver, spleen, non-tender, soft, No ascites, No bowel sounds, No distended, No firm, No hepatomegaly, No mass , No other, No rebound or guarding, No splenomegaly, No surgical scars, No tender Musculoskeletal: nl extremities to inspection Extremities: normal pulses, No calf tenderness, No clubbing, No cyanosis, No edema, No other, No palpable cord, No pitting pedal edema, No tenderness Neurological: STOCK TAKER II-XII intact, nl mental status, nl speech, nl strength Skin: nl turgor Lymph: nl lymph nodes Results Result Diagram: 10/21/16 0440 10/21/16 0440 Medications Medications Current Medications Ondansetron HCl (Zofran Inj) 4 mg Q6H PRN IV NAUSEA AND/OR VOMITING Last administered on 10/23/16 14:39; Admin Dose 4 MG; Start 10/17/16 at 16:00 Acetaminophen (Tylenol Tab) 650 mg Q6H PRN PO PAIN LEVEL 1-3 OR FEVER; Start at 16:00 Acetaminophen/ Hydrocodone Bitart ([place] (5/325)) 1 tab Q6H PRN PO MODERATE PAIN LEVEL 4-6 Last administered on 10/22/16 20:41; Admin Dose 1 TAB; Start at 16:00 Hydromorphone HCl (Dilaudid) 0.5 mg Q4H PRN IV SEVERE PAIN LEVEL 7-10 Last administered on 10/23/16 13:37; Admin Dose 0.5 MG; Start 10/17/16 at 16:00 Magnesium Hydroxide (Milk Of Mag) 30 ml DAILY PRN PO CONSTIPATION; Start at 16:00 Bisacodyl (Dulcolax) 5 mg DAILY PRN PO CONSTIPATION; Start 10/17/16 at 16:00 Famotidine (Pepcid) 20 mg Q12 PO Last administered on 10/23/16 09:25; Admin Dose 20 MG; Start 10/17/16 at 21:00 Guaifenesin/ Dextromethorphan 5 ml 5 ml Q4H PRN PO COUGH Last administered on 02:45; Admin Dose 5 ML; Start 10/17/16 at 21:00 Levofloxacin/ Dextrose (Levaquin 500mg/ D5W 100 ml (Pmx)) 100 ml @ 100 mls/hr Q24H IVPB Last administered on 10/23/16 12:38; Admin Dose 100 MLS/HR; Start at 12:30 Clotrimazole (Lotrimin Cr) 1 applic BID TOP Last administered on 10/23/16t 09: 25; Admin Dose 1 APPLIC; Start 10/21/16 at 16:00; Stop 11/04/16 at 15:59 TING LINO MD October 23, 2016 16:01
[2016-10-23] MEDS: HYDROCODONE/APAP (5/325) TAB PO PRN (21:54)
[2016-10-23 21:59] VITALS: BP 132/76; RESP 18
[2016-10-24] MEDS: ALBUTEROL/IPRATROPIUM (NEB) 3 ML AMP HHN SCH ×4 (02:00→20:29)
[2016-10-24] MEDS: HYDROmorphONE 1 MG/ML SYG IV PRN ×5 (04:18→22:44)
[2016-10-24 07:49] VITALS: BP 108/63; RESP 20
[2016-10-24] MEDS: ALBUTEROL 0.083% (NEB) 2.5 MG/3 ML AMP HHN SCH ×3 (08:00→20:00)
[2016-10-24] MEDS: FAMOTIDINE 20 MG TAB PO SCH ×2 (09:34→20:38)
[2016-10-24] MEDS: CLOTRIMAZOLE 1% 30 GM CR TOP SCH ×2 (09:35→20:39)
[2016-10-24] MEDS: RIVAROXABAN 15 MG TABLET PO SCH ×2 (09:35→17:56)
--- NOTE | 2016-10-24 09:57 | CONS ---
Date/Time of Note Date/Time of Note DATE: 10/24/16 TIME: 09:54 Assessment/Plan Assessment/Plan Additional Assessment/Plan Assessment recommendations; next 1. Patient admitted for severe pneumonia involving left lung with marked clinical and radiological improvement. 2. Superficial thrombosis involving right basilic vein, patient awaiting warm compress application. 3. 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 Continue current treatment. Consultation Date/Type/Reason Admit Date/Time October 17, 2016 at 14:08 Initial Consult Date 10/18/16 Type of Consultation: Pulmonary 24 HR Interval Summary Free Text/Dictation Patient condition is stable. Still complains of pain at right elbow area at the site of venous thrombosis. Shortness of breath is continually improving. Patient still complains of cough with mild sputum production. Denies any fever chills chest pain or shortness of breath. General exam; young male, awake alert currently in no distress. Exam/Review of Systems Vital Signs Vitals Vital Signs Date Time Temp Pulse Resp B/P Pulse Ox O2 Delivery O2 Flow Rate FiO2 10/24/16 07:49 98.5 70 20 108/63 96 10/23/16 19:40 21 Intake and Output 10/23/16 10/23/16 10/24/16 15:00 23:00 07:00 Intake Total 100 ml 1200 ml 360 ml Output Total 1000 ml Balance 100 ml 200 ml 360 ml Exam HEENT examination; supple neck, no JVD. No lymphadenopathy. Midline trachea. No thyromegaly. Patient has good dentition. Chest examination; diminished but clear vessel. No added sound. S1-S2 audible , no murmurs. Regular rhythm. Abdomen examination; soft, nondistended. No organomegaly. Bowel sounds audible. Extremity exam; there is tenderness and palpable thrombosis involving the right antecubital fossa. BENCH EXAMINER examination; no focal deficit. Results Result Diagram: 10/21/16 0440 10/21/16 0440 Medications Medications Current Medications Ondansetron HCl (Zofran Inj) 4 mg Q6H PRN IV NAUSEA AND/OR VOMITING Last administered on 10/23/16t 14:39; Admin Dose 4 MG; Start 10/17/16 at 16:00 Acetaminophen (Tylenol Tab) 650 mg Q6H PRN PO PAIN LEVEL 1-3 OR FEVER; Start at 16:00 Acetaminophen/ Hydrocodone Bitart ([place] (5/325)) 1 tab Q6H PRN PO MODERATE PAIN LEVEL 4-6 Last administered on 10/23/16 21:54; Admin Dose 1 TAB; Start at 16:00 Hydromorphone HCl (Dilaudid) 0.5 mg Q4H PRN IV SEVERE PAIN LEVEL 7-10 Last administered on 10/24/16 09:34; Admin Dose 0.5 MG; Start 10/17/16 at 16:00 Magnesium Hydroxide (Milk Of Mag) 30 ml DAILY PRN PO CONSTIPATION; Start at 16:00 Bisacodyl (Dulcolax) 5 mg DAILY PRN PO CONSTIPATION; Start 10/17/16 at 16:00 Famotidine (Pepcid) 20 mg Q12 PO Last administered on 10/24/16 09:34; Admin Dose 20 MG; Start 10/17/16 at 21:00 Guaifenesin/ Dextromethorphan 5 ml 5 ml Q4H PRN PO COUGH Last administered on 02:45; Admin Dose 5 ML; Start 10/17/16 at 21:00 Levofloxacin/ Dextrose (Levaquin 500mg/ D5W 100 ml (Pmx)) 100 ml @ 100 mls/hr Q24H IVPB Last administered on 10/23/16 12:38; Admin Dose 100 MLS/HR; Start at 12:30 Clotrimazole (Lotrimin Cr) 1 applic BID TOP Last administered on 10/24/16 09: 35; Admin Dose 1 APPLIC; Start 10/21/16 at 16:00; Stop 11/04/16 at 15:59 MINDY FRAZIER October 24, 2016 09:57
[2016-10-24] MEDS: LEVOFLOXACIN 500MG/D5W (PMX) 100 ML IVPB SCH (13:08)
--- NOTE | 2016-10-24 13:58 | PN ---
Date/Time of Note Date/Time of Note DATE: 10/24/16 TIME: 13:56 Assessment/Plan VTE Prophylaxis VTE Prophylaxis Intervention: other Lines/Catheters IV [facility] Type [facility]from [facility] Saline Lock Urinary Cath still in place: No Assessment/Plan Assessment/Plan 1. Bilateral pneumonia, consider healthcare acquired, on vanco, cefepime and levaquin, improving both clinically and radiologically on CXR, will continue treatment for 10 days 2. Sepsis secondary to underlying pneumonia. No evidence of any septic shock. The patient will be adequately hydrated 3. Recent bilateral pulmonary embolism, on xarelto 4. Microcytic hypochromic anemia. Subjective 24 Hr Interval Summary Free Text/Dictation still cough with some blood but less Exam/Review of Systems Vital Signs Vitals Vital Signs Date Time Temp Pulse Resp B/P Pulse Ox O2 Delivery O2 Flow Rate FiO2 10/24/16 12:26 86 22 97 21 10/24/16 07:49 98.5 108/63 Intake and Output 10/23/16 10/23/16 10/24/16 15:00 23:00 07:00 Intake Total 100 ml 1200 ml 360 ml Output Total 1000 ml Balance 100 ml 200 ml 360 ml Exam Constitutional: alert, oriented, well developed Psych: nl mood/affect, no complaints Head: atraumatic, normocephalic Eyes: EOMI, PERRL, nl conjunctiva, nl lids ENMT: nl external ears & nose, nl lips & teeth, nl nasal mucosa & septum Neck: non-tender, supple Respiratory: clear to auscultation, normal air movement, No congested cough, No crackles/rales, No diminished breath sounds, No intercostal retraction, No labored breathing, No other, No respirations, No tactile fremitus, No wheezing Cardiovascular: nl pulses, regular rate and rhythm, No S3, No S4, No bruits, No diastolic murmur, No edema, No gallop, No irregular rhythm, No jugular venous distention (JVD), No murmurs/extra sounds, No other, No rub, No systolic murmur Gastrointestinal: nl liver, spleen, non-tender, soft, No ascites, No bowel sounds, No distended, No firm, No hepatomegaly, No mass , No other, No rebound or guarding, No splenomegaly, No surgical scars, No tender Musculoskeletal: nl extremities to inspection Extremities: normal pulses, No calf tenderness, No clubbing, No cyanosis, No edema, No other, No palpable cord, No pitting pedal edema, No tenderness Neurological: ASSOCIATE PROFESSOR OF LITERACY II-XII intact, nl mental status, nl speech, nl strength Skin: nl turgor Lymph: nl lymph nodes Results Result Diagram: 10/21/160 10/21/16 044 Medications Medications Current Medications Ondansetron HCl (Zofran Inj) 4 mg Q6H PRN IV NAUSEA AND/OR VOMITING Last administered on 10/23/16 14:39; Admin Dose 4 MG; Start 10/17/16 at 16:00 Acetaminophen (Tylenol Tab) 650 mg Q6H PRN PO PAIN LEVEL 1-3 OR FEVER; Start at 16:00 Acetaminophen/ Hydrocodone Bitart ([place] (5/325)) 1 tab Q6H PRN PO MODERATE PAIN LEVEL 4-6 Last administered on 10/23/16 21:54; Admin Dose 1 TAB; Start at 16:00 Hydromorphone HCl (Dilaudid) 0.5 mg Q4H PRN IV SEVERE PAIN LEVEL 7-10 Last administered on 10/24/16 13:35; Admin Dose 0.5 MG; Start 10/17/16 at 16:00 Magnesium Hydroxide (Milk Of Mag) 30 ml DAILY PRN PO CONSTIPATION; Start at 16:00 Bisacodyl (Dulcolax) 5 mg DAILY PRN PO CONSTIPATION; Start 10/17/16 at 16:00 Famotidine (Pepcid) 20 mg Q12 PO Last administered on 10/24/16 09:34; Admin Dose 20 MG; Start 10/17/16 at 21:00 Guaifenesin/ Dextromethorphan 5 ml 5 ml Q4H PRN PO COUGH Last administered on 02:45; Admin Dose 5 ML; Start 10/17/16 at 21:00 Levofloxacin/ Dextrose (Levaquin 500mg/ D5W 100 ml (Pmx)) 100 ml @ 100 mls/hr Q24H IVPB Last administered on 10/24/16 13:08; Admin Dose 100 MLS/HR; Start at 12:30 Clotrimazole (Lotrimin Cr) 1 applic BID TOP Last administered on 10/24/16t 09: 35; Admin Dose 1 APPLIC; Start 10/21/16 at 16:00; Stop 11/04/16 at 15:59 TING LINO MD October 24, 2016 13:58
[2016-10-24 19:42] VITALS: BP 137/78; RESP 18
[2016-10-24] MEDS: HYDROCODONE/APAP (5/325) TAB PO PRN (20:38)
[2016-10-25] MEDS: ALBUTEROL/IPRATROPIUM (NEB) 3 ML AMP HHN SCH ×4 (02:00→20:52)
[2016-10-25] MEDS: HYDROmorphONE 1 MG/ML SYG IV PRN ×5 (03:21→22:02)
[2016-10-25] MEDS: DIPHENHYDRAMINE 50 MG INJ IV PRN ×3 (04:18→18:59)
[2016-10-25 05:42] LABS: ADD SCAN DIFF NO
[2016-10-25 06:00] LABS: BASOPHILS % 0.4 % (0.0-2.0); EOSINOPHILS # 0.3 10^3/ul (0.0-0.5); EOSINOPHILS % 5.1 % (0.0-7.0); HEMATOCRIT 35.8 % (42.0-52.0); HEMOGLOBIN 11.5 g/dl (14.0-18.0); LYMPHOCYTES # 1.5 10^3/ul (0.8-2.9); LYMPHOCYTES % 29.6 % (15.0-51.0); MEAN CORPUSCULAR HEMOGLOBIN 25.6 pg (29.0-33.0); MEAN CORPUSCULAR HGB CONC 32.1 g/dl (32.0-37.0); MEAN CORPUSCULAR VOLUME 79.6 fl (82.0-101.0); MEAN PLATELET VOLUME 9.2 fl (7.4-10.4); MONOCYTE # 0.6 10^3/ul (0.3-0.9); MONOCYTES % 12.2 % (0.0-11.0); NEUTROPHIL # 2.6 10^3/ul (1.6-7.5); NEUTROPHILS % 52.1 % (39.0-77.0); PLATELET COUNT 527 10^3/UL (140-415); RED CELL DISTRIBUTION WIDTH 13.2 % (11.5-14.5); WHITE BLOOD COUNT 4.9 10^3/ul (4.8-10.8)
[2016-10-25 06:06] LABS: POTASSIUM 3.8 mmol/L (3.5-5.1)
[2016-10-25 06:09] LABS: CREATININE 0.81 mg/dl (0.61-1.24)
[2016-10-25 06:10] LABS: CALCIUM 9.1 mg/dl (8.4-10.2)
[2016-10-25 07:49] VITALS: BP 133/81; RESP 20
[2016-10-25] MEDS: ALBUTEROL 0.083% (NEB) 2.5 MG/3 ML AMP HHN SCH ×3 (08:00→20:00)
[2016-10-25] MEDS: RIVAROXABAN 15 MG TABLET PO SCH ×2 (08:59→18:00)
[2016-10-25] MEDS: CLOTRIMAZOLE 1% 30 GM CR TOP SCH ×2 (08:59→20:27)
[2016-10-25] MEDS: FAMOTIDINE 20 MG TAB PO SCH ×2 (08:59→20:26)
--- NOTE | 2016-10-25 10:04 | CONS ---
Date/Time of Note Date/Time of Note DATE: 10/25/16 TIME: 10:01 Assessment/Plan Assessment/Plan Additional Assessment/Plan Assessment recommendations; 1. Patient admitted for left lower lobe pneumonia with significant clinical improvement. However examination today is revealing bronchial breath sounds in left lower lobe. 2. Superficial thrombophlebitis involving the right elbow. Clinically improved. Patient getting warm compresses 4 times a day. 3. History of recurrent pulmonary embolism, patient on long-term anticoagulation. Discontinue Levaquin. Will obtain a chest x-ray. Further recommendations to be made once chest x-ray is obtained. Consultation Date/Type/Reason Admit Date/Time October 17, 2016 at 14:08 Initial Consult Date 10/18/16 Type of Consultation: Pulmonary 24 HR Interval Summary Free Text/Dictation Patient condition is stable. Reports decreased pain and swelling involving the right elbow area. Denies any shortness of breath, complains of very scant cough with very scant sputum production. General exam; young male, awake alert currently in no distress. Exam/Review of Systems Vital Signs Vitals Vital Signs Date Time Temp Pulse Resp B/P Pulse Ox O2 Delivery O2 Flow Rate FiO2 10/25/16 07:49 98.6 83 20 133/81 100 10/24/16 20:39 21 Intake and Output 10/24/16 10/24/16 10/25/16 15:00 23:00 07:00 Intake Total 100 ml 800 ml 500 ml Balance 100 ml 800 ml 500 ml Exam HEENT exam is; supple neck, no JVD. No lymphadenopathy. Midline trachea. No thyromegaly. Pharynx is clear. Patient has good dentition. Chest exam; bronchial breath sounds left lower lobe rest of the lung carranza are clear. S1-S2 audible, no murmurs. Regular rhythm. Abdomen examination; soft, nontender. No organomegaly. Bowel sounds audible. Extremity exam; there is reduction in right antecubital fossa thrombophlebitis. No peripheral edema. SAP SPECIALIST examination; no focal deficit. Results Result Diagram: 10/25/16 0435 10/25/16 0435 Results 24 hrs Laboratory Tests Test 10/25/16 04:35 White Blood Count 4.9 Red Blood Count 4.50 L Hemoglobin 11.5 L Hematocrit 35.8 L Mean Corpuscular Volume 79.6 L Mean Corpuscular Hemoglobin 25.6 L Mean Corpuscular Hemoglobin Concent 32.1 Red Cell Distribution Width 13.2 Platelet Count 527 H Mean Platelet Volume 9.2 Neutrophils % 52.1 Lymphocytes % 29.6 Monocytes % 12.2 H Eosinophils % 5.1 Basophils % 0.4 Nucleated Red Blood Cells % 0.0 Neutrophils # 2.6 Lymphocytes # 1.5 Monocytes # 0.6 Eosinophils # 0.3 Basophils # 0.0 Nucleated Red Blood Cells # 0.0 Sodium Level 137 Potassium Level 3.8 Chloride Level 99 Carbon Dioxide Level 28 Anion Gap 14 Blood Urea Nitrogen 12 Creatinine 0.81 Glucose Level 105 Calcium Level 9.1 Medications Medications Current Medications Ondansetron HCl (Zofran Inj) 4 mg Q6H PRN IV NAUSEA AND/OR VOMITING Last administered on 10/23/16 14:39; Admin Dose 4 MG; Start 10/17/16 at 16:00 Acetaminophen (Tylenol Tab) 650 mg Q6H PRN PO PAIN LEVEL 1-3 OR FEVER; Start at 16:00 Acetaminophen/ Hydrocodone Bitart ([place] (5/325)) 1 tab Q6H PRN PO MODERATE PAIN LEVEL 4-6 Last administered on 10/24/16 20:38; Admin Dose 1 TAB; Start at 16:00 Hydromorphone HCl (Dilaudid) 0.5 mg Q4H PRN IV SEVERE PAIN LEVEL 7-10 Last administered on 10/25/16 09:05; Admin Dose 0.5 MG; Start 10/17/16 at 16:00 Magnesium Hydroxide (Milk Of Mag) 30 ml DAILY PRN PO CONSTIPATION; Start at 16:00 Bisacodyl (Dulcolax) 5 mg DAILY PRN PO CONSTIPATION; Start 10/17/16 at 16:00 Famotidine (Pepcid) 20 mg Q12 PO Last administered on 10/25/16 08:59; Admin Dose 20 MG; Start 10/17/16 at 21:00 Guaifenesin/ Dextromethorphan 5 ml 5 ml Q4H PRN PO COUGH Last administered on 02:45; Admin Dose 5 ML; Start 10/17/16 at 21:00 Levofloxacin/ Dextrose (Levaquin 500mg/ D5W 100 ml (Pmx)) 100 ml @ 100 mls/hr Q24H IVPB Last administered on 10/24/16 13:08; Admin Dose 100 MLS/HR; Start at 12:30 Clotrimazole (Lotrimin Cr) 1 applic BID TOP Last administered on 10/25/16 08: 59; Admin Dose 1 APPLIC; Start 10/21/16 at 16:00; Stop 11/04/16 at 15:59 Diphenhydramine HCl (Benadryl) 25 mg Q6H PRN IV ITCHING Last administered on 04:18; Admin Dose 25 MG; Start 10/25/16 at 03:30 Hydrocortisone (Hydrocortisone 1% Cr) 1 applic TID TOP ; Start 10/25/16 at 13:00 MINDY FRAZIER October 25, 2016 10:04
[2016-10-25] MEDS: HYDROCORTISONE 1% 28 GM CR TOP SCH ×2 (13:18→20:27)
--- NOTE | 2016-10-25 15:53 | PN ---
Date/Time of Note Date/Time of Note DATE: 10/25/16 TIME: 15:51 Assessment/Plan VTE Prophylaxis VTE Prophylaxis Intervention: other Lines/Catheters [facility]from [facility] Saline Lock Urinary Cath still in place: No Assessment/Plan Assessment/Plan 1. Bilateral pneumonia, consider healthcare acquired, on vanco, cefepime and levaquin, improving both clinically and radiologically on CXR, will continue treatment for 10 days 2. Sepsis secondary to underlying pneumonia. No evidence of any septic shock. The patient will be adequately hydrated 3. Recent bilateral pulmonary embolism, on xarelto 4. Microcytic hypochromic anemia. Subjective 24 Hr Interval Summary Free Text/Dictation feels better, less cough Exam/Review of Systems Vital Signs Vitals Vital Signs Date Time Temp Pulse Resp B/P Pulse Ox O2 Delivery O2 Flow Rate FiO2 10/25/16 07:49 98.6 83 20 133/81 100 10/24/16 20:39 21 Intake and Output 10/24/16 10/24/16 10/25/16 15:00 23:00 07:00 Intake Total 100 ml 800 ml 500 ml Balance 100 ml 800 ml 500 ml Exam Constitutional: alert, oriented, well developed Psych: nl mood/affect, no complaints Head: atraumatic, normocephalic Eyes: EOMI, PERRL, nl conjunctiva, nl lids ENMT: nl external ears & nose, nl lips & teeth, nl nasal mucosa & septum Neck: non-tender, supple Respiratory: clear to auscultation, normal air movement, No congested cough, No crackles/rales, No diminished breath sounds, No intercostal retraction, No labored breathing, No other, No respirations, No tactile fremitus, No wheezing Cardiovascular: nl pulses, regular rate and rhythm, No S3, No S4, No bruits, No diastolic murmur, No edema, No gallop, No irregular rhythm, No jugular venous distention (JVD), No murmurs/extra sounds, No other, No rub, No systolic murmur Gastrointestinal: nl liver, spleen, non-tender, soft, No ascites, No bowel sounds, No distended, No firm, No hepatomegaly, No mass , No other, No rebound or guarding, No splenomegaly, No surgical scars, No tender Musculoskeletal: nl extremities to inspection Extremities: normal pulses, No calf tenderness, No clubbing, No cyanosis, No edema, No other, No palpable cord, No pitting pedal edema, No tenderness Neurological: LINING FELLER II-XII intact, nl mental status, nl speech, nl strength Results Result Diagram: 10/25/165 10/25/165 Results 24 hrs Laboratory Tests Test 10/25/16 04:35 White Blood Count 4.9 Red Blood Count 4.50 L Hemoglobin 11.5 L Hematocrit 35.8 L Mean Corpuscular Volume 79.6 L Mean Corpuscular Hemoglobin 25.6 L Mean Corpuscular Hemoglobin Concent 32.1 Red Cell Distribution Width 13.2 Platelet Count 527 H Mean Platelet Volume 9.2 Neutrophils % 52.1 Lymphocytes % 29.6 Monocytes % 12.2 H Eosinophils % 5.1 Basophils % 0.4 Nucleated Red Blood Cells % 0.0 Neutrophils # 2.6 Lymphocytes # 1.5 Monocytes # 0.6 Eosinophils # 0.3 Basophils # 0.0 Nucleated Red Blood Cells # 0.0 Sodium Level 137 Potassium Level 3.8 Chloride Level 99 Carbon Dioxide Level 28 Anion Gap 14 Blood Urea Nitrogen 12 Creatinine 0.81 Glucose Level 105 Calcium Level 9.1 Medications Medications Current Medications Ondansetron HCl (Zofran Inj) 4 mg Q6H PRN IV NAUSEA AND/OR VOMITING Last administered on 10/23/16 14:39; Admin Dose 4 MG; Start 10/17/16 at 16:00 Acetaminophen (Tylenol Tab) 650 mg Q6H PRN PO PAIN LEVEL 1-3 OR FEVER; Start at 16:00 Acetaminophen/ Hydrocodone Bitart ([place] (5/325)) 1 tab Q6H PRN PO MODERATE PAIN LEVEL 4-6 Last administered on 10/24/16 20:38; Admin Dose 1 TAB; Start at 16:00 Hydromorphone HCl (Dilaudid) 0.5 mg Q4H PRN IV SEVERE PAIN LEVEL 7-10 Last administered on 10/25/16 13:18; Admin Dose 0.5 MG; Start 10/17/16 at 16:00 Magnesium Hydroxide (Milk Of Mag) 30 ml DAILY PRN PO CONSTIPATION; Start at 16:00 Bisacodyl (Dulcolax) 5 mg DAILY PRN PO CONSTIPATION; Start 10/17/16 at 16:00 Famotidine (Pepcid) 20 mg Q12 PO Last administered on 10/25/16 08:59; Admin Dose 20 MG; Start 10/17/16 at 21:00 Guaifenesin/ Dextromethorphan (Robitussin Dm Liquid Cup) 5 ml Q4H PRN PO COUGH Last administered on 10/23/16 02:45; Admin Dose 5 ML; Start 10/17/16 at 21:00 Clotrimazole (Lotrimin Cr) 1 applic BID TOP Last administered on 10/25/16 08: 59; Admin Dose 1 APPLIC; Start 10/21/16 at 16:00; Stop 11/04/16 at 15:59 Diphenhydramine HCl (Benadryl) 25 mg Q6H PRN IV ITCHING Last administered on 10:56; Admin Dose 25 MG; Start 10/25/16 at 03:30 Hydrocortisone (Hydrocortisone 1% Cr) 1 applic TID TOP Last administered on 13:18; Admin Dose 1 APPLIC; Start 10/25/16 at 13:00 TING LINO MD October 25, 2016 15:53
[2016-10-25] MEDS: HYDROCODONE/APAP (5/325) TAB PO PRN ×2 (16:26→23:32)
--- NOTE | 2016-10-25 19:04 | RADRPT ---
PROCEDURE: XR Chest AP portable CLINICAL INDICATION: Pneumonia, left lower lobe TECHNIQUE: An AP portable radiograph of the chest was submitted. COMPARISON: 10/07/2016 FINDINGS: Support Hardware: None Cardiovascular: The cardiovascular silhouette appears unremarkable. Lung [place]: There has been significant improvement with regards to the atelectasis/infiltrate invol ving the left lower lung zone. There has also been improved aeration of the focus of streaky infilt rate or discoid atelectasis at the right lung base. Pleural Spaces: No pneumothorax or pleural effusion is identified. Osseous Structures: The osseous structures appear intact. Soft Tissues: The left hemidiaphragm is mildly elevated. IMPRESSION: 1. Considerable improvement in aeration of the left lower lobe with resolving infiltrate/atelectasi s. 2. Improved base with improved minimal discoid atelectasis. 3. Mild elevation of left hemidiaphragm, unchanged. Physician Keith Date Time Electronically viewed and signed by Physician Keith on 10/25/2016 19:04 /
[2016-10-25 20:59] VITALS: BP 117/68; RESP 18
[2016-10-26] MEDS: ALBUTEROL/IPRATROPIUM (NEB) 3 ML AMP HHN SCH ×3 (02:06→13:29)
[2016-10-26] MEDS: HYDROmorphONE 1 MG/ML SYG IV PRN ×5 (02:15→20:31)
[2016-10-26] MEDS: DIPHENHYDRAMINE 50 MG INJ IV PRN ×4 (03:30→23:32)
[2016-10-26] MEDS: ALBUTEROL 0.083% (NEB) 2.5 MG/3 ML AMP HHN SCH ×2 (07:18→13:31)
[2016-10-26 08:06] VITALS: BP 114/63; RESP 19
[2016-10-26] MEDS: FAMOTIDINE 20 MG TAB PO SCH ×2 (08:18→20:30)
[2016-10-26] MEDS: RIVAROXABAN 15 MG TABLET PO SCH ×2 (08:18→17:32)
[2016-10-26] MEDS: NACL 0.9% 3 ML SYG IV SCH (08:19)
[2016-10-26] MEDS: CLOTRIMAZOLE 1% 30 GM CR TOP SCH ×2 (08:19→20:30)
[2016-10-26] MEDS: HYDROCORTISONE 1% 28 GM CR TOP SCH ×3 (08:19→20:30)
--- NOTE | 2016-10-26 12:35 | CONS ---
Date/Time of Note Date/Time of Note DATE: 10/26/16 TIME: 12:33 Assessment/Plan Assessment/Plan Additional Assessment/Plan Chest x-ray was reviewed from yesterday afternoon which is showing continued improvement in left lower lobe pneumonia. Assessment recommendations; 1. Patient admitted for left lower lobe pneumonia with marked clinical and radiological improvement. 2. Left antecubital area thrombophlebitis with interval improvement as well. Patient getting warm compresses. 3. History of DVT and PE currently on long-term anticoagulation. Patient can be discharged home. Consultation Date/Type/Reason Admit Date/Time October 17, 2016 at 14:08 Initial Consult Date 10/18/16 Type of Consultation: Pulmonary 24 HR Interval Summary Free Text/Dictation Patient condition is stable. Reporting significant reduction in pain and swelling involving the right elbow area at the site of superficial thrombophlebitis. Complains of scant cough with scant sputum production. Denies any fever chills chest pain. General exam; young male, awake alert currently in no distress. Exam/Review of Systems Vital Signs Vitals Vital Signs Date Time Temp Pulse Resp B/P Pulse Ox O2 Delivery O2 Flow Rate FiO2 10/26/16 08:06 98.1 89 19 114/63 100 10/26/16 07:15 21 Intake and Output 10/25/16 10/25/16 10/26/16 15:00 23:00 07:00 Intake Total 1460 ml 800 ml Balance 1460 ml 800 ml Exam HEENT examination; supple neck, no JVD. No lymphadenopathy. Midline trachea. No thyromegaly. Pharynx is clear. Patient has good dentition. Neck Chest exam is; bronchial breath sounds involving left lower lobe. Rest of the lung carranza are clear. S1-S2 audible, no murmurs. Regular rhythm. Abdomen examination; benign. Extremity exam; continued improvement in right antecubital vein thrombophlebitis. No peripheral edema. PORTABLE ROUTER OPERATOR exam; no focal deficit. Results Result Diagram: 10/25/16 0435 10/25/16 0435 Medications Medications Current Medications Ondansetron HCl (Zofran Inj) 4 mg Q6H PRN IV NAUSEA AND/OR VOMITING Last administered on 10/23/16t 14:39; Admin Dose 4 MG; Start 10/17/16 at 16:00 Acetaminophen (Tylenol Tab) 650 mg Q6H PRN PO PAIN LEVEL 1-3 OR FEVER; Start at 16:00 Acetaminophen/ Hydrocodone Bitart ([place] (5/325)) 1 tab Q6H PRN PO MODERATE PAIN LEVEL 4-6 Last administered on 10/25/16 23:32; Admin Dose 1 TAB; Start at 16:00 Hydromorphone HCl (Dilaudid) 0.5 mg Q4H PRN IV SEVERE PAIN LEVEL 7-10 Last administered on 10/26/16 12:20; Admin Dose 0.5 MG; Start 10/17/16 at 16:00 Magnesium Hydroxide (Milk Of Mag) 30 ml DAILY PRN PO CONSTIPATION; Start at 16:00 Bisacodyl (Dulcolax) 5 mg DAILY PRN PO CONSTIPATION; Start 10/17/16 at 16:00 Famotidine (Pepcid) 20 mg Q12 PO Last administered on 10/26/16 08:18; Admin Dose 20 MG; Start 10/17/16 at 21:00 Guaifenesin/ Dextromethorphan (Robitussin Dm Liquid Cup) 5 ml Q4H PRN PO COUGH Last administered on 10/23/16 02:45; Admin Dose 5 ML; Start 10/17/16 at 21:00 Clotrimazole (Lotrimin Cr) 1 applic BID TOP Last administered on 10/26/16 08: 19; Admin Dose 1 APPLIC; Start 10/21/16 at 16:00; Stop 11/04/16 at 15:59 Diphenhydramine HCl (Benadryl) 25 mg Q6H PRN IV ITCHING Last administered on 09:30; Admin Dose 25 MG; Start 10/25/16 at 03:30 Hydrocortisone (Hydrocortisone 1% Cr) 1 applic TID TOP Last administered on 08:19; Admin Dose 1 APPLIC; Start 10/25/16 at 13:00 MINDY FRAZIER October 26, 2016 12:35
--- NOTE | 2016-10-26 14:48 | PN ---
Date/Time of Note Date/Time of Note DATE: 10/26/16 TIME: 14:46 Assessment/Plan VTE Prophylaxis VTE Prophylaxis Intervention: other Lines/Catheters IV [facility] Type [facility]from [email or web address] Saline Lock Urinary Cath still in place: No Assessment/Plan Assessment/Plan 1. Bilateral pneumonia, consider healthcare acquired, on vanco, cefepime and levaquin, improving both clinically and radiologically on CXR, will continue treatment for 10 days, home tomorrow 2. Sepsis secondary to underlying pneumonia. No evidence of any septic shock. The patient will be adequately hydrated 3. Recent bilateral pulmonary embolism, on xarelto 4. Microcytic hypochromic anemia. Subjective 24 Hr Interval Summary Free Text/Dictation feels better, less cough, olvera sputum with some old blood Exam/Review of Systems Vital Signs Vitals Vital Signs Date Time Temp Pulse Resp B/P Pulse Ox O2 Delivery O2 Flow Rate FiO2 10/26/16 13:29 79 18 98 21 10/26/16 08:06 98.1 114/63 Intake and Output 10/25/16 10/25/16 10/26/16 15:00 23:00 07:00 Intake Total 1460 ml 800 ml Balance 1460 ml 800 ml Exam Constitutional: alert, oriented, well developed Psych: nl mood/affect, no complaints Head: atraumatic, normocephalic Eyes: EOMI, PERRL, nl conjunctiva, nl lids ENMT: nl external ears & nose, nl lips & teeth, nl nasal mucosa & septum Neck: non-tender, supple Respiratory: clear to auscultation, normal air movement, No congested cough, No crackles/rales, No diminished breath sounds, No intercostal retraction, No labored breathing, No other, No respirations, No tactile fremitus, No wheezing Cardiovascular: nl pulses, regular rate and rhythm, No S3, No S4, No bruits, No diastolic murmur, No edema, No gallop, No irregular rhythm, No jugular venous distention (JVD), No murmurs/extra sounds, No other, No rub, No systolic murmur Gastrointestinal: nl liver, spleen, non-tender, soft, No ascites, No bowel sounds, No distended, No firm, No hepatomegaly, No mass , No other, No rebound or guarding, No splenomegaly, No surgical scars, No tender Musculoskeletal: nl extremities to inspection Extremities: normal pulses, No calf tenderness, No clubbing, No cyanosis, No edema, No other, No palpable cord, No pitting pedal edema, No tenderness Neurological: VISCERA WASHER II-XII intact, nl mental status, nl speech, nl strength Skin: nl turgor Lymph: nl lymph nodes Results Result Diagram: 10/25/16 0435 10/25/165 Medications Medications Current Medications Ondansetron HCl (Zofran Inj) 4 mg Q6H PRN IV NAUSEA AND/OR VOMITING Last administered on 10/23/16 14:39; Admin Dose 4 MG; Start 10/17/16 at 16:00 Acetaminophen (Tylenol Tab) 650 mg Q6H PRN PO PAIN LEVEL 1-3 OR FEVER; Start at 16:00 Acetaminophen/ Hydrocodone Bitart ([place] (5/325)) 1 tab Q6H PRN PO MODERATE PAIN LEVEL 4-6 Last administered on 10/25/16 23:32; Admin Dose 1 TAB; Start at 16:00 Hydromorphone HCl (Dilaudid) 0.5 mg Q4H PRN IV SEVERE PAIN LEVEL 7-10 Last administered on 10/26/16 12:20; Admin Dose 0.5 MG; Start 10/17/16 at 16:00 Magnesium Hydroxide (Milk Of Mag) 30 ml DAILY PRN PO CONSTIPATION; Start at 16:00 Bisacodyl (Dulcolax) 5 mg DAILY PRN PO CONSTIPATION; Start 10/17/16 at 16:00 Famotidine (Pepcid) 20 mg Q12 PO Last administered on 10/26/16 08:18; Admin Dose 20 MG; Start 10/17/16 at 21:00 Guaifenesin/ Dextromethorphan (Robitussin Dm Liquid Cup) 5 ml Q4H PRN PO COUGH Last administered on 10/23/16 02:45; Admin Dose 5 ML; Start 10/17/16 at 21:00 Clotrimazole (Lotrimin Cr) 1 applic BID TOP Last administered on 10/26/16 08: 19; Admin Dose 1 APPLIC; Start 10/21/16 at 16:00; Stop 11/04/16 at 15:59 Diphenhydramine HCl (Benadryl) 25 mg Q6H PRN IV ITCHING Last administered on 09:30; Admin Dose 25 MG; Start 10/25/16 at 03:30 Hydrocortisone (Hydrocortisone 1% Cr) 1 applic TID TOP Last administered on 08:19; Admin Dose 1 APPLIC; Start 10/25/16 at 13:00 TING LINO MD October 26, 2016 14:48
[2016-10-26 20:00] VITALS: BP 121/70; RESP 20
[2016-10-27] MEDS: HYDROmorphONE 1 MG/ML SYG IV PRN ×4 (00:51→14:22)
[2016-10-27] MEDS: DIPHENHYDRAMINE 50 MG INJ IV PRN (07:29)
[2016-10-27 07:44] VITALS: BP 99/51; RESP 20
[2016-10-27] MEDS: RIVAROXABAN 15 MG TABLET PO SCH (08:18)
[2016-10-27] MEDS: FAMOTIDINE 20 MG TAB PO SCH (08:18)
[2016-10-27] MEDS: CLOTRIMAZOLE 1% 30 GM CR TOP SCH (08:19)
[2016-10-27] MEDS: NACL 0.9% 3 ML SYG IV SCH ×2 (08:19→10:15)
[2016-10-27] MEDS: HYDROCORTISONE 1% 28 GM CR TOP SCH ×2 (08:19→14:23)
--- NOTE | 2016-10-27 09:42 | CONS ---
Date/Time of Note Date/Time of Note DATE: 10/27/16 TIME: 09:40 Assessment/Plan Assessment/Plan Additional Assessment/Plan Assessment recommendations; next 1. Patient admitted with severe left lower lobe pneumonia with marked clinical and radiological improvement. 2. History of recurrent PE currently on long-term anticoagulation. 3. Left elbow superficial thrombophlebitis improving as well. Continue current treatment. Consider discharge. Consultation Date/Type/Reason Admit Date/Time October 17, 2016 at 14:08 Initial Consult Date 10/18/16 Type of Consultation: Pulmonary 24 HR Interval Summary Free Text/Dictation Patient condition is stable. Complains of scant cough and scant sputum production. Denies any chest pain. Right elbow thrombophlebitis is continually improving as well. General exam; young male, awake alert currently in no distress. Exam/Review of Systems Vital Signs Vitals Vital Signs Date Time Temp Pulse Resp B/P Pulse Ox O2 Delivery O2 Flow Rate FiO2 10/27/16 07:44 98.9 86 20 99/51 98 10/26/16 13:29 21 Intake and Output 10/26/16 10/26/16 10/27/16 15:00 23:00 07:00 Intake Total 1300 ml 1000 ml Balance 1300 ml 1000 ml Exam HEENT exam is; supple neck, no JVD. No lymphadenopathy. Midline trachea. No thyromegaly. Pharynx is clear. Patient has good dentition. Chest examination; mild bronchial breath sounds left lower lobe. Rest of the lung carranza are clear. S1-S2 audible, no murmurs. Regular rhythm. Abdomen examination benign Extremity exam; continually improving right antecubital fossa superficial thrombophlebitis. No peripheral edema. CONSERVATION SCIENCE TEACHER examination; no focal deficit. Results Result Diagram: 10/25/16 0435 10/25/16 0435 Medications Medications Current Medications Ondansetron HCl (Zofran Inj) 4 mg Q6H PRN IV NAUSEA AND/OR VOMITING Last administered on 10/23/16t 14:39; Admin Dose 4 MG; Start 10/17/16 at 16:00 Acetaminophen (Tylenol Tab) 650 mg Q6H PRN PO PAIN LEVEL 1-3 OR FEVER; Start at 16:00 Acetaminophen/ Hydrocodone Bitart ([place] (5/325)) 1 tab Q6H PRN PO MODERATE PAIN LEVEL 4-6 Last administered on 10/25/16 23:32; Admin Dose 1 TAB; Start at 16:00 Hydromorphone HCl (Dilaudid) 0.5 mg Q4H PRN IV SEVERE PAIN LEVEL 7-10 Last administered on 10/27/16 05:53; Admin Dose 0.5 MG; Start 10/17/16 at 16:00 Magnesium Hydroxide (Milk Of Mag) 30 ml DAILY PRN PO CONSTIPATION; Start at 16:00 Bisacodyl (Dulcolax) 5 mg DAILY PRN PO CONSTIPATION; Start 10/17/16 at 16:00 Famotidine (Pepcid) 20 mg Q12 PO Last administered on 10/27/16 08:18; Admin Dose 20 MG; Start 10/17/16 at 21:00 Guaifenesin/ Dextromethorphan (Robitussin Dm Liquid Cup) 5 ml Q4H PRN PO COUGH Last administered on 10/23/16 02:45; Admin Dose 5 ML; Start 10/17/16 at 21:00 Clotrimazole (Lotrimin Cr) 1 applic BID TOP Last administered on 10/27/16 08: 19; Admin Dose 1 APPLIC; Start 10/21/16 at 16:00; Stop 11/04/16 at 15:59 Diphenhydramine HCl (Benadryl) 25 mg Q6H PRN IV ITCHING Last administered on 07:29; Admin Dose 25 MG; Start 10/25/16 at 03:30 Hydrocortisone (Hydrocortisone 1% Cr) 1 applic TID TOP Last administered on 08:19; Admin Dose 1 APPLIC; Start 10/25/16 at 13:00 MINDY FRAZIER October 27, 2016 09:42
--- NOTE | 2016-10-27 15:17 | DS ---
Date/Time of Note Date/Time of Note DATE: 10/27/16 TIME: 15:14 Discharge Summary Admission/Discharge Info Admit Date/Time October 17, 2016 at 14:08 Discharge Date/Time Final Diagnosis 1. Bilateral pneumonia, consider healthcare acquired, treated 2. Sepsis secondary to underlying pneumonia. resolved 3. Recent bilateral pulmonary embolism, on xarelto 4. Microcytic hypochromic anemia. 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 The patient was recently treated for pulmonary infarct and possible underlying pneumonia with Levaquin. The patient was not discharged home on any antibiotics. The patient verbalized that he started having a productive cough with audible wheezing since 10/16/2016. The patient was also complaining of productive cough with greenish sputum production with blood tinge in it. The patient verbalized subjective fevers. He was complaining of pleuritic chest pain. The patient verbalized that he has been compliant with his Xarelto. The patient denied any palpitations or dizziness. In the emergency room, the patient underwent a CT angiogram of the chest that showed complete resolution of clot identified within the pulmonary arteries compared to the study from 10/04/2016. The CT revealing persistent area of dense consolidation in the left lower lobe with air bronchograms, which are stable and minimally improved. The CTA also showd stable moderate left pleural effusion. CT also revealed slight interval increase of linear right lower lobe atelectasis as well as area of infarction. The patient was treated with IV cefepime and IV vancomycin in the emergency room and inhaled bronchodilators. Patient is treated with multiple antibiotics with vanco, cefepime and levaquin for 10 days. Symptoms improved. He will follow up with PCP in one week. Home Meds Active Scripts Rivaroxaban* (Xarelto*) 15 Mg Tablet, 15 MG PO BID for 21 Days, TAB Prov:LISA CHEUNG 10/15/16 Reported Medications Hydrocodone/Acetaminophen ([place] 5-325 Tablet) 1 Each Tablet, 1 EACH PO BID Y for SEVERE PAIN LEVEL 7-10, TAB 10/17/16 Discontinued Scripts Rivaroxaban* (Xarelto*) 20 Mg Tablet, 20 MG PO WITH DINNER for 90 Days, TAB 3 Refills Prov:LISA CHEUNG 10/15/16 Follow-up Plan PCP in one week Primary Care Provider Not On Staff Doctor TING LINO MD October 27, 2016 15:17
== END 2016-10-27 16:59 | disposition home or self-care (01) | DRG 871 ==
LOC: E/R 09:27 → PP2 14:08
PROVIDERS: ADMIT Family Medicine; ATTEND Family Medicine
DX: A41.9 Sepsis, unspecified organism (principal); J18.9 Pneumonia, unspecified organism; I26.99 Other pulmonary embolism without acute cor pulmonale; D68.59 Other primary thrombophilia; I27.82 Chronic pulmonary embolism; D50.9 Iron deficiency anemia, unspecified; F12.90 Cannabis use, unspecified, uncomplicated; I82.621 Acute embolism and thrombosis of deep veins of right upper extremity; Z72.0 Tobacco use; Z79.01 Long term (current) use of anticoagulants
CPT/HCPCS: 71010; 71275; 80048; 80202; 80307; 81003; 82728; 83540; 83605; 83735; 83880; 84100; 84484; 85025; 85610; 85730; 87040; 87070; 87400; 93005; 93971; 94640; 94644; 94664; J0692; J1170; J1200; J1956; J2405; J3370; J7030; J7040; J7050; Q9967

== ENCOUNTER 2017-12-24 05:45 | Observation (INO) | END 2017-12-26 12:18 | disposition home or self-care (01) ==